=== PATIENT | female | born 1975 | race Caucasian/White ===

== ENCOUNTER 2020-11-13 10:17 | Inpatient (IN) | payer SELFPAY ==
[~2020-11-13] VITALS: Ht 177.8 cm; Wt 99.5 kg
--- NOTE | 2020-11-13 11:51 | RAD ---
Site ID: [id number] EXAMINATION: XR CHEST 1V. HISTORY: 44 years Female shortness of breath. COMPARISON: None. Findings: There are bilateral patchy pulmonary infiltrates mostly in the bases and to lesser extent i n the mid lung perea The heart size is at the upper limits of normal. There is no effusion or pneumo thorax. The mediastinum and radha appear unremarkable. Impression: Patchy bilateral pulmonary infiltrates. Electronically signed by: Colby Dover MD (11/13/2020 11:49 AM) [id number]
--- NOTE | 2020-11-13 12:19 | PHYS DOC ---
General Adult EDM: Chief Complaint: FLU SYMPTOM HPI: HPI: Patient is a 44-year-old female presents emergency department complaining of slow onset of fatigue, increased thirst, nausea, decreased appetite, headaches, muscle cramping, chills, dizziness, coughing up pink frothy sputum for the past 3 days, symptoms started 7 days ago. Denies smoking cigarettes, alcohol consumption, illicit drug use, denies allergies to medicines, takes no prescription medications or vond-rax-bxqtlgn medications at home, states she has no primary care physician, has not received the COVID-19 virus vaccination series. Patient denies other physical complaints or concerns. Review of Systems: Review of Systems: 14 body systems of review of systems have been reviewed. See HPI for pertinent positives and negative responses, otherwise all other systems are negative, nonpertinent or noncontributory. Constitutional: Negative except as outlined in HPI above. Skin: Negative except as outlined in HPI above. Eyes: Negative except as outlined in HPI above. HENT: Negative except as outlined in HPI above. Respiratory: Negative except as outlined in HPI above. Cardiovascular: Negative except as outlined in HPI above. GI: Negative except as outlined in HPI above. : Negative except as outlined in HPI above. Musculoskeletal: Negative except as outlined in HPI above. Integument: Negative except as outlined in HPI above. Neurologic: Negative except as outlined in HPI above. Endocrine: Negative except as outlined in HPI above. Lymphatic: Negative except as outlined in HPI above. Psychiatric: Negative except as outlined in HPI above. Heart Score: C/O Chest Pain: No Risk Factors: Risk Factors: DM, Current or recent (<one month) smoker, HTN, HLP, family history of CAD, obesity. Risk Scores: Score 0 - 3: 2.5% MACE over next 6 weeks - Discharge Home Score 4 - 6: 20.3% MACE over next 6 weeks - Admit for Clinical Observation Score 7 - 10: 72.7% MACE over next 6 weeks - Early Invasive Strategies Physical Exam: PE: Constitutional: Well developed, well nourished, no acute distress, non-toxic appearance. 44-year-old female in no apparent distress. HENT: Normocephalic, atraumatic. Eyes: Conjunctiva normal, no discharge. Neck: Normal range of motion, no stridor. Cardiovascular: No cyanosis appreciated, distal cap refill less than 2 seconds. Regular rate and rhythm. Lungs & Thorax: Patient is in no respiratory distress, no audible adventitious lung sounds appreciated. Lung sounds clear to auscultate all lung perea, normal work of breathing. Abdomen: Nontender, no abnormalities noted. Skin: Warm, dry, no erythema, no rash. Back: No tenderness, no deformities. Extremities: No tenderness, no cyanosis, no clubbing, ROM intact, no edema. Neurologic: Alert and oriented X 3, normal motor function, normal sensory f unction, no focal deficits noted. Psychologic: Affect normal, judgement normal, mood normal. EKG: EKG: EKG performed at 1238 by ED nursing staff shows a sinus tachycardia without other ectopy heart rate 103 bpm, no acute STEMI, no ACS, no acute ischemia appreciated, NC interval 0.188, QTc interval 0.479, EKG interpreted by ED attending physician Dr. Toure. Radiology/Procedures: Radiology/Procedures: PATIENT: LISA PALENCIA ACCOUNT: [id number] : 1975 LOCATION: ER AGE: 44 SEX: F EXAM STATUS: PRE ER ORD. PHYSICIAN: MAEGAN MASON APRN REASON: PUI PROCEDURE: CHEST AP ONLY Site ID: [id number] EXAMINATION: XR CHEST 1V. HISTORY: 44 years Female shortness of breath. COMPARISON: None. Findings: There are bilateral patchy pulmonary infiltrates mostly in the bases and to lesser extent in the mid lung peera The heart size is at the upper limits of normal. There is no effusion or pneumothorax. The mediastinum and radha appear unremarkable. Impression: Patchy bilateral pulmonary infiltrates. Electronically signed by: Colby Dover MD (11/13/2020 11:49 AM) [id number] Course & Med Decision Making: Course & Med Decision Making Pertinent Labs and Imaging studies reviewed. (See chart for details) 44-year-old female, vital signs reviewed, presents emergency department concerning COVID-19 virus type signs and symptoms. Patient's physical examination concerning for hypoxia most likely viral in nature, the patient is not febrile is requiring 4 L nasal cannula to maintain O2 sat above 92% will order cardiorespiratory work-up, COVID-19 testing. Patient's triage O2 sat 83% on room air. Patient was placed on 4 L O2 by nasal cannula by nursing staff. Rapid COVID-19 virus testing positive, chest x-ray consistent with atypical pneumonia, will order CT angio chest to rule out pulmonary emboli CT angio chest nonconcerning for pulmonary embolus, will order Rocephin/azithromycin/Decadron treatment related to atypical versus viral pneumonia most likely Covid pneumonia. Discussed with patient all lab and imag ing findings, recommendation for admission related to hypoxia, patient is amendable to this plan, patient's serum potassium 3.0, will give p.o. potassium supplement in ED today. Discussed patient case and ED work-up with inpatient management physician Dr. Barnes who agrees patient's ED case warrants admission to the hospital for COVID-19 virus positive, hypoxia, hypokalemia, community-acquired pneumonia. Patient awaiting bed assignment by housekeeping room inspector Dr. Barnes will examine patient for ongoing inpatient hospital management, has assumed patient care. Dragon Disclaimer: Dragon Disclaimer: This electronic medical record was generated, in whole or in part, using a voice recognition dictation system. Departure Departure Impression: Primary Impression: Lab test positive for detection of COVID-19 virus Additional Impressions: Community acquired pneumonia Qualified Codes: J18.9 - Pneumonia, unspecified organism Hypoxia Hypokalemia Disposition: ADMITTED INPATIENT Admitting Physician: FLORENTINO (Admit to Dr. Barnes to the CVC unit.) Condition: GUARDED Referrals: NO PCP (PCP) MAEGAN MASON APRN Nov 13, 2020 12:19
[2020-11-13 13:14] LABS: BASO % 0 % (0-3); EOS % 0 % (0-3); HEMATOCRIT 38.9 % (36.0-47.0); HEMOGLOBIN 13.6 g/dL (12.0-15.5); LYMPH % 20 % (24-48); MEAN CORPUSCULAR HEMOGLOBIN 31 pg (25-35); MEAN CORPUSCULAR HGB CONC 35 g/dL (31-37); MEAN CORPUSCULAR VOLUME 90 fL (79-100); MONO # 0.3 x10^3/uL (0.0-1.1); MONO % 7 % (0-9); NEUT # 3.6 x10^3/uL (1.8-7.7); NEUT % 73 % (31-73); PLATELET COUNT 153 x10^3/uL (140-400); RED BLOOD COUNT 4.33 x10^6/uL (3.50-5.40); RED CELL DISTRIBUTION WIDTH 13.8 % (11.5-14.5)
[2020-11-13 13:17] LABS: BILIRUBIN,URINE NEGATIVE (NEG); CLARITY,URINE CLEAR; COLOR,URINE YELLOW; NITRITE,URINE NEGATIVE (NEG); PH,URINE 6.5 (<5.0-8.0); PROTEIN,URINE 30 mg/dL (NEG-TRACE); UROBILINOGEN,URINE 0.2 mg/dL (0.2 mg/dL)
[2020-11-13 13:30] LABS: BACTERIA,URINE FEW /HPF (0-FEW); WBC,URINE OCC /HPF (0-4)
[2020-11-13 13:31] LABS: ALBUMIN 3.2 g/dL (3.4-5.0); ALBUMIN/GLOBULIN RATIO 0.8 (1.0-1.7); CALCIUM 8.9 mg/dL (8.5-10.1); CREATININE 0.9 mg/dL (0.6-1.0); GFR 67.4; TOTAL BILIRUBIN 0.3 mg/dL (0.2-1.0); TOTAL PROTEIN 7.3 g/dL (6.4-8.2)
[2020-11-13] MEDS ORDERED: CONTRAST GIVEN. MC PRN (14:15)
[2020-11-13] MEDS ORDERED: IOHEXOL 350 MG/ML 100 ML VIAL. IV ONE (14:15)
--- NOTE | 2020-11-13 14:24 | RAD ---
CTA CHEST INDICATION: Shortness of breath, hypoxia, PE study Comparison: Chest radiograph 11/13/2020. TECHNIQUE: Following the uneventful administration of intravenous contrast, 100 cc Omnipaque 350, axi al CT sections were obtained through the lungs and upper abdomen. Multiplanar reconstructions and MIP images were obtained. PQRS compliance statement: One or more of the following individualized dose reduction techniques were utilized for this examinat ion: 1. Automated exposure control 2. Adjustment of the mA and/or kV according to patient size 3. Use of iterative reconstruction technique FINDINGS: Pulmonary arteries: No evidence of pulmonary thromboembolic disease Lungs and Airways: Patchy bilateral groundglass opacities and consolidations. No abnormality of the c entral airways. Pleura: The pleural spaces are normal. Heart and Mediastinum: The visualized thyroid is normal in size and attenuation. No axillary or supra clavicular lymphadenopathy. No mediastinal, hilar or retrocrural lymphadenopathy. Calcified mediastin al lymph nodes consistent with remote granulomatous disease. The heart and pericardium are within nor mal limits. The great vessels of the thorax are normal. Abdomen: Hepatic steatosis. Bones and Soft Tissues: The visualized bones and chest wall soft tissues are within normal limits. IMPRESSION: 1. No evidence of pulmonary thromboembolic disease. 2. Patchy bilateral opacities, likely multifocal infection. Electronically signed by: Antonio Robins MD (11/13/2020 2:21 PM) [id number]
[2020-11-13] MEDS ORDERED: cefTRIAXone IV Push 1 GM VIAL. IVP ONE (14:45)
[2020-11-13] MEDS ORDERED: AZITHRMYCN 500MG IVPB FOR OMNI 250 ML IV ONE (14:45)
[2020-11-13] MEDS ORDERED: DEXAMETHASONE SOD PHOS 20 MG/5 ML VIAL. IV ONE (14:45)
[2020-11-13] MEDS ORDERED: POTASSIUM CHLORIDE 20 MEQ TABLET.ER. PO ONE (15:00)
--- NOTE | 2020-11-13 15:57 | PDOC1 ---
History and Physical Date of Service: DOS: DATE: 11/13/20 TIME: 15:53 Chief Complaint: Chief Complain: Flulike symptoms History of Present Illness: HPI: History obtained from discussion with the ED physician and chart review: 44-year-old female with no significant past medical history who presents with a week long symptoms of fatigue, thirst, nausea, muscle aches, headaches, cough that is worse in the last 3 days. Patient reports sick contacts which includes mom and who is also in the ED. Family and also the patient admits that they are scared of the vaccine and also scared of receiving any antiviral medications. Denies smoking, drug use, taking any new medications or vadi-xcy-ahvvwjz medications or seeing a PCP. Patient is not Covid vaccinated. Denies any fevers, chest pain, abdominal pain, diarrhea, pneumaturia, or dysuria. Past Medical/Surgical History: PMH/PSH: No past medical or surgical history Allergies: Allergies: Coded Allergies: No Known Drug Allergies (Unverified , 11/13/20) Family History: Family History: Reviewed with no relevant findings Social History: Social History: Denies any alcohol, drugs or tobacco abuse. Current Medications: Current Medications Current Medications Iohexol (Omnipaque 350 Mg/ml) 100 ml 1X ONCE IV Last administered on 11/13/20at 14:18; Start 11/13/20 at 14:15; Stop 11/13/20 at 14:16; Status DC Info (CONTRAST GIVEN -- Rx MONITORING) 1 each PRN DAILY PRN MC SEE COMMENTS; Start 11/13/20 at 14:15; Stop 11/15/20 at 14:14 Ceftriaxone Sodium (Rocephin) 1 gm 1X ONCE IVP Last administered on 11/13/20at 15:41; Start 11/13/20 at 14:45; Stop 11/13/20 at 14:57; Status DC Azithromycin 250 ml @ 250 mls/hr 1X ONCE IV Last administered on 11/13/20at 15:40; Start 11/13/20 at 14:45; Stop 11/13/20 at 15:44; Status DC Dexamethasone Sodium Phosphate (Decadron) 10 mg 1X ONCE IV Last administered on 11/13/20at 15:39; Start 11/13/20 at 14:45; Stop 11/13/20 at 14:57; Status DC Potassium Chloride (Klor-Con) 40 meq 1X ONCE PO Last administered on 11/13/20at 15:41; Start 11/13/20 at 15:00; Stop 11/13/20 at 15:01; Status DC ROS: Review of Systems Review of System REVIEW OF SYSTEMS: GENERAL: Denies weakness SKIN: No bruising, hair changes or rashes. EYES: No blurred, double or loss of vision. NOSE AND THROAT: No history of nosebleeds, hoarseness or sore throat. HEART: No history of palpitations, chest pain or shortness of breath on exertion. LUNGS: Denies cough, hemoptysis, wheezing or shortness of breath. GASTROINTESTINAL: Denies changes in appetite, nausea, vomiting, diarrhea or constipation. GENITOURINARY: No history of frequency, urgency, hesitancy or nocturia. NEUROLOGIC: Denies history of numbness, tingling, or tremor. PSYCHIATRIC: No history of panic, anxiety or depression. ENDOCRINE: No history of heat or cold intolerance, polyuria or polydipsia. EXTREMITIES: Denies joint pain, pain on walking or stiffness. Physical Exam: Vital Signs: Vital Signs Date Time Temp Pulse Resp B/P (MAP) Pulse Ox O2 Delivery O2 Flow Rate FiO2 11/13/20 13:17 100 19 121/66 (84) 92 Nasal Cannula 5.0 11/13/20 11:26 99.2 99.2 Physcial Exam: General: Well developed, well nourished, mild distress, nasal cannula intact HEENT: Pupils equally round and reactive to light, EOMI, no discharge, normal conjunctiva Neck: Supple, no nuchal rigidity, no JVD, trachea midline, no tenderness Cardiac: RRR, no murmurs, no gallops, no rubs Chest/Lungs: CTAB, no wheeze, no rhonchi, no crackles Abdomen: soft, non-distended, no guarding, no peritoneal signs, non-tender Back: No tenderness Extremities: no edema, pulses intact, non-tender,capillary refill <3 sec bilateral upper and lower extremities, Neuro: Alert and oriented x 4, no focal deficits, normal speech Labs: Labs: Laboratory Tests Test 11/13/20 12:38 11/13/20 12:55 11/13/20 13:02 Urine Collection Type Unknown Urine Color Yellow Urine Clarity Clear Urine pH 6.5 (<5.0-8.0) Urine Specific [place] <=1.005 (1.000-1.030) Urine Protein 30 mg/dL (NEG-TRACE) Urine Glucose (UA) Negative mg/dL (NEG) Urine Ketones (Stick) Negative mg/dL (NEG) Urine Blood Small (NEG) Urine Nitrite Negative (NEG) Urine Bilirubin Negative (NEG) Urine Urobilinogen Dipstick 0.2 mg/dL (0.2 mg/dL) Urine Leukocyte Esterase Negative (NEG) Urine RBC 1-2 /HPF (0-2) Urine WBC Occ /HPF (0-4) Urine Squamous Epithelial Cells Mod /LPF Urine Bacteria Few /HPF (0-FEW) White Blood Count 5.0 x10^3/uL (4.0-11.0) Red Blood Count 4.33 x10^6/uL (3.50-5.40) Hemoglobin 13.6 g/dL (12.0-15.5) Hematocrit 38.9 % (36.0-47.0) Mean Corpuscular Volume 90 fL (79-100) Mean Corpuscular Hemoglobin 31 pg (25-35) Mean Corpuscular Hemoglobin Concent 35 g/dL (31-37) Red Cell Distribution Width 13.8 % (11.5-14.5) Platelet Count 153 x10^3/uL (140-400) Neutrophils (%) (Auto) 73 % (31-73) Lymphocytes (%) (Auto) 20 % (24-48) Monocytes (%) (Auto) 7 % (0-9) Eosinophils (%) (Auto) 0 % (0-3) Basophils (%) (Auto) 0 % (0-3) Neutrophils # (Auto) 3.6 x10^3/uL (1.8-7.7) Lymphocytes # (Auto) 1.0 x10^3/uL (1.0-4.8) Monocytes # (Auto) 0.3 x10^3/uL (0.0-1.1) Eosinophils # (Auto) 0.0 x10^3/uL (0.0-0.7) Basophils # (Auto) 0.0 x10^3/uL (0.0-0.2) Sodium Level 136 mmol/L (136-145) Potassium Level 3.0 mmol/L (3.5-5.1) Chloride Level 98 mmol/L (98-107) Carbon Dioxide Level 33 mmol/L (21-32) Anion Gap 5 (6-14) Blood Urea Nitrogen 5 mg/dL (7-20) Creatinine 0.9 mg/dL (0.6-1.0) Estimated GFR (Cockcroft-Gault) 67.4 BUN/Creatinine Ratio 6 (6-20) Glucose Level 104 mg/dL (70-99) Calcium Level 8.9 mg/dL (8.5-10.1) Total Bilirubin 0.3 mg/dL (0.2-1.0) Aspartate Amino Transf (AST/SGOT) 161 U/L (15-37) Alanine Aminotransferase (ALT/SGPT) 134 U/L (14-59) Alkaline Phosphatase 118 U/L (46-116) Creatine Kinase 1106 U/L (26-192) Creatine Kinase MB (Mass) 2.6 ng/mL (0.0-3.6) Creatine Kinase MB Relative Index 0.2 % (0-4) Troponin I Quantitative < 0.017 ng/mL (0.000-0.055) Total Protein 7.3 g/dL (6.4-8.2) Albumin 3.2 g/dL (3.4-5.0) Albumin/Globulin Ratio 0.8 (1.0-1.7) SARS-CoV-2 Antigen (Rapid) Positive (NEGATIVE) Laboratory Tests Test 11/13/20 12:38 11/13/20 12:55 11/13/20 13:02 Urine Collection Type Unknown Urine Color Yellow Urine Clarity Clear Urine pH 6.5 (<5.0-8.0) Urine Specific [place] <=1.005 (1.000-1.030) Urine Protein 30 mg/dL (NEG-TRACE) Urine Glucose (UA) Negative mg/dL (NEG) Urine Ketones (Stick) Negative mg/dL (NEG) Urine Blood Small (NEG) Urine Nitrite Negative (NEG) Urine Bilirubin Negative (NEG) Urine Urobilinogen Dipstick 0.2 mg/dL (0.2 mg/dL) Urine Leukocyte Esterase Negative (NEG) Urine RBC 1-2 /HPF (0-2) Urine WBC Occ /HPF (0-4) Urine Squamous Epithelial Cells Mod /LPF Urine Bacteria Few /HPF (0-FEW) White Blood Count 5.0 x10^3/uL (4.0-11.0) Red Blood Count 4.33 x10^6/uL (3.50-5.40) Hemoglobin 13.6 g/dL (12.0-15.5) Hematocrit 38.9 % (36.0-47.0) Mean Corpuscular Volume 90 fL (79-100) Mean Corpuscular Hemoglobin 31 pg (25-35) Mean Corpuscular Hemoglobin Concent 35 g/dL (31-37) Red Cell Distribution Width 13.8 % (11.5-14.5) Platelet Count 153 x10^3/uL (140-400) Neutrophils (%) (Auto) 73 % (31-73) Lymphocytes (%) (Auto) 20 % (24-48) Monocytes (%) (Auto) 7 % (0-9) Eosinophils (%) (Auto) 0 % (0-3) Basophils (%) (Auto) 0 % (0-3) Neutrophils # (Auto) 3.6 x10^3/uL (1.8-7.7) Lymphocytes # (Auto) 1.0 x10^3/uL (1.0-4.8) Monocytes # (Auto) 0.3 x10^3/uL (0.0-1.1) Eosinophils # (Auto) 0.0 x10^3/uL (0.0-0.7) Basophils # (Auto) 0.0 x10^3/uL (0.0-0.2) Sodium Level 136 mmol/L (136-145) Potassium Level 3.0 mmol/L (3.5-5.1) Chloride Level 98 mmol/L (98-107) Carbon Dioxide Level 33 mmol/L (21-32) Anion Gap 5 (6-14) Blood Urea Nitrogen 5 mg/dL (7-20) Creatinine 0.9 mg/dL (0.6-1.0) Estimated GFR (Cockcroft-Gault) 67.4 BUN/Creatinine Ratio 6 (6-20) Glucose Level 104 mg/dL (70-99) Calcium Level 8.9 mg/dL (8.5-10.1) Total Bilirubin 0.3 mg/dL (0.2-1.0) Aspartate Amino Transf (AST/SGOT) 161 U/L (15-37) Alanine Aminotransferase (ALT/SGPT) 134 U/L (14-59) Alkaline Phosphatase 118 U/L (46-116) Creatine Kinase 1106 U/L (26-192) Creatine Kinase MB (Mass) 2.6 ng/mL (0.0-3.6) Creatine Kinase MB Relative Index 0.2 % (0-4) Troponin I Quantitative < 0.017 ng/mL (0.000-0.055) Total Protein 7.3 g/dL (6.4-8.2) Albumin 3.2 g/dL (3.4-5.0) Albumin/Globulin Ratio 0.8 (1.0-1.7) SARS-CoV-2 Antigen (Rapid) Positive (NEGATIVE) Images: Images PROCEDURE: CHEST AP ONLY Impression: Patchy bilateral pulmonary infiltrates. PROCEDURE: CT ANGIOGRAPHY CHEST IMPRESSION: 1. No evidence of pulmonary thromboembolic disease. 2. Patchy bilateral opacities, likely multifocal infection. Assessment/Plan Assessment/Plan Acute hypoxic respiratory failure COVID-19 pneumonia Elevated creatinine concerning for rhabdomyolysis versus myopathy Lymphopenia Transaminitis Hypokalemia Moderate protein malnutrition Admit to medicine for further management Repeat CK levels in the morning Pulmonology consult Continue IV thiamine and vitamin C IV Solu-Medrol every 8 hours IV Remdesivir if patient requires O2 supplementation beyond there baseline, however patient is refusing Remdesivir at this time Pending ferritin, LDH, CRP, D-dimer labs Titrate O2 supplementation to maintain O2 saturation greater than 92% Empiric IV antibiotics if patient has clinical presentation for bacterial pneumonia Lovenox for DVT prophylaxis Protonix GI prophylaxis ADA diet Full code Discussed with RN and SW Disposition inpatient management as above Surrogate decision maker is the Mathew rodriguez In addition to my E/M visit, advance care planning done with A total time of 30 minutes was spent from 330 to 430 face to face in discussion with the patient in regards to their goals of care and CODE STATUS. It was explained in depth to the patient that patient does not normally wear oxygen and the fact that she requires O2 means that she is fighting an active infection of Covid. It is also consider the fact that her family is also infected with Covid and they have all have symptoms. Unfortunately, patient is still refusing any IV Remdesivir and has agreed to steroids, O2 supplementation, and some vitamin supplementation. Justifications for Admission Other Justification MARI EARL MD Nov 13, 2020 15:57
[2020-11-13] MEDS ORDERED: DEXTROSE 50% 25 GM / 50ML DISP.SYRIN. IV PRN (16:00)
[2020-11-13] MEDS ORDERED: REMDESIVIR LOAD in IV NORMAL SALINE 250ML TV IV ONE ×2 (18:00→20:00)
[2020-11-13] MEDS: ACETAMINOPHEN 325 MG TABLET. PO PRN (18:04)
[2020-11-13] MEDS: methylPREDNISolone SOD SUCC PF 40 MG/ML VIAL. IV SCH ×2 (19:14→19:16)
[2020-11-13] MEDS: ENOXAPARIN 40 MG/0.4 ML SYRINGE. SQ SCH (19:15)
[2020-11-13] MEDS: BENZONATATE 100 MG CAPSULE. PO PRN (19:15)
[2020-11-13] MEDS: ASCORBIC ACID 1,000 MG TABLET PO SCH (19:15)
[2020-11-13] MEDS: guaiFENesin DM 200MG/20MG 10 ML SYRUP PO PRN (19:15)
[2020-11-13 19:33] VITALS: BP 126/81
[2020-11-13] MEDS ORDERED: REMDESIVIR 100mg in NORMAL SALINE 250ML X 4 DAYS IV SCH (21:00)
[2020-11-13] MEDS ORDERED: BENZONATATE 100 MG CAPSULE. PO SCH (22:00)
[2020-11-13] MEDS ORDERED: methylPREDNISolone SOD SUCC PF 40 MG/ML VIAL. IV SCH (22:00)
[2020-11-13 23:30] VITALS: BP 106/79
[2020-11-14] MEDS: BENZONATATE 100 MG CAPSULE. PO PRN ×2 (03:20→14:43)
[2020-11-14] MEDS: guaiFENesin DM 200MG/20MG 10 ML SYRUP PO PRN ×2 (03:20→14:43)
[2020-11-14 03:30] VITALS: BP 143/88
[2020-11-14] MEDS: methylPREDNISolone SOD SUCC PF 40 MG/ML VIAL. IV SCH ×3 (05:01→20:59)
[2020-11-14 05:44] LABS: BASO % 0 % (0-3); EOS % 0 % (0-3); HEMATOCRIT 39.5 % (36.0-47.0); HEMOGLOBIN 13.6 g/dL (12.0-15.5); LYMPH # 1.1 x10^3/uL (1.0-4.8); LYMPH % 20 % (24-48); MEAN CORPUSCULAR HEMOGLOBIN 31 pg (25-35); MEAN CORPUSCULAR HGB CONC 35 g/dL (31-37); MEAN CORPUSCULAR VOLUME 91 fL (79-100); MONO # 0.5 x10^3/uL (0.0-1.1); MONO % 8 % (0-9); NEUT # 3.9 x10^3/uL (1.8-7.7); NEUT % 72 % (31-73); PLATELET COUNT 165 x10^3/uL (140-400); RED BLOOD COUNT 4.34 x10^6/uL (3.50-5.40); RED CELL DISTRIBUTION WIDTH 13.9 % (11.5-14.5); WHITE BLOOD COUNT 5.5 x10^3/uL (4.0-11.0)
[2020-11-14 05:59] LABS: CALCIUM 8.6 mg/dL (8.5-10.1); CREATININE 0.9 mg/dL (0.6-1.0); GFR 67.4; MAGNESIUM 2.3 mg/dL (1.8-2.4); PHOSPHORUS 3.8 mg/dL (2.6-4.7); POTASSIUM 3.4 mmol/L (3.5-5.1)
[2020-11-14 07:00] VITALS: BP 128/95
[2020-11-14] MEDS: ZINC SULFATE 220 MG CAPSULE. PO SCH (09:07)
[2020-11-14] MEDS: THIAMINE 100 MG TABLET. PO SCH (09:07)
[2020-11-14] MEDS: ASCORBIC ACID 1,000 MG TABLET PO SCH ×3 (09:07→19:42)
[2020-11-14] MEDS: FLUTICASONE 50MCG/NASAL SPRAY 16GM BOTTLE. NS SCH (09:07)
[2020-11-14] MEDS: PANTOPRAZOLE 40 MG TABLET.DR. PO SCH (09:07)
[2020-11-14 10:18] VITALS: BP 129/91
--- NOTE | 2020-11-14 12:59 | NUR ---
SS following for discharge planning. SS reviewed pt chart and discussed with pt RN. Pt is from home with spouse and is currently on three liters venti mask and twelve liters nasal canula. COVID19 positive. Pt on IV Remdesivir and IV Solu-Medrol. Self pay. Med Assist following. SS will continue to follow for discharge planning.
--- NOTE | 2020-11-14 13:02 | PDOC ---
[employer] PROGRESS NOTE Date of Service DOS: DATE: 11/14/20 TIME: 12:59 Chief Complaint Chief Complaint Acute hypoxic respiratory failure COVID-19 pneumonia Elevated creatinine concerning for rhabdomyolysis versus myopathy Lymphopenia Transaminitis Hypokalemia Moderate protein malnutrition History of Present Illness History of Present Illness 11/14/2020: Pt seen and examined. Discussed with RN. Chart reviewed. On 4 L O2 per NC. Vitals/I&O Vitals/I&O: Vital Signs Date Time Temp Pulse Resp B/P (MAP) Pulse Ox O2 Delivery O2 Flow Rate FiO2 11/14/20 10:18 98.6 88 22 129/91 (104) 90 3L VENTIMASK & 12L NASAL CANNULA 98.6 11/14/20 08:00 6.0 I & O 11/13/20 11/13/20 11/14/20 15:00 23:00 07:00 Intake Total 500 ml 220 ml Output Total 300 ml 300 ml Balance 200 ml -80 ml Physical Exam General: Alert Labs Labs: Laboratory Tests Test 11/13/20 13:02 11/13/20 16:56 11/14/20 04:45 SARS-CoV-2 Antigen (Rapid) Positive (NEGATIVE) D-Dimer (Brissa) 1.87 ug/mlFEU (0.00-0.50) White Blood Count 5.5 x10^3/uL (4.0-11.0) Red Blood Count 4.34 x10^6/uL (3.50-5.40) Hemoglobin 13.6 g/dL (12.0-15.5) Hematocrit 39.5 % (36.0-47.0) Mean Corpuscular Volume 91 fL (79-100) Mean Corpuscular Hemoglobin 31 pg (25-35) Mean Corpuscular Hemoglobin Concent 35 g/dL (31-37) Red Cell Distribution Width 13.9 % (11.5-14.5) Platelet Count 165 x10^3/uL (140-400) Neutrophils (%) (Auto) 72 % (31-73) Lymphocytes (%) (Auto) 20 % (24-48) Monocytes (%) (Auto) 8 % (0-9) Eosinophils (%) (Auto) 0 % (0-3) Basophils (%) (Auto) 0 % (0-3) Neutrophils # (Auto) 3.9 x10^3/uL (1.8-7.7) Lymphocytes # (Auto) 1.1 x10^3/uL (1.0-4.8) Monocytes # (Auto) 0.5 x10^3/uL (0.0-1.1) Eosinophils # (Auto) 0.0 x10^3/uL (0.0-0.7) Basophils # (Auto) 0.0 x10^3/uL (0.0-0.2) Sodium Level 140 mmol/L (136-145) Potassium Level 3.4 mmol/L (3.5-5.1) Chloride Level 101 mmol/L (98-107) Carbon Dioxide Level 29 mmol/L (21-32) Anion Gap 10 (6-14) Blood Urea Nitrogen 8 mg/dL (7-20) Creatinine 0.9 mg/dL (0.6-1.0) Estimated GFR (Cockcroft-Gault) 67.4 Glucose Level 149 mg/dL (70-99) Calcium Level 8.6 mg/dL (8.5-10.1) Phosphorus Level 3.8 mg/dL (2.6-4.7) Magnesium Level 2.3 mg/dL (1.8-2.4) Creatine Kinase 959 U/L (26-192) Review of Systems Review of Systems: Pt complains of cough and SOB. Assessment and Plan Assessmemt and Plan Problems Medical Problems: (1) Community acquired pneumonia Status: Acute (2) Hypokalemia Status: Acute (3) Hypoxia Status: Acute (4) Lab test positive for detection of COVID-19 virus Status: Acute Acute hypoxic respiratory failure COVID-19 pneumonia Elevated creatinine concerning for rhabdomyolysis versus myopathy Lymphopenia Transaminitis Hypokalemia Moderate protein malnutrition Plan: Multivitamin with minerals ASA Robitussin with codeine Immodium Continue O2 per MS Trend labs Home meds DVT Prophylaxis Full code Comment Review of Relevant I have reviewed the following items lenny (where applicable) has been applied. Medications: Current Medications Medications (Trade) Dose Ordered Sig/Mona Route PRN Reason Start Time Stop Time Status Last Admin Dose Admin Iohexol (Omnipaque 350 Mg/ml) 100 ml 1X ONCE IV 11/13/20 14:15 11/13/20 14:16 DC 11/13/20 14:18 Ceftriaxone Sodium (Rocephin) 1 gm 1X ONCE IVP 11/13/20 14:45 11/13/20 14:57 DC 11/13/20 15:41 Azithromycin 250 ml @ 250 mls/hr 1X ONCE IV 11/13/20 14:45 11/13/20 15:44 DC 11/13/20 15:40 Dexamethasone Sodium Phosphate (Decadron) 10 mg 1X ONCE IV 11/13/20 14:45 11/13/20 14:57 DC 11/13/20 15:39 Potassium Chloride (Klor-Con) 40 meq 1X ONCE PO 11/13/20 15:00 11/13/20 15:01 DC 11/13/20 15:41 Ascorbic Acid (Vitamin C) 3,000 mg TID PO 11/13/20 21:00 11/14/20 09:07 Thiamine Mononitrate (Vitamin B-1) 300 mg DAILY PO 11/14/20 09:00 11/14/20 09:07 Zinc Sulfate (Orazinc) 220 mg DAILY PO 11/14/20 09:00 11/14/20 09:07 Acetaminophen (Tylenol) 650 mg PRN Q4HRS PRN PO TEMP OVER 100.4F OR MILD PAIN 11/13/20 16:00 11/13/20 18:04 Enoxaparin Sodium (Lovenox 40mg Syringe) 40 mg Q24H SQ 11/13/20 21:00 11/13/20 19:15 Pantoprazole Sodium (Protonix) 40 mg DAILYAC PO 11/14/20 07:30 11/14/20 09:07 Remdesivir 200 mg/ Sodium Chloride 210 ml @ 210 mls/hr 1X ONCE IV 11/13/20 20:00 11/13/20 20:59 DC 11/13/20 19:14 Fluticasone Propionate (Flonase) 2 spray DAILY NS 11/14/20 09:00 11/14/20 09:07 Guaifenesin (Robitussin Dm) 10 ml PRN Q6HRS PRN PO COUGH 11/13/20 18:45 11/14/20 03:20 Benzonatate (Tessalon Perle) 100 mg Q8HRS PRN PO COUGH 11/13/20 19:15 11/14/20 03:20 Methylprednisolone Sodium Succinate (SOLU-Medrol 40MG VIAL) 40 mg Q8HRS IV 11/13/20 19:30 11/14/20 05:01 Justifications for Admission Other Justification COVID-19 positive test (U07.1, COVID-19) with Acute Pneumonia (J12.89, Other viral pneumonia) (If respiratory failure or sepsis present, add as separate assessment) SMITHA CLEVELAND III DO Nov 14, 2020 13:02
--- NOTE | 2020-11-14 14:18 | PDOC ---
PULMONARY PROGRESS NOTES DATE: 11/14/20 TIME: 14:17 Vitals Vital Signs Date Time Temp Pulse Resp B/P (MAP) Pulse Ox O2 Delivery O2 Flow Rate FiO2 11/14/20 10:18 98.6 88 22 129/91 (104) 90 3L V[place] & 12L NASAL CANNULA 98.6 11/14/20 08:00 6.0 Labs Laboratory Tests Test 11/13/20 12:38 11/13/20 12:55 11/13/20 13:02 11/13/20 16:56 Urine Collection Type Unknown Urine Color Yellow Urine Clarity Clear Urine pH 6.5 (<5.0-8.0) Urine Specific [place] <=1.005 (1.000-1.030) Urine Protein 30 mg/dL (NEG-TRACE) Urine Glucose (UA) Negative mg/dL (NEG) Urine Ketones (Stick) Negative mg/dL (NEG) Urine Blood Small (NEG) Urine Nitrite Negative (NEG) Urine Bilirubin Negative (NEG) Urine Urobilinogen Dipstick 0.2 mg/dL (0.2 mg/dL) Urine Leukocyte Esterase Negative (NEG) Urine RBC 1-2 /HPF (0-2) Urine WBC Occ /HPF (0-4) Urine Squamous Epithelial Cells Mod /LPF Urine Bacteria Few /HPF (0-FEW) White Blood Count 5.0 x10^3/uL (4.0-11.0) Red Blood Count 4.33 x10^6/uL (3.50-5.40) Hemoglobin 13.6 g/dL (12.0-15.5) Hematocrit 38.9 % (36.0-47.0) Mean Corpuscular Volume 90 fL (79-100) Mean Corpuscular Hemoglobin 31 pg (25-35) Mean Corpuscular Hemoglobin Concent 35 g/dL (31-37) Red Cell Distribution Width 13.8 % (11.5-14.5) Platelet Count 153 x10^3/uL (140-400) Neutrophils (%) (Auto) 73 % (31-73) Lymphocytes (%) (Auto) 20 % (24-48) Monocytes (%) (Auto) 7 % (0-9) Eosinophils (%) (Auto) 0 % (0-3) Basophils (%) (Auto) 0 % (0-3) Neutrophils # (Auto) 3.6 x10^3/uL (1.8-7.7) Lymphocytes # (Auto) 1.0 x10^3/uL (1.0-4.8) Monocytes # (Auto) 0.3 x10^3/uL (0.0-1.1) Eosinophils # (Auto) 0.0 x10^3/uL (0.0-0.7) Basophils # (Auto) 0.0 x10^3/uL (0.0-0.2) Sodium Level 136 mmol/L (136-145) Potassium Level 3.0 mmol/L (3.5-5.1) Chloride Level 98 mmol/L (98-107) Carbon Dioxide Level 33 mmol/L (21-32) Anion Gap 5 (6-14) Blood Urea Nitrogen 5 mg/dL (7-20) Creatinine 0.9 mg/dL (0.6-1.0) Estimated GFR (Cockcroft-Gault) 67.4 BUN/Creatinine Ratio 6 (6-20) Glucose Level 104 mg/dL (70-99) Calcium Level 8.9 mg/dL (8.5-10.1) Total Bilirubin 0.3 mg/dL (0.2-1.0) Aspartate Amino Transf (AST/SGOT) 161 U/L (15-37) Alanine Aminotransferase (ALT/SGPT) 134 U/L (14-59) Alkaline Phosphatase 118 U/L (46-116) Creatine Kinase 1106 U/L (26-192) Creatine Kinase MB (Mass) 2.6 ng/mL (0.0-3.6) Creatine Kinase MB Relative Index 0.2 % (0-4) Troponin I Quantitative < 0.017 ng/mL (0.000-0.055) Total Protein 7.3 g/dL (6.4-8.2) Albumin 3.2 g/dL (3.4-5.0) Albumin/Globulin Ratio 0.8 (1.0-1.7) Procalcitonin 0.17 ng/mL (0.00-0.10) SARS-CoV-2 Antigen (Rapid) Positive (NEGATIVE) D-Dimer (Brissa) 1.87 ug/mlFEU (0.00-0.50) Test 11/14/20 04:45 White Blood Count 5.5 x10^3/uL (4.0-11.0) Red Blood Count 4.34 x10^6/uL (3.50-5.40) Hemoglobin 13.6 g/dL (12.0-15.5) Hematocrit 39.5 % (36.0-47.0) Mean Corpuscular Volume 91 fL (79-100) Mean Corpuscular Hemoglobin 31 pg (25-35) Mean Corpuscular Hemoglobin Concent 35 g/dL (31-37) Red Cell Distribution Width 13.9 % (11.5-14.5) Platelet Count 165 x10^3/uL (140-400) Neutrophils (%) (Auto) 72 % (31-73) Lymphocytes (%) (Auto) 20 % (24-48) Monocytes (%) (Auto) 8 % (0-9) Eosinophils (%) (Auto) 0 % (0-3) Basophils (%) (Auto) 0 % (0-3) Neutrophils # (Auto) 3.9 x10^3/uL (1.8-7.7) Lymphocytes # (Auto) 1.1 x10^3/uL (1.0-4.8) Monocytes # (Auto) 0.5 x10^3/uL (0.0-1.1) Eosinophils # (Auto) 0.0 x10^3/uL (0.0-0.7) Basophils # (Auto) 0.0 x10^3/uL (0.0-0.2) Sodium Level 140 mmol/L (136-145) Potassium Level 3.4 mmol/L (3.5-5.1) Chloride Level 101 mmol/L (98-107) Carbon Dioxide Level 29 mmol/L (21-32) Anion Gap 10 (6-14) Blood Urea Nitrogen 8 mg/dL (7-20) Creatinine 0.9 mg/dL (0.6-1.0) Estimated GFR (Cockcroft-Gault) 67.4 Glucose Level 149 mg/dL (70-99) Calcium Level 8.6 mg/dL (8.5-10.1) Phosphorus Level 3.8 mg/dL (2.6-4.7) Magnesium Level 2.3 mg/dL (1.8-2.4) Creatine Kinase 959 U/L (26-192) Laboratory Tests Test 11/13/20 16:56 11/14/20 04:45 D-Dimer (Brissa) 1.87 ug/mlFEU (0.00-0.50) White Blood Count 5.5 x10^3/uL (4.0-11.0) Red Blood Count 4.34 x10^6/uL (3.50-5.40) Hemoglobin 13.6 g/dL (12.0-15.5) Hematocrit 39.5 % (36.0-47.0) Mean Corpuscular Volume 91 fL (79-100) Mean Corpuscular Hemoglobin 31 pg (25-35) Mean Corpuscular Hemoglobin Concent 35 g/dL (31-37) Red Cell Distribution Width 13.9 % (11.5-14.5) Platelet Count 165 x10^3/uL (140-400) Neutrophils (%) (Auto) 72 % (31-73) Lymphocytes (%) (Auto) 20 % (24-48) Monocytes (%) (Auto) 8 % (0-9) Eosinophils (%) (Auto) 0 % (0-3) Basophils (%) (Auto) 0 % (0-3) Neutrophils # (Auto) 3.9 x10^3/uL (1.8-7.7) Lymphocytes # (Auto) 1.1 x10^3/uL (1.0-4.8) Monocytes # (Auto) 0.5 x10^3/uL (0.0-1.1) Eosinophils # (Auto) 0.0 x10^3/uL (0.0-0.7) Basophils # (Auto) 0.0 x10^3/uL (0.0-0.2) Sodium Level 140 mmol/L (136-145) Potassium Level 3.4 mmol/L (3.5-5.1) Chloride Level 101 mmol/L (98-107) Carbon Dioxide Level 29 mmol/L (21-32) Anion Gap 10 (6-14) Blood Urea Nitrogen 8 mg/dL (7-20) Creatinine 0.9 mg/dL (0.6-1.0) Estimated GFR (Cockcroft-Gault) 67.4 Glucose Level 149 mg/dL (70-99) Calcium Level 8.6 mg/dL (8.5-10.1) Phosphorus Level 3.8 mg/dL (2.6-4.7) Magnesium Level 2.3 mg/dL (1.8-2.4) Creatine Kinase 959 U/L (26-192) Medications Active Scripts Medications Dose Route/Sig Max Daily Dose Days Date Category No Known Medications Prior To Admisstion (Info) Each 1 Each 1X 11/13/20 Reported Impression . Full note dictated COVID-19 viral pneumonia/sepsis Patient progressing, requiring increasing amount of oxygen We will add tocilizumab JUNAID PISANO MD Nov 14, 2020 14:18
[2020-11-14] MEDS: LOPERAMIDE 2 MG/15 ML ORAL SUSP. PO PRN (14:42)
[2020-11-14] MEDS: ASPIRIN CHEWABLE 81 MG TABLET. PO SCH (14:43)
[2020-11-14] MEDS: MULTIVITAMIN with MINERAL TABLET. PO SCH (14:43)
[2020-11-14] MEDS: ACETAMINOPHEN 325 MG TABLET. PO PRN (14:53)
[2020-11-14 15:00] VITALS: BP 140/79
[2020-11-14] MEDS ORDERED: TOCILIZUMAB 640 MG in IV NORMAL SALINE 100ML 68 ML IV ONE (16:00)
--- NOTE | 2020-11-14 16:29 | CONS ---
DATE OF CONSULTATION: 11/14/2020 ATTENDING PHYSICIAN: Berto Barnes MD REASON FOR CONSULTATION: The patient is seen in pulmonary consultation at the request of Dr. Duggan for acute hypoxemic respiratory failure related to COVID-19. HISTORY OF PRESENT ILLNESS: The patient is a 44-year-old that has been ill for approximately 8 days. She tested positive yesterday, came in with increasing shortness of breath, loss of taste. She was evaluated, she tested positive for COVID-19. The patient also had a chest x-ray, which revealed bilateral pulmonary infiltrates compatible with COVID-19. She had a CT angiogram that revealed no evidence of PE. There was patchy bilateral opacities. The patient denies any prior history of asthma or tobacco use. PAST MEDICAL HISTORY: Unremarkable. ALLERGIES: No known drug allergies. REVIEW OF SYSTEMS: As indicated above, otherwise a 10-point system was reviewed and negative. VACCINATION HISTORY: She is not up-to-date on COVID. CURRENT MEDICATIONS: List was reviewed. PHYSICAL EXAMINATION: GENERAL: She appeared to be of stated age. She is currently on oxygen supplementation nonrebreather and nasal cannula, saturations hovering around 92%. Yesterday, she required 4 liters. HEENT: Eyes, the sclerae were nonicteric. NECK: Jugular venous distention was not elevated. No lymphadenopathy. CHEST: Full expansion. LUNGS: Crackles in the bases. No wheezes. CARDIOVASCULAR: Regular rate and rhythm with S1, S2, no S3. ABDOMEN: Soft. EXTREMITIES: No clubbing, cyanosis or edema. IMPRESSION: 1. Acute hypoxemic respiratory failure. 2. COVID-19 viral pneumonia. 3. Abnormal x-ray. 4. Possible bacterial pneumonia. 5. Lymphopenia. 6. Elevated transaminases. PLAN: 1. We will continue supplementation with oxygen. 2. Continue remdesivir, steroids. 3. Administered tocilizumab. 4. DVT and GI prophylaxis. 5. May need Vapotherm. 6. Hopefully, she does not progress to needing ICU care. [place] DR: Simeon TID: [id number]
[2020-11-14] MEDS: HYDROcodone/APAP 5/325MG 1 TAB TABLET PO PRN (17:29)
[2020-11-14] MEDS ORDERED: REMDESIVIR 100mg in NORMAL SALINE 250ML X 4 DAYS IV SCH (18:00)
[2020-11-14] MEDS: OXYMETAZOLINE 0.05% NASAL SPRAY 30ML BOTTLE. NS PRN (18:56)
[2020-11-14] MEDS: ENOXAPARIN 40 MG/0.4 ML SYRINGE. SQ SCH (19:42)
[2020-11-14] MEDS: REMDESIVIR 100mg in NORMAL SALINE 250ML X 4 DAYS IV SCH (19:42)
[2020-11-14 19:45] VITALS: BP 144/100
[2020-11-14 23:15] VITALS: BP 141/94
[2020-11-15] MEDS: HYDROcodone/APAP 5/325MG 1 TAB TABLET PO PRN (00:39)
[2020-11-15] MEDS: BENZONATATE 100 MG CAPSULE. PO PRN ×2 (00:39→09:48)
[2020-11-15] MEDS: guaiFENesin DM 200MG/20MG 10 ML SYRUP PO PRN ×2 (00:39→12:32)
[2020-11-15 03:15] VITALS: BP 150/93
[2020-11-15 04:32] LABS: BASO % 0 % (0-3); EOS % 0 % (0-3); HEMATOCRIT 38.9 % (36.0-47.0); HEMOGLOBIN 13.5 g/dL (12.0-15.5); LYMPH # 1.8 x10^3/uL (1.0-4.8); LYMPH % 15 % (24-48); MEAN CORPUSCULAR HEMOGLOBIN 31 pg (25-35); MEAN CORPUSCULAR HGB CONC 35 g/dL (31-37); MEAN CORPUSCULAR VOLUME 90 fL (79-100); MONO # 1.3 x10^3/uL (0.0-1.1); MONO % 11 % (0-9); NEUT # 9.2 x10^3/uL (1.8-7.7); NEUT % 74 % (31-73); PLATELET COUNT 230 x10^3/uL (140-400); RED CELL DISTRIBUTION WIDTH 13.9 % (11.5-14.5); WHITE BLOOD COUNT 12.3 x10^3/uL (4.0-11.0)
[2020-11-15 04:45] LABS: CALCIUM 8.8 mg/dL (8.5-10.1); CREATININE 0.9 mg/dL (0.6-1.0); GFR 67.4; MAGNESIUM 2.4 mg/dL (1.8-2.4); POTASSIUM 3.2 mmol/L (3.5-5.1)
[2020-11-15] MEDS: methylPREDNISolone SOD SUCC PF 40 MG/ML VIAL. IV SCH ×3 (05:01→22:05)
[2020-11-15 07:00] VITALS: BP 140/91
--- NOTE | 2020-11-15 08:41 | PDOC ---
[facility] PROGRESS NOTE Date of Service DOS: DATE: 11/15/20 TIME: 08:37 Chief Complaint Chief Complaint Acute hypoxic respiratory failure COVID-19 pneumonia Elevated creatinine concerning for rhabdomyolysis versus myopathy Lymphopenia Transaminitis Hypokalemia Moderate protein malnutrition History of Present Illness History of Present Illness 11/15/2020: Pt seen and examined. Discussed with RN. Chart reviewed. On Vapotherm 40L 100% FiO2. 11/14/2020: Pt seen and examined. Discussed with RN. Chart reviewed. On 4 L O2 per NC. Vitals/I&O Vitals/I&O: Vital Signs Date Time Temp Pulse Resp B/P (MAP) Pulse Ox O2 Delivery O2 Flow Rate FiO2 11/15/20 08:19 92 VAPOTHERM 40.0 11/15/20 07:00 97.8 84 24 140/91 (107) 97.8 I & O 11/14/20 11/14/20 11/15/20 15:00 23:00 07:00 Intake Total 840 ml 720 ml Output Total 500 ml Balance 840 ml 720 ml -500 ml Physical Exam General: Alert Labs Labs: Laboratory Tests Test 11/15/20 03:50 11/15/20 03:55 Sodium Level 139 mmol/L (136-145) Potassium Level 3.2 mmol/L (3.5-5.1) Chloride Level 101 mmol/L (98-107) Carbon Dioxide Level 27 mmol/L (21-32) Anion Gap 11 (6-14) Blood Urea Nitrogen 12 mg/dL (7-20) Creatinine 0.9 mg/dL (0.6-1.0) Estimated GFR (Cockcroft-Gault) 67.4 Glucose Level 145 mg/dL (70-99) Calcium Level 8.8 mg/dL (8.5-10.1) Magnesium Level 2.4 mg/dL (1.8-2.4) White Blood Count 12.3 x10^3/uL (4.0-11.0) Red Blood Count 4.30 x10^6/uL (3.50-5.40) Hemoglobin 13.5 g/dL (12.0-15.5) Hematocrit 38.9 % (36.0-47.0) Mean Corpuscular Volume 90 fL (79-100) Mean Corpuscular Hemoglobin 31 pg (25-35) Mean Corpuscular Hemoglobin Concent 35 g/dL (31-37) Red Cell Distribution Width 13.9 % (11.5-14.5) Platelet Count 230 x10^3/uL (140-400) Neutrophils (%) (Auto) 74 % (31-73) Lymphocytes (%) (Auto) 15 % (24-48) Monocytes (%) (Auto) 11 % (0-9) Eosinophils (%) (Auto) 0 % (0-3) Basophils (%) (Auto) 0 % (0-3) Neutrophils # (Auto) 9.2 x10^3/uL (1.8-7.7) Lymphocytes # (Auto) 1.8 x10^3/uL (1.0-4.8) Monocytes # (Auto) 1.3 x10^3/uL (0.0-1.1) Eosinophils # (Auto) 0.0 x10^3/uL (0.0-0.7) Basophils # (Auto) 0.0 x10^3/uL (0.0-0.2) Review of Systems Review of Systems: Pt complains of cough. Assessment and Plan Assessmemt and Plan Problems Medical Problems: (1) Community acquired pneumonia Status: Acute (2) Hypokalemia Status: Acute (3) Hypoxia Status: Acute (4) Lab test positive for detection of COVID-19 virus Status: Acute Acute hypoxic respiratory failure COVID-19 pneumonia Elevated creatinine concerning for rhabdomyolysis versus myopathy Lymphopenia Transaminitis Hypokalemia Moderate protein malnutrition Plan: Continue Vapotherm 40L 100% FiO2 Cardiac monitoring COVID Protocol Await further pulmonary input DVT Prophylaxis Trend labs Full code Prognosis guarded Comment Review of Relevant I have reviewed the following items lenny (where applicable) has been applied. Medications: Current Medications Medications (Trade) Dose Ordered Sig/Mona Route PRN Reason Start Time Stop Time Status Last Admin Dose Admin Thiamine Mononitrate (Vitamin B-1) 300 mg DAILY PO 11/14/20 09:00 11/14/20 09:07 Zinc Sulfate (Orazinc) 220 mg DAILY PO 11/14/20 09:00 11/14/20 09:07 Remdesivir 100 mg/ Sodium Chloride 230 ml @ 460 mls/hr Q24H IV 11/14/20 21:00 11/17/20 21:29 11/14/20 19:42 Fluticasone Propionate (Flonase) 2 spray DAILY NS 11/14/20 09:00 11/14/20 09:07 Aspirin (Aspirin Chewable) 81 mg DAILYWBKFT PO 11/14/20 14:00 11/14/20 14:43 Loperamide HCl (Immodium Oral Susp) 2 mg PRN Q30MIN PRN PO DIARRHEA 11/14/20 13:15 11/14/20 14:42 Multivitamins (Thera M Plus) 1 tab DAILY PO 11/14/20 14:00 11/14/20 14:43 Tocilizumab 640 mg/Sodium Chloride 100 ml @ 100 mls/hr 1X ONCE IV 11/14/20 16:00 11/14/20 16:59 DC 11/14/20 16:41 Acetaminophen/ Hydrocodone Bitart (Lortab 5/325) 1 tab PRN Q4HRS PRN PO MODERATE-SEVERE PAIN 11/14/20 16:45 11/15/20 00:39 Oxymetazoline HCl (Afrin) 2 spray PRN BID PRN NS CONGESTION 11/14/20 16:45 11/14/20 18:56 Justifications for Admission Other Justification COVID-19 positive test (U07.1, COVID-19) with Acute Pneumonia (J12.89, Other viral pneumonia) (If respiratory failure or sepsis present, add as separate assessment) SMITHA CLEVELAND III DO Nov 15, 2020 08:41
[2020-11-15] MEDS ORDERED: POTASSIUM CHLORIDE 20 MEQ TABLET.ER. PO ONE (09:00)
--- NOTE | 2020-11-15 09:22 | PDOC ---
PULMONARY PROGRESS NOTES DATE: 11/15/20 TIME: 09:22 Subjective Overnight patient required increasing oxygen Currently on 40 L flow 100% FiO2 Vitals Vital Signs Date Time Temp Pulse Resp B/P (MAP) Pulse Ox O2 Delivery O2 Flow Rate FiO2 11/15/20 08:19 92 VAPOTHERM 40.0 11/15/20 07:00 97.8 84 24 140/91 (107) 97.8 Comments On visual inspection, patient appears to be less short of breath than yesterday, Patient seen during the ID- pandemic no significant respiratory distress no paroxysmal breathing pattern no new rash Labs Laboratory Tests Test 11/13/20 12:38 11/13/20 12:55 11/13/20 13:02 11/13/20 16:56 Urine Collection Type Unknown Urine Color Yellow Urine Clarity Clear Urine pH 6.5 (<5.0-8.0) Urine Specific [place] <=1.005 (1.000-1.030) Urine Protein 30 mg/dL (NEG-TRACE) Urine Glucose (UA) Negative mg/dL (NEG) Urine Ketones (Stick) Negative mg/dL (NEG) Urine Blood Small (NEG) Urine Nitrite Negative (NEG) Urine Bilirubin Negative (NEG) Urine Urobilinogen Dipstick 0.2 mg/dL (0.2 mg/dL) Urine Leukocyte Esterase Negative (NEG) Urine RBC 1-2 /HPF (0-2) Urine WBC Occ /HPF (0-4) Urine Squamous Epithelial Cells Mod /LPF Urine Bacteria Few /HPF (0-FEW) White Blood Count 5.0 x10^3/uL (4.0-11.0) Red Blood Count 4.33 x10^6/uL (3.50-5.40) Hemoglobin 13.6 g/dL (12.0-15.5) Hematocrit 38.9 % (36.0-47.0) Mean Corpuscular Volume 90 fL (79-100) Mean Corpuscular Hemoglobin 31 pg (25-35) Mean Corpuscular Hemoglobin Concent 35 g/dL (31-37) Red Cell Distribution Width 13.8 % (11.5-14.5) Platelet Count 153 x10^3/uL (140-400) Neutrophils (%) (Auto) 73 % (31-73) Lymphocytes (%) (Auto) 20 % (24-48) Monocytes (%) (Auto) 7 % (0-9) Eosinophils (%) (Auto) 0 % (0-3) Basophils (%) (Auto) 0 % (0-3) Neutrophils # (Auto) 3.6 x10^3/uL (1.8-7.7) Lymphocytes # (Auto) 1.0 x10^3/uL (1.0-4.8) Monocytes # (Auto) 0.3 x10^3/uL (0.0-1.1) Eosinophils # (Auto) 0.0 x10^3/uL (0.0-0.7) Basophils # (Auto) 0.0 x10^3/uL (0.0-0.2) Sodium Level 136 mmol/L (136-145) Potassium Level 3.0 mmol/L (3.5-5.1) Chloride Level 98 mmol/L (98-107) Carbon Dioxide Level 33 mmol/L (21-32) Anion Gap 5 (6-14) Blood Urea Nitrogen 5 mg/dL (7-20) Creatinine 0.9 mg/dL (0.6-1.0) Estimated GFR (Cockcroft-Gault) 67.4 BUN/Creatinine Ratio 6 (6-20) Glucose Level 104 mg/dL (70-99) Calcium Level 8.9 mg/dL (8.5-10.1) Total Bilirubin 0.3 mg/dL (0.2-1.0) Aspartate Amino Transf (AST/SGOT) 161 U/L (15-37) Alanine Aminotransferase (ALT/SGPT) 134 U/L (14-59) Alkaline Phosphatase 118 U/L (46-116) Creatine Kinase 1106 U/L (26-192) Creatine Kinase MB (Mass) 2.6 ng/mL (0.0-3.6) Creatine Kinase MB Relative Index 0.2 % (0-4) Troponin I Quantitative < 0.017 ng/mL (0.000-0.055) Total Protein 7.3 g/dL (6.4-8.2) Albumin 3.2 g/dL (3.4-5.0) Albumin/Globulin Ratio 0.8 (1.0-1.7) Procalcitonin 0.17 ng/mL (0.00-0.10) SARS-CoV-2 Antigen (Rapid) Positive (NEGATIVE) D-Dimer (Brissa) 1.87 ug/mlFEU (0.00-0.50) Test 11/14/20 04:45 11/15/20 03:50 11/15/20 03:55 White Blood Count 5.5 x10^3/uL (4.0-11.0) 12.3 x10^3/uL (4.0-11.0) Red Blood Count 4.34 x10^6/uL (3.50-5.40) 4.30 x10^6/uL (3.50-5.40) Hemoglobin 13.6 g/dL (12.0-15.5) 13.5 g/dL (12.0-15.5) Hematocrit 39.5 % (36.0-47.0) 38.9 % (36.0-47.0) Mean Corpuscular Volume 91 fL (79-100) 90 fL (79-100) Mean Corpuscular Hemoglobin 31 pg (25-35) 31 pg (25-35) Mean Corpuscular Hemoglobin Concent 35 g/dL (31-37) 35 g/dL (31-37) Red Cell Distribution Width 13.9 % (11.5-14.5) 13.9 % (11.5-14.5) Platelet Count 165 x10^3/uL (140-400) 230 x10^3/uL (140-400) Neutrophils (%) (Auto) 72 % (31-73) 74 % (31-73) Lymphocytes (%) (Auto) 20 % (24-48) 15 % (24-48) Monocytes (%) (Auto) 8 % (0-9) 11 % (0-9) Eosinophils (%) (Auto) 0 % (0-3) 0 % (0-3) Basophils (%) (Auto) 0 % (0-3) 0 % (0-3) Neutrophils # (Auto) 3.9 x10^3/uL (1.8-7.7) 9.2 x10^3/uL (1.8-7.7) Lymphocytes # (Auto) 1.1 x10^3/uL (1.0-4.8) 1.8 x10^3/uL (1.0-4.8) Monocytes # (Auto) 0.5 x10^3/uL (0.0-1.1) 1.3 x10^3/uL (0.0-1.1) Eosinophils # (Auto) 0.0 x10^3/uL (0.0-0.7) 0.0 x10^3/uL (0.0-0.7) Basophils # (Auto) 0.0 x10^3/uL (0.0-0.2) 0.0 x10^3/uL (0.0-0.2) Sodium Level 140 mmol/L (136-145) 139 mmol/L (136-145) Potassium Level 3.4 mmol/L (3.5-5.1) 3.2 mmol/L (3.5-5.1) Chloride Level 101 mmol/L (98-107) 101 mmol/L (98-107) Carbon Dioxide Level 29 mmol/L (21-32) 27 mmol/L (21-32) Anion Gap 10 (6-14) 11 (6-14) Blood Urea Nitrogen 8 mg/dL (7-20) 12 mg/dL (7-20) Creatinine 0.9 mg/dL (0.6-1.0) 0.9 mg/dL (0.6-1.0) Estimated GFR (Cockcroft-Gault) 67.4 67.4 Glucose Level 149 mg/dL (70-99) 145 mg/dL (70-99) Calcium Level 8.6 mg/dL (8.5-10.1) 8.8 mg/dL (8.5-10.1) Phosphorus Level 3.8 mg/dL (2.6-4.7) Magnesium Level 2.3 mg/dL (1.8-2.4) 2.4 mg/dL (1.8-2.4) Creatine Kinase 959 U/L (26-192) C-Reactive Protein, Quantitative 83.5 mg/L (0-3.3) Laboratory Tests Test 11/15/20 03:50 11/15/20 03:55 Sodium Level 139 mmol/L (136-145) Potassium Level 3.2 mmol/L (3.5-5.1) Chloride Level 101 mmol/L (98-107) Carbon Dioxide Level 27 mmol/L (21-32) Anion Gap 11 (6-14) Blood Urea Nitrogen 12 mg/dL (7-20) Creatinine 0.9 mg/dL (0.6-1.0) Estimated GFR (Cockcroft-Gault) 67.4 Glucose Level 145 mg/dL (70-99) Calcium Level 8.8 mg/dL (8.5-10.1) Magnesium Level 2.4 mg/dL (1.8-2.4) White Blood Count 12.3 x10^3/uL (4.0-11.0) Red Blood Count 4.30 x10^6/uL (3.50-5.40) Hemoglobin 13.5 g/dL (12.0-15.5) Hematocrit 38.9 % (36.0-47.0) Mean Corpuscular Volume 90 fL (79-100) Mean Corpuscular Hemoglobin 31 pg (25-35) Mean Corpuscular Hemoglobin Concent 35 g/dL (31-37) Red Cell Distribution Width 13.9 % (11.5-14.5) Platelet Count 230 x10^3/uL (140-400) Neutrophils (%) (Auto) 74 % (31-73) Lymphocytes (%) (Auto) 15 % (24-48) Monocytes (%) (Auto) 11 % (0-9) Eosinophils (%) (Auto) 0 % (0-3) Basophils (%) (Auto) 0 % (0-3) Neutrophils # (Auto) 9.2 x10^3/uL (1.8-7.7) Lymphocytes # (Auto) 1.8 x10^3/uL (1.0-4.8) Monocytes # (Auto) 1.3 x10^3/uL (0.0-1.1) Eosinophils # (Auto) 0.0 x10^3/uL (0.0-0.7) Basophils # (Auto) 0.0 x10^3/uL (0.0-0.2) Medications Active Scripts Medications Dose Route/Sig Max Daily Dose Days Date Category No Known Medications Prior To Admisstion (Info) Each 1 Each 1X 11/13/20 Reported Impression . IMPRESSION: 1. Acute hypoxemic respiratory failure. 2. COVID-19 viral pneumonia. 3. Abnormal x-ray. 4. Possible bacterial pneumonia. 5. Lymphopenia. 6. Elevated transaminases. Plan . Updated 11/15 Continue remdesivir Continue steroids Received tocilizumab DVT GI prophylaxis No need to transfer to the intensive care unit at this time PLAN: 1. We will continue supplementation with oxygen. 2. Continue remdesivir, steroids. 3. Administered tocilizumab. 4. DVT and GI prophylaxis. 5. May need Vapotherm. 6. Hopefully, she does not progress to needing ICU care. JUNAID PISANO MD Nov 15, 2020 09:22
[2020-11-15] MEDS: ASCORBIC ACID 1,000 MG TABLET PO SCH ×3 (09:47→22:06)
[2020-11-15] MEDS: LOPERAMIDE 2 MG/15 ML ORAL SUSP. PO PRN (09:47)
[2020-11-15] MEDS: ASPIRIN CHEWABLE 81 MG TABLET. PO SCH (09:48)
[2020-11-15] MEDS: MULTIVITAMIN with MINERAL TABLET. PO SCH (09:48)
[2020-11-15] MEDS: PANTOPRAZOLE 40 MG TABLET.DR. PO SCH (09:48)
[2020-11-15] MEDS: THIAMINE 100 MG TABLET. PO SCH (09:48)
[2020-11-15] MEDS: FLUTICASONE 50MCG/NASAL SPRAY 16GM BOTTLE. NS SCH (09:49)
[2020-11-15] MEDS: ZINC SULFATE 220 MG CAPSULE. PO SCH (09:49)
[2020-11-15 11:11] VITALS: BP 145/102
[2020-11-15] MEDS: ACETAMINOPHEN 325 MG TABLET. PO PRN ×2 (12:38→17:03)
[2020-11-15] MEDS: OXYMETAZOLINE 0.05% NASAL SPRAY 30ML BOTTLE. NS PRN (13:43)
--- NOTE | 2020-11-15 14:03 | NUR ---
SS following up with discharge planning. SS reviewed pt chart and discussed with pt RN. Pt is currently requiring Non-Rebreather and Vapotherm at 100%. COVID19 positive. Pt on IV Remdesivir and IV Solu-Medrol. Not stable. Self pay. Med Assist following. SS will continue to follow for discharge planning.
[2020-11-15 15:00] VITALS: BP 134/84
[2020-11-15] MEDS: CALCIUM CARBONATE 500 MG TAB.CHEW PO PRN (17:03)
[2020-11-15 19:54] VITALS: BP 136/89
[2020-11-15] MEDS: ENOXAPARIN 40 MG/0.4 ML SYRINGE. SQ SCH (22:07)
[2020-11-15] MEDS: REMDESIVIR 100mg in NORMAL SALINE 250ML X 4 DAYS IV SCH (22:07)
[2020-11-15] MEDS: STERILE WATER for RESP 1,000 ML BAG. INH PRN (22:59)
[2020-11-15 23:06] VITALS: BP 137/88
[2020-11-16] MEDS: ACETAMINOPHEN 325 MG TABLET. PO PRN (00:14)
[2020-11-16 03:31] VITALS: BP 147/96
[2020-11-16 04:23] LABS: BASO % 0 % (0-3); EOS % 0 % (0-3); HEMATOCRIT 38.5 % (36.0-47.0); HEMOGLOBIN 13.4 g/dL (12.0-15.5); LYMPH # 1.8 x10^3/uL (1.0-4.8); LYMPH % 12 % (24-48); MEAN CORPUSCULAR HEMOGLOBIN 32 pg (25-35); MEAN CORPUSCULAR HGB CONC 35 g/dL (31-37); MEAN CORPUSCULAR VOLUME 91 fL (79-100); MONO # 1.6 x10^3/uL (0.0-1.1); MONO % 11 % (0-9); NEUT # 11.2 x10^3/uL (1.8-7.7); NEUT % 77 % (31-73); PLATELET COUNT 263 x10^3/uL (140-400); RED BLOOD COUNT 4.24 x10^6/uL (3.50-5.40); WHITE BLOOD COUNT 14.5 x10^3/uL (4.0-11.0)
[2020-11-16 04:38] LABS: CALCIUM 8.6 mg/dL (8.5-10.1); CREATININE 0.9 mg/dL (0.6-1.0); GFR 67.4; MAGNESIUM 2.5 mg/dL (1.8-2.4); POTASSIUM 3.7 mmol/L (3.5-5.1)
[2020-11-16 07:00] VITALS: BP 116/80
--- NOTE | 2020-11-16 08:28 | PDOC ---
PULMONARY PROGRESS NOTES DATE: 11/16/20 TIME: 08:28 Subjective Patient had a paroxysmal coughing spell this morning, now feels better, currently on 40 L 100% Vitals Vital Signs Date Time Temp Pulse Resp B/P (MAP) Pulse Ox O2 Delivery O2 Flow Rate FiO2 11/16/20 07:16 95 VAPOTHERM 40.0 11/16/20 03:31 97.9 87 22 147/96 (113) 97.9 Comments On visual inspection, patient appears to be less short of breath than yesterday, Patient seen during the pandemic no significant respiratory distress no paroxysmal breathing pattern no new rash Labs Laboratory Tests Test 11/15/20 03:50 11/15/20 03:55 11/16/20 04:00 Sodium Level 139 mmol/L (136-145) 139 mmol/L (136-145) Potassium Level 3.2 mmol/L (3.5-5.1) 3.7 mmol/L (3.5-5.1) Chloride Level 101 mmol/L (98-107) 103 mmol/L (98-107) Carbon Dioxide Level 27 mmol/L (21-32) 28 mmol/L (21-32) Anion Gap 11 (6-14) 8 (6-14) Blood Urea Nitrogen 12 mg/dL (7-20) 13 mg/dL (7-20) Creatinine 0.9 mg/dL (0.6-1.0) 0.9 mg/dL (0.6-1.0) Estimated GFR (Cockcroft-Gault) 67.4 67.4 Glucose Level 145 mg/dL (70-99) 144 mg/dL (70-99) Calcium Level 8.8 mg/dL (8.5-10.1) 8.6 mg/dL (8.5-10.1) Magnesium Level 2.4 mg/dL (1.8-2.4) 2.5 mg/dL (1.8-2.4) White Blood Count 12.3 x10^3/uL (4.0-11.0) 14.5 x10^3/uL (4.0-11.0) Red Blood Count 4.30 x10^6/uL (3.50-5.40) 4.24 x10^6/uL (3.50-5.40) Hemoglobin 13.5 g/dL (12.0-15.5) 13.4 g/dL (12.0-15.5) Hematocrit 38.9 % (36.0-47.0) 38.5 % (36.0-47.0) Mean Corpuscular Volume 90 fL (79-100) 91 fL (79-100) Mean Corpuscular Hemoglobin 31 pg (25-35) 32 pg (25-35) Mean Corpuscular Hemoglobin Concent 35 g/dL (31-37) 35 g/dL (31-37) Red Cell Distribution Width 13.9 % (11.5-14.5) 14.0 % (11.5-14.5) Platelet Count 230 x10^3/uL (140-400) 263 x10^3/uL (140-400) Neutrophils (%) (Auto) 74 % (31-73) 77 % (31-73) Lymphocytes (%) (Auto) 15 % (24-48) 12 % (24-48) Monocytes (%) (Auto) 11 % (0-9) 11 % (0-9) Eosinophils (%) (Auto) 0 % (0-3) 0 % (0-3) Basophils (%) (Auto) 0 % (0-3) 0 % (0-3) Neutrophils # (Auto) 9.2 x10^3/uL (1.8-7.7) 11.2 x10^3/uL (1.8-7.7) Lymphocytes # (Auto) 1.8 x10^3/uL (1.0-4.8) 1.8 x10^3/uL (1.0-4.8) Monocytes # (Auto) 1.3 x10^3/uL (0.0-1.1) 1.6 x10^3/uL (0.0-1.1) Eosinophils # (Auto) 0.0 x10^3/uL (0.0-0.7) 0.0 x10^3/uL (0.0-0.7) Basophils # (Auto) 0.0 x10^3/uL (0.0-0.2) 0.0 x10^3/uL (0.0-0.2) Laboratory Tests Test 9/23/21 04:00 White Blood Count 14.5 x10^3/uL (4.0-11.0) Red Blood Count 4.24 x10^6/uL (3.50-5.40) Hemoglobin 13.4 g/dL (12.0-15.5) Hematocrit 38.5 % (36.0-47.0) Mean Corpuscular Volume 91 fL (79-100) Mean Corpuscular Hemoglobin 32 pg (25-35) Mean Corpuscular Hemoglobin Concent 35 g/dL (31-37) Red Cell Distribution Width 14.0 % (11.5-14.5) Platelet Count 263 x10^3/uL (140-400) Neutrophils (%) (Auto) 77 % (31-73) Lymphocytes (%) (Auto) 12 % (24-48) Monocytes (%) (Auto) 11 % (0-9) Eosinophils (%) (Auto) 0 % (0-3) Basophils (%) (Auto) 0 % (0-3) Neutrophils # (Auto) 11.2 x10^3/uL (1.8-7.7) Lymphocytes # (Auto) 1.8 x10^3/uL (1.0-4.8) Monocytes # (Auto) 1.6 x10^3/uL (0.0-1.1) Eosinophils # (Auto) 0.0 x10^3/uL (0.0-0.7) Basophils # (Auto) 0.0 x10^3/uL (0.0-0.2) Sodium Level 139 mmol/L (136-145) Potassium Level 3.7 mmol/L (3.5-5.1) Chloride Level 103 mmol/L (98-107) Carbon Dioxide Level 28 mmol/L (21-32) Anion Gap 8 (6-14) Blood Urea Nitrogen 13 mg/dL (7-20) Creatinine 0.9 mg/dL (0.6-1.0) Estimated GFR (Cockcroft-Gault) 67.4 Glucose Level 144 mg/dL (70-99) Calcium Level 8.6 mg/dL (8.5-10.1) Magnesium Level 2.5 mg/dL (1.8-2.4) Medications Active Scripts Medications Dose Route/Sig Max Daily Dose Days Date Category No Known Medications Prior To Admisstion (Info) Each 1 Each 1X 11/13/20 Reported Impression . IMPRESSION: 1. Acute hypoxemic respiratory failure. 2. COVID-19 viral pneumonia. 3. Abnormal x-ray. 4. Possible bacterial pneumonia. 5. Lymphopenia. 6. Elevated transaminases. Plan . Updated 11/16 Continue current oxygen supplementation Remdesivir Steroids Status tocilizumab DVT GI prophylaxis Discussed with RN and RT Updated 11/15 Continue remdesivir Continue steroids Received tocilizumab DVT GI prophylaxis No need to transfer to the intensive care unit at this time PLAN: 1. We will continue supplementation with oxygen. 2. Continue remdesivir, steroids. 3. Administered tocilizumab. 4. DVT and GI prophylaxis. 5. May need Vapotherm. 6. Hopefully, she does not progress to needing ICU care. JUNAID PISANO MD Nov 16, 2020 08:28
[2020-11-16] MEDS: ZINC SULFATE 220 MG CAPSULE. PO SCH (10:06)
[2020-11-16] MEDS: methylPREDNISolone SOD SUCC PF 40 MG/ML VIAL. IV SCH ×3 (10:06→22:00)
[2020-11-16] MEDS: ASCORBIC ACID 1,000 MG TABLET PO SCH ×3 (10:07→22:59)
[2020-11-16] MEDS: THIAMINE 100 MG TABLET. PO SCH (10:07)
[2020-11-16] MEDS: BENZONATATE 100 MG CAPSULE. PO PRN (10:07)
[2020-11-16] MEDS: ASPIRIN CHEWABLE 81 MG TABLET. PO SCH (10:07)
[2020-11-16] MEDS: MULTIVITAMIN with MINERAL TABLET. PO SCH (10:07)
[2020-11-16] MEDS: PANTOPRAZOLE 40 MG TABLET.DR. PO SCH (10:07)
[2020-11-16] MEDS: LOPERAMIDE 2 MG/15 ML ORAL SUSP. PO PRN (10:07)
[2020-11-16] MEDS: FLUTICASONE 50MCG/NASAL SPRAY 16GM BOTTLE. NS SCH (10:08)
[2020-11-16 11:00] VITALS: BP 140/97
--- NOTE | 2020-11-16 12:07 | PDOC ---
[facility] PROGRESS NOTE Date of Service DOS: DATE: 11/16/20 TIME: 12:02 Chief Complaint Chief Complaint Acute hypoxic respiratory failure COVID-19 pneumonia Elevated creatinine concerning for rhabdomyolysis versus myopathy Lymphopenia Transaminitis Hypokalemia Moderate protein malnutrition History of Present Illness History of Present Illness 11/16/2020: Pt seen and examined. Discussed with RN. Chart reviewed. On vapotherm 40L 100% FiO2. 11/15/2020: Pt seen and examined. Discussed with RN. Chart reviewed. On Vapotherm 40L 100% FiO2. 11/14/2020: Pt seen and examined. Discussed with RN. Chart reviewed. On 4 L O2 per NC. Vitals/I&O Vitals/I&O: Vital Signs Date Time Temp Pulse Resp B/P (MAP) Pulse Ox O2 Delivery O2 Flow Rate FiO2 11/16/20 11:21 94 VAPOTHERM 40.0 11/16/20 11:00 98.0 94 22 140/97 (111) 98.0 I & O 11/15/20 11/15/20 11/16/20 15:00 23:00 07:00 Intake Total 580 ml 810 ml 1100 ml Output Total 1700 ml 750 ml 1525 ml Balance -1120 ml 60 ml -425 ml Physical Exam General: Alert Labs Labs: Laboratory Tests Test 11/16/20 04:00 White Blood Count 14.5 x10^3/uL (4.0-11.0) Red Blood Count 4.24 x10^6/uL (3.50-5.40) Hemoglobin 13.4 g/dL (12.0-15.5) Hematocrit 38.5 % (36.0-47.0) Mean Corpuscular Volume 91 fL (79-100) Mean Corpuscular Hemoglobin 32 pg (25-35) Mean Corpuscular Hemoglobin Concent 35 g/dL (31-37) Red Cell Distribution Width 14.0 % (11.5-14.5) Platelet Count 263 x10^3/uL (140-400) Neutrophils (%) (Auto) 77 % (31-73) Lymphocytes (%) (Auto) 12 % (24-48) Monocytes (%) (Auto) 11 % (0-9) Eosinophils (%) (Auto) 0 % (0-3) Basophils (%) (Auto) 0 % (0-3) Neutrophils # (Auto) 11.2 x10^3/uL (1.8-7.7) Lymphocytes # (Auto) 1.8 x10^3/uL (1.0-4.8) Monocytes # (Auto) 1.6 x10^3/uL (0.0-1.1) Eosinophils # (Auto) 0.0 x10^3/uL (0.0-0.7) Basophils # (Auto) 0.0 x10^3/uL (0.0-0.2) Sodium Level 139 mmol/L (136-145) Potassium Level 3.7 mmol/L (3.5-5.1) Chloride Level 103 mmol/L (98-107) Carbon Dioxide Level 28 mmol/L (21-32) Anion Gap 8 (6-14) Blood Urea Nitrogen 13 mg/dL (7-20) Creatinine 0.9 mg/dL (0.6-1.0) Estimated GFR (Cockcroft-Gault) 67.4 Glucose Level 144 mg/dL (70-99) Calcium Level 8.6 mg/dL (8.5-10.1) Magnesium Level 2.5 mg/dL (1.8-2.4) Assessment and Plan Assessmemt and Plan Problems Medical Problems: (1) Community acquired pneumonia Status: Acute (2) Hypokalemia Status: Acute (3) Hypoxia Status: Acute (4) Lab test positive for detection of COVID-19 virus Status: Acute Acute hypoxic respiratory failure COVID-19 pneumonia Elevated creatinine concerning for rhabdomyolysis versus myopathy Lymphopenia Transaminitis Hypokalemia Moderate protein malnutrition Plan: Order Ativan 1mg q6h Give zosyn Give doxycycline COVID protocol (Remdesivir, Multivitamin with minerals, ASA, Solu-medrol, Robitussin with codeine, zosyn, doxycycline) DVT prophylaxis Trend labs Full code Comment Review of Relevant I have reviewed the following items lenny (where applicable) has been applied. Medications: Current Medications Medications (Trade) Dose Ordered Sig/Mona Route PRN Reason Start Time Stop Time Status Last Admin Dose Admin Calcium Carbonate/ Glycine (Tums) 500 mg PRN Q4HRS PRN PO INDIGESTION 11/15/20 17:00 11/15/20 17:03 Justifications for Admission Other Justification COVID-19 positive test (U07.1, COVID-19) with Acute Pneumonia (J12.89, Other viral pneumonia) (If respiratory failure or sepsis present, add as separate assessment) SMITHA CLEVELAND III DO Nov 16, 2020 12:07
[2020-11-16] MEDS: PIPERACILLIN/TAZOBACTAM 3.375 GM in IV NORMAL SALINE 50ML 50 ML IV SCH ×2 (13:04→17:28)
--- NOTE | 2020-11-16 13:22 | NUR ---
SS following up with discharge planning. SS reviewed pt chart and discussed with pt RN. Pt is currently requiring Non-Rebreather and Vapotherm at 100%. COVID19 positive. Pt on IV Remdesivir, IV Zosyn, IV Doxycycline, and IV Solu-Medrol. Not stable. Self pay. Med Assist following. SS will continue to follow for discharge planning.
[2020-11-16] MEDS: DOXYCYCLINE HYCLATE 100 MG in IV DEXTROSE 5% 100ML 100 ML IV SCH ×2 (14:40→21:00)
[2020-11-16 15:00] VITALS: BP 134/89
[2020-11-16 19:57] VITALS: BP 144/101
[2020-11-16] MEDS: REMDESIVIR 100mg in NORMAL SALINE 250ML X 4 DAYS IV SCH (21:00)
[2020-11-16 22:46] VITALS: BP 121/88
[2020-11-16] MEDS: ENOXAPARIN 40 MG/0.4 ML SYRINGE. SQ SCH (22:59)
[2020-11-17 03:57] VITALS: BP 135/88
[2020-11-17] MEDS: methylPREDNISolone SOD SUCC PF 40 MG/ML VIAL. IV SCH ×3 (06:00→21:59)
[2020-11-17] MEDS: PIPERACILLIN/TAZOBACTAM 3.375 GM in IV NORMAL SALINE 50ML 50 ML IV SCH ×4 (06:00→17:26)
[2020-11-17 07:00] VITALS: BP 142/87
--- NOTE | 2020-11-17 08:51 | PDOC ---
PULMONARY PROGRESS NOTES DATE: 11/17/20 TIME: 08:51 Subjective No new symptoms requiring 100% sent FiO2 and 40 L flow Vitals Vital Signs Date Time Temp Pulse Resp B/P (MAP) Pulse Ox O2 Delivery O2 Flow Rate FiO2 11/17/20 08:07 97 VAPOTHERM 40.0 11/17/20 07:00 98.0 75 20 142/87 (105) 98.0 Comments On visual inspection, patient appears to be less short of breath than yesterday, Patient seen during the COVID- pandemic no significant respiratory distress no paroxysmal breathing pattern no new rash Labs Laboratory Tests Test 11/16/20 04:00 White Blood Count 14.5 x10^3/uL (4.0-11.0) Red Blood Count 4.24 x10^6/uL (3.50-5.40) Hemoglobin 13.4 g/dL (12.0-15.5) Hematocrit 38.5 % (36.0-47.0) Mean Corpuscular Volume 91 fL (79-100) Mean Corpuscular Hemoglobin 32 pg (25-35) Mean Corpuscular Hemoglobin Concent 35 g/dL (31-37) Red Cell Distribution Width 14.0 % (11.5-14.5) Platelet Count 263 x10^3/uL (140-400) Neutrophils (%) (Auto) 77 % (31-73) Lymphocytes (%) (Auto) 12 % (24-48) Monocytes (%) (Auto) 11 % (0-9) Eosinophils (%) (Auto) 0 % (0-3) Basophils (%) (Auto) 0 % (0-3) Neutrophils # (Auto) 11.2 x10^3/uL (1.8-7.7) Lymphocytes # (Auto) 1.8 x10^3/uL (1.0-4.8) Monocytes # (Auto) 1.6 x10^3/uL (0.0-1.1) Eosinophils # (Auto) 0.0 x10^3/uL (0.0-0.7) Basophils # (Auto) 0.0 x10^3/uL (0.0-0.2) Sodium Level 139 mmol/L (136-145) Potassium Level 3.7 mmol/L (3.5-5.1) Chloride Level 103 mmol/L (98-107) Carbon Dioxide Level 28 mmol/L (21-32) Anion Gap 8 (6-14) Blood Urea Nitrogen 13 mg/dL (7-20) Creatinine 0.9 mg/dL (0.6-1.0) Estimated GFR (Cockcroft-Gault) 67.4 Glucose Level 144 mg/dL (70-99) Calcium Level 8.6 mg/dL (8.5-10.1) Magnesium Level 2.5 mg/dL (1.8-2.4) Medications Active Scripts Medications Dose Route/Sig Max Daily Dose Days Date Category No Known Medications Prior To Admisstion (Info) Each 1 Each 1X 11/13/20 Reported Impression . IMPRESSION: 1. Acute hypoxemic respiratory failure. 2. COVID-19 viral pneumonia. 3. Abnormal x-ray. 4. Possible bacterial pneumonia. 5. Lymphopenia. 6. Elevated transaminases. Plan . Updated 11/17 About the same as yesterday we will continue current oxygen supplementation continue steroids updated 11/16 Continue current oxygen supplementation Remdesivir Steroids Status tocilizumab DVT GI prophylaxis Discussed with RN and RT Updated 11/15 Continue remdesivir Continue steroids Received tocilizumab DVT GI prophylaxis No need to transfer to the intensive care unit at this time JUNAID PISANO MD Nov 17, 2020 08:51
[2020-11-17] MEDS: MULTIVITAMIN with MINERAL TABLET. PO SCH (09:11)
[2020-11-17] MEDS: PANTOPRAZOLE 40 MG TABLET.DR. PO SCH (09:11)
[2020-11-17] MEDS: THIAMINE 100 MG TABLET. PO SCH (09:11)
[2020-11-17] MEDS: ZINC SULFATE 220 MG CAPSULE. PO SCH (09:11)
[2020-11-17] MEDS: ASCORBIC ACID 1,000 MG TABLET PO SCH ×3 (09:11→21:57)
[2020-11-17] MEDS: ASPIRIN CHEWABLE 81 MG TABLET. PO SCH (09:11)
[2020-11-17] MEDS: DOXYCYCLINE HYCLATE 100 MG in IV DEXTROSE 5% 100ML 100 ML IV SCH ×2 (09:12→21:57)
[2020-11-17] MEDS: guaiFENesin DM 200MG/20MG 10 ML SYRUP PO PRN (09:29)
[2020-11-17] MEDS: FLUTICASONE 50MCG/NASAL SPRAY 16GM BOTTLE. NS SCH (09:30)
[2020-11-17] MEDS: STERILE WATER for RESP 1,000 ML BAG. INH PRN (09:31)
[2020-11-17 11:00] VITALS: BP 133/95
[2020-11-17] MEDS: DOCUSATE SODIUM 100 MG CAPSULE. PO PRN (11:04)
--- NOTE | 2020-11-17 12:58 | PDOC ---
[facility] PROGRESS NOTE Date of Service DOS: DATE: 11/17/20 TIME: 12:47 Chief Complaint Chief Complaint Acute hypoxic respiratory failure COVID-19 pneumonia Elevated creatinine concerning for rhabdomyolysis versus myopathy Lymphopenia Transaminitis Hypokalemia Moderate protein malnutrition History of Present Illness History of Present Illness 11/17/2020: Pt seen and examined. Chart reviewed. Discussed with RN. On Vapotherm 40L 100% FiO2. On 15L O2 per non-rebreather. Pt reports increased appetite, feeling better. 11/16/2020: Pt seen and examined. Discussed with RN. Chart reviewed. On Vapotherm 40L 100% FiO2. 11/15/2020: Pt seen and examined. Discussed with RN. Chart reviewed. On Vapotherm 40L 100% FiO2. 11/14/2020: Pt seen and examined. Discussed with RN. Chart reviewed. On 4 L O2 per NC. Vitals/I&O Vitals/I&O: Vital Signs Date Time Temp Pulse Resp B/P (MAP) Pulse Ox O2 Delivery O2 Flow Rate FiO2 11/17/20 12:26 96 VAPOTHERM 40.0 11/17/20 11:00 97.8 68 26 133/95 (108) 97.8 I & O 11/16/20 11/16/20 11/17/20 15:00 23:00 07:00 Intake Total 100 ml 240 ml Output Total 2050 ml 725 ml Balance -1950 ml -485 ml Physical Exam General: Alert Assessment and Plan Assessmemt and Plan Problems Medical Problems: (1) Community acquired pneumonia Status: Acute (2) Hypokalemia Status: Acute (3) Hypoxia Status: Acute (4) Lab test positive for detection of COVID-19 virus Status: Acute Acute hypoxic respiratory failure COVID-19 pneumonia Elevated creatinine concerning for rhabdomyolysis versus myopathy Lymphopenia Transaminitis Hypokalemia Moderate protein malnutrition Plan: COVID protocol (Redesivir, Multivitamin, ASA, Solu-medrol, Robitussin w/codeine, Zosyn, Doxycycline) Appreciate subspecialty input (Pulmonology) Encourage po intake Trend labs DVT prophylaxis Full code Comment Review of Relevant I have reviewed the following items lenny (where applicable) has been applied. Justifications for Admission Other Justification COVID-19 positive test (U07.1, COVID-19) with Acute Pneumonia (J12.89, Other viral pneumonia) (If respiratory failure or sepsis present, add as separate assessment) SMITHA CLEVELAND III DO Nov 17, 2020 12:58
[2020-11-17] MEDS: REMDESIVIR 100mg in NORMAL SALINE 250ML X 4 DAYS IV SCH (14:09)
[2020-11-17 15:00] VITALS: BP 134/88
[2020-11-17] MEDS: PROCHLORPERAZINE 10 MG/2 ML VIAL. IV PRN ×2 (15:28→21:59)
--- NOTE | 2020-11-17 16:18 | NUR ---
Allergies and reactions nkda INR none BUN 13 Cr 0.9 Platelets 263 Blood culture done 11-13-20 blood culture results no growth Order Verified yes Consent signed yes Previous PICC placement no Past Medical/Surgical history and current diagnosis reviewed yes Patient Medical /Surgical History Related to PICC line placement Infectious Disease consult Special considerations for PICC line placement Infections PICC placement indication Caustic medication class drug usage, termination clerk antibiotic usage Patricia Dee RN PICC Nurse Addendum: 11/17/20 at 1623 by PATRICIA DEE RN Amended: Links added.
--- NOTE | 2020-11-17 16:21 | NUR ---
Procedure: Following complete explanation of the PICC procedure including the indications, risks, and potential complications, informed consent was obtained. The possibility for infection was discussed along with signs, symptoms, and prevention. All the questions were answered.yes Written and verbal patient education was provided. yes Hand hygiene performed. yes Standardized central line checklist was utilized. yes The patient was placed in the supine position, the arm was prepped with chlorhexidine and patient draped with maximum sterile barrier. 2 mL 1% lidocaine was infiltrated into the skin to provide local anesthesia. A thorough assessment of right upper extremity completed. Using real-time ultrasound guidance and standardized micro puncture set, the Cephalic vein was punctured and a peel away sheath was placed using the modified Seldinger technique. A tip location device was used to ensure adequate catheter placement. The catheter was secured using a securement device and an antimicrobial patch was applied directly on the insertion site followed by a transparent dressing. All ports withdraw blood and flush without resistance. Patient tolerated the procedure without apparent complication(s). double Lumen Power PICC placement successful and uncomplicated. Placement verified by EKG tip confirmation system and/or chest x-ray. Tip located in the CAJ Complications:none Addendum: 11/17/20 at 1623 by JAVIER HAND RN Amended: Links added.
[2020-11-17 19:05] VITALS: BP 140/85
[2020-11-17] MEDS: SENNOSIDES 8.6 MG TABLET PO PRN (21:56)
[2020-11-17] MEDS: LACTOBACILLUS RHAMNOSUS GG 1 CAPSULE. PO SCH (21:56)
[2020-11-17] MEDS: ENOXAPARIN 40 MG/0.4 ML SYRINGE. SQ SCH (21:58)
[2020-11-17 22:55] VITALS: BP 124/80
[2020-11-18] MEDS: PIPERACILLIN/TAZOBACTAM 3.375 GM in IV NORMAL SALINE 50ML 50 ML IV SCH ×5 (00:41→23:23)
[2020-11-18 03:15] VITALS: BP 114/80
[2020-11-18] MEDS: methylPREDNISolone SOD SUCC PF 40 MG/ML VIAL. IV SCH ×3 (06:17→21:01)
[2020-11-18 06:58] VITALS: BP 124/77
[2020-11-18] MEDS: SODIUM CHLORIDE 0.65% NASAL SPRAY 45ML BOTTLE. NS PRN (08:22)
[2020-11-18] MEDS: OXYMETAZOLINE 0.05% NASAL SPRAY 30ML BOTTLE. NS PRN (08:22)
[2020-11-18] MEDS: FLUTICASONE 50MCG/NASAL SPRAY 16GM BOTTLE. NS SCH (08:23)
[2020-11-18] MEDS: ZINC SULFATE 220 MG CAPSULE. PO SCH (08:24)
[2020-11-18] MEDS: DOXYCYCLINE HYCLATE 100 MG in IV DEXTROSE 5% 100ML 100 ML IV SCH ×2 (08:24→20:24)
[2020-11-18] MEDS: ASPIRIN CHEWABLE 81 MG TABLET. PO SCH (08:24)
[2020-11-18] MEDS: LACTOBACILLUS RHAMNOSUS GG 1 CAPSULE. PO SCH ×2 (08:25→20:21)
[2020-11-18] MEDS: THIAMINE 100 MG TABLET. PO SCH (08:25)
[2020-11-18] MEDS: PANTOPRAZOLE 40 MG TABLET.DR. PO SCH (08:25)
[2020-11-18] MEDS: MULTIVITAMIN with MINERAL TABLET. PO SCH (08:25)
[2020-11-18] MEDS: ASCORBIC ACID 1,000 MG TABLET PO SCH ×3 (08:25→20:22)
--- NOTE | 2020-11-18 09:20 | PDOC ---
PULMONARY PROGRESS NOTES DATE: 11/18/20 TIME: 09:18 Subjective feels better on100% sent FiO2 and 40 L flow Vitals Vital Signs Date Time Temp Pulse Resp B/P (MAP) Pulse Ox O2 Delivery O2 Flow Rate FiO2 11/18/20 06:58 97.3 80 28 124/77 (93) 94 vapotherm and nrb 40.0 97.3 Comments On visual inspection, no distress nc at rrr no accessory muscle use no rash Medications Active Scripts Medications Dose Route/Sig Max Daily Dose Days Date Category No Known Medications Prior To Admisstion (Info) Each 1 Each 1X 11/13/20 Reported Impression . IMPRESSION: 1. Acute hypoxemic respiratory failure. 2. COVID-19 viral pneumonia. 3. Abnormal x-ray. 4. Possible bacterial pneumonia. 5. Lymphopenia. 6. Elevated transaminases. Plan . 11/18 02 titration to keep sat 90% Remdesivir Steroids tocilizumab DVT GI prophylaxis Updated 11/17 About the same as yesterday we will continue current oxygen supplementation continue steroids updated 11/16 Continue current oxygen supplementation Remdesivir Steroids Status tocilizumab DVT GI prophylaxis Discussed with RN and RT Updated 11/15 Continue remdesivir Continue steroids Received tocilizumab DVT GI prophylaxis No need to transfer to the intensive care unit at this time DEANNA SALAMANCA MD Nov 18, 2020 09:20
[2020-11-18 11:00] VITALS: BP 123/89
--- NOTE | 2020-11-18 11:27 | PDOC ---
[facility] [facility] PROGRESS NOTE Date of Service DOS: DATE: 11/18/20 TIME: 11:22 Chief Complaint Chief Complaint Acute hypoxic respiratory failure COVID-19 pneumonia Elevated creatinine concerning for rhabdomyolysis versus myopathy Lymphopenia Transaminitis Hypokalemia Moderate protein malnutrition History of Present Illness History of Present Illness 11/18/2020: Pt seen and examined. Discussed with RN. Chart reviewed. On Vapotherm 40L 100% FiO2. On 15L O2 per non-rebreather. Pt resting, NAD. Nurse reports pt was able to sit on edge of bed and eat breakfast without desaturation of O2. 11/17/2020: Pt seen and examined. Chart reviewed. Discussed with RN. On Vapotherm 40L 100% FiO2. On 15L O2 per non-rebreather. Pt reports increased appetite, feeling better. 11/16/2020: Pt seen and examined. Discussed with RN. Chart reviewed. On Vapotherm 40L 100% FiO2. 11/15/2020: Pt seen and examined. Discussed with RN. Chart reviewed. On Vapotherm 40L 100% FiO2. 11/14/2020: Pt seen and examined. Discussed with RN. Chart reviewed. On 4 L O2 per NC. Vitals/I&O Vitals/I&O: Vital Signs Date Time Temp Pulse Resp B/P (MAP) Pulse Ox O2 Delivery O2 Flow Rate FiO2 11/18/20 11:19 97 VAPOTHERM 40.0 11/18/20 06:58 97.3 80 28 124/77 (93) 97.3 I & O 11/17/20 11/17/20 11/18/20 15:00 23:00 07:00 Intake Total 490 ml 600 ml 60 ml Output Total 900 ml 1450 ml Balance 490 ml -300 ml -1390 ml Physical Exam General: Alert, No acute distress Assessment and Plan Assessmemt and Plan Problems Medical Problems: (1) Community acquired pneumonia Status: Acute (2) Hypokalemia Status: Acute (3) Hypoxia Status: Acute (4) Lab test positive for detection of COVID-19 virus Status: Acute Acute hypoxic respiratory failure COVID-19 pneumonia Elevated creatinine concerning for rhabdomyolysis versus myopathy Lymphopenia Transaminitis Hypokalemia Moderate protein malnutrition Plan: COVID protocol (Remdesivir, Solu-medrol, Robitussin with codeine, Zosyn, Doxycycline, Multivitamin with minerals, ASA) Order CBC Order BMP Encourage po intake Appreciate subspecialist input (Pulm) DVT prophylaxis Trend labs Full code Comment Review of Relevant I have reviewed the following items lenny (where applicable) has been applied. Medications: Current Medications Medications (Trade) Dose Ordered Sig/Mona Route PRN Reason Start Time Stop Time Status Last Admin Dose Admin Lactobacillus Rhamnosus (Culturelle) 1 cap BID PO 11/17/20 21:00 11/18/20 08:25 Justifications for Admission Other Justification COVID-19 positive test (U07.1, COVID-19) with Acute Pneumonia (J12.89, Other viral pneumonia) (If respiratory failure or sepsis present, add as separate assessment) SMITHA CLEVELAND III DO Nov 18, 2020 11:27
[2020-11-18] MEDS: REMDESIVIR 100mg in NORMAL SALINE 250ML X 4 DAYS IV SCH (13:48)
[2020-11-18 14:41] VITALS: BP 120/73
[2020-11-18 19:00] VITALS: BP 158/100
[2020-11-18] MEDS: ENOXAPARIN 40 MG/0.4 ML SYRINGE. SQ SCH (20:23)
[2020-11-18] MEDS: STERILE WATER for RESP 1,000 ML BAG. INH PRN (20:54)
[2020-11-18 23:02] VITALS: BP 148/87
[2020-11-19] MEDS: PROCHLORPERAZINE 10 MG/2 ML VIAL. IV PRN ×2 (00:14→21:42)
[2020-11-19 02:44] VITALS: BP 130/75
[2020-11-19] MEDS: methylPREDNISolone SOD SUCC PF 40 MG/ML VIAL. IV SCH ×3 (06:33→20:25)
[2020-11-19] MEDS: PIPERACILLIN/TAZOBACTAM 3.375 GM in IV NORMAL SALINE 50ML 50 ML IV SCH ×4 (06:33→23:55)
[2020-11-19 07:00] VITALS: BP 115/77
[2020-11-19 07:05] LABS: BASO % 0 % (0-3); EOS # 0.1 x10^3/uL (0.0-0.7); EOS % 1 % (0-3); HEMATOCRIT 41.5 % (36.0-47.0); LYMPH # 1.9 x10^3/uL (1.0-4.8); LYMPH % 10 % (24-48); MEAN CORPUSCULAR HEMOGLOBIN 31 pg (25-35); MEAN CORPUSCULAR HGB CONC 34 g/dL (31-37); MEAN CORPUSCULAR VOLUME 91 fL (79-100); MONO % 5 % (0-9); NEUT # 15.5 x10^3/uL (1.8-7.7); NEUT % 83 % (31-73); PLATELET COUNT 292 x10^3/uL (140-400); RED BLOOD COUNT 4.56 x10^6/uL (3.50-5.40); RED CELL DISTRIBUTION WIDTH 13.6 % (11.5-14.5); WHITE BLOOD COUNT 18.6 x10^3/uL (4.0-11.0)
[2020-11-19 07:11] LABS: CALCIUM 8.5 mg/dL (8.5-10.1); CREATININE 0.9 mg/dL (0.6-1.0); GFR 67.4; POTASSIUM 3.9 mmol/L (3.5-5.1)
[2020-11-19 07:49] LABS: % BANDS 2 % (0-9); % LYMPHS 8 % (24-48); % MONOS 2 % (0-10); % SEGS 88 % (35-66); PLT ESTIMATE ADEQUATE (ADEQUATE)
[2020-11-19] MEDS: THIAMINE 100 MG TABLET. PO SCH (08:44)
[2020-11-19] MEDS: MULTIVITAMIN with MINERAL TABLET. PO SCH (08:44)
[2020-11-19] MEDS: LACTOBACILLUS RHAMNOSUS GG 1 CAPSULE. PO SCH ×2 (08:44→20:25)
[2020-11-19] MEDS: ZINC SULFATE 220 MG CAPSULE. PO SCH (08:44)
[2020-11-19] MEDS: PANTOPRAZOLE 40 MG TABLET.DR. PO SCH (08:44)
[2020-11-19] MEDS: DOXYCYCLINE HYCLATE 100 MG in IV DEXTROSE 5% 100ML 100 ML IV SCH ×2 (08:44→20:24)
[2020-11-19] MEDS: ASPIRIN CHEWABLE 81 MG TABLET. PO SCH (08:44)
[2020-11-19] MEDS: FLUTICASONE 50MCG/NASAL SPRAY 16GM BOTTLE. NS SCH (08:45)
[2020-11-19] MEDS: ASCORBIC ACID 1,000 MG TABLET PO SCH ×3 (08:45→20:25)
--- NOTE | 2020-11-19 09:30 | PDOC ---
PULMONARY PROGRESS NOTES DATE: 11/19/20 TIME: 09:29 Subjective feels better sob better on100% sent FiO2 and 40 L flow Vitals Vital Signs Date Time Temp Pulse Resp B/P (MAP) Pulse Ox O2 Delivery O2 Flow Rate FiO2 11/19/20 07:00 98.4 93 24 115/77 (90) 97 Vapotherm 40.0 98.4 Comments On visual inspection, no distress nc at rrr no accessory muscle use no rash Labs Laboratory Tests Test 11/19/20 06:30 White Blood Count 18.6 x10^3/uL (4.0-11.0) Red Blood Count 4.56 x10^6/uL (3.50-5.40) Hemoglobin 14.0 g/dL (12.0-15.5) Hematocrit 41.5 % (36.0-47.0) Mean Corpuscular Volume 91 fL (79-100) Mean Corpuscular Hemoglobin 31 pg (25-35) Mean Corpuscular Hemoglobin Concent 34 g/dL (31-37) Red Cell Distribution Width 13.6 % (11.5-14.5) Platelet Count 292 x10^3/uL (140-400) Neutrophils (%) (Auto) 83 % (31-73) Lymphocytes (%) (Auto) 10 % (24-48) Monocytes (%) (Auto) 5 % (0-9) Eosinophils (%) (Auto) 1 % (0-3) Basophils (%) (Auto) 0 % (0-3) Neutrophils # (Auto) 15.5 x10^3/uL (1.8-7.7) Lymphocytes # (Auto) 1.9 x10^3/uL (1.0-4.8) Monocytes # (Auto) 1.0 x10^3/uL (0.0-1.1) Eosinophils # (Auto) 0.1 x10^3/uL (0.0-0.7) Basophils # (Auto) 0.0 x10^3/uL (0.0-0.2) Segmented Neutrophils % 88 % (35-66) Band Neutrophils % 2 % (0-9) Lymphocytes % 8 % (24-48) Monocytes % 2 % (0-10) Platelet Estimate Adequate (ADEQUATE) Sodium Level 138 mmol/L (136-145) Potassium Level 3.9 mmol/L (3.5-5.1) Chloride Level 102 mmol/L (98-107) Carbon Dioxide Level 27 mmol/L (21-32) Anion Gap 9 (6-14) Blood Urea Nitrogen 19 mg/dL (7-20) Creatinine 0.9 mg/dL (0.6-1.0) Estimated GFR (Cockcroft-Gault) 67.4 Glucose Level 108 mg/dL (70-99) Calcium Level 8.5 mg/dL (8.5-10.1) Laboratory Tests Test 11/19/20 06:30 White Blood Count 18.6 x10^3/uL (4.0-11.0) Red Blood Count 4.56 x10^6/uL (3.50-5.40) Hemoglobin 14.0 g/dL (12.0-15.5) Hematocrit 41.5 % (36.0-47.0) Mean Corpuscular Volume 91 fL (79-100) Mean Corpuscular Hemoglobin 31 pg (25-35) Mean Corpuscular Hemoglobin Concent 34 g/dL (31-37) Red Cell Distribution Width 13.6 % (11.5-14.5) Platelet Count 292 x10^3/uL (140-400) Neutrophils (%) (Auto) 83 % (31-73) Lymphocytes (%) (Auto) 10 % (24-48) Monocytes (%) (Auto) 5 % (0-9) Eosinophils (%) (Auto) 1 % (0-3) Basophils (%) (Auto) 0 % (0-3) Neutrophils # (Auto) 15.5 x10^3/uL (1.8-7.7) Lymphocytes # (Auto) 1.9 x10^3/uL (1.0-4.8) Monocytes # (Auto) 1.0 x10^3/uL (0.0-1.1) Eosinophils # (Auto) 0.1 x10^3/uL (0.0-0.7) Basophils # (Auto) 0.0 x10^3/uL (0.0-0.2) Segmented Neutrophils % 88 % (35-66) Band Neutrophils % 2 % (0-9) Lymphocytes % 8 % (24-48) Monocytes % 2 % (0-10) Platelet Estimate Adequate (ADEQUATE) Sodium Level 138 mmol/L (136-145) Potassium Level 3.9 mmol/L (3.5-5.1) Chloride Level 102 mmol/L (98-107) Carbon Dioxide Level 27 mmol/L (21-32) Anion Gap 9 (6-14) Blood Urea Nitrogen 19 mg/dL (7-20) Creatinine 0.9 mg/dL (0.6-1.0) Estimated GFR (Cockcroft-Gault) 67.4 Glucose Level 108 mg/dL (70-99) Calcium Level 8.5 mg/dL (8.5-10.1) Medications Active Scripts Medications Dose Route/Sig Max Daily Dose Days Date Category No Known Medications Prior To Admisstion (Info) Each 1 Each 1X 11/13/20 Reported Impression . IMPRESSION: 1. Acute hypoxemic respiratory failure. 2. COVID-19 viral pneumonia. 3. Abnormal x-ray. 4. Possible bacterial pneumonia. 5. Lymphopenia. 6. Elevated transaminases. Plan . 11/19 start IS proning as tolerated 02 titration to keep sat 90% Remdesivir Steroids tocilizumab DVT GI prophylaxis discussed w rt 11/18 02 titration to keep sat 90% Remdesivir Steroids tocilizumab DVT GI prophylaxis Updated 11/17 About the same as yesterday we will continue current oxygen supplementation continue steroids updated 11/16 Continue current oxygen supplementation Remdesivir Steroids Status tocilizumab DVT GI prophylaxis Discussed with RN and RT Updated 11/15 Continue remdesivir Continue steroids Received tocilizumab DVT GI prophylaxis No need to transfer to the intensive care unit at this time DEANNA SALAMANCA MD Nov 19, 2020 09:30
[2020-11-19 10:40] VITALS: BP 123/78
--- NOTE | 2020-11-19 11:57 | PDOC ---
[facility] [facility] PROGRESS NOTE Date of Service DOS: DATE: 11/19/20 TIME: 11:50 Chief Complaint Chief Complaint Acute hypoxic respiratory failure COVID-19 pneumonia Elevated creatinine concerning for rhabdomyolysis versus myopathy Lymphopenia Transaminitis Hypokalemia Moderate protein malnutrition History of Present Illness History of Present Illness 11/19/2020: Pt seen and examined. Discussed with RN. Chart reviewed. On Vapotherm 40L 100% FiO2. On 15L O2 per non-rebreather. O2 saturation at 98%. Pt up in chair and reports feeling better today. 11/18/2020: Pt seen and examined. Discussed with RN. Chart reviewed. On Vapotherm 40L 100% FiO2. On 15L O2 per non-rebreather. Pt resting, NAD. Nurse reports pt was able to sit on edge of bed and eat breakfast without desaturation of O2. 11/17/2020: Pt seen and examined. Chart reviewed. Discussed with RN. On Vapotherm 40L 100% FiO2. On 15L O2 per non-rebreather. Pt reports increased appetite, feeling better. 11/16/2020: Pt seen and examined. Discussed with RN. Chart reviewed. On Vapotherm 40L 100% FiO2. 11/15/2020: Pt seen and examined. Discussed with RN. Chart reviewed. On Vapotherm 40L 100% FiO2. 11/14/2020: Pt seen and examined. Discussed with RN. Chart reviewed. On 4 L O2 per NC. Vitals/I&O Vitals/I&O: Vital Signs Date Time Temp Pulse Resp B/P (MAP) Pulse Ox O2 Delivery O2 Flow Rate FiO2 11/19/20 10:40 98.8 91 24 123/78 (93) 96 Vapotherm 40.0 98.8 I & O 11/18/20 11/18/20 11/19/20 15:00 23:00 07:00 Intake Total 300 ml 390 ml 150 ml Output Total 500 ml 900 ml Balance -200 ml 390 ml -750 ml Physical Exam General: Alert, Cooperative, No acute distress Labs Labs: Laboratory Tests Test 11/19/20 06:30 White Blood Count 18.6 x10^3/uL (4.0-11.0) Red Blood Count 4.56 x10^6/uL (3.50-5.40) Hemoglobin 14.0 g/dL (12.0-15.5) Hematocrit 41.5 % (36.0-47.0) Mean Corpuscular Volume 91 fL (79-100) Mean Corpuscular Hemoglobin 31 pg (25-35) Mean Corpuscular Hemoglobin Concent 34 g/dL (31-37) Red Cell Distribution Width 13.6 % (11.5-14.5) Platelet Count 292 x10^3/uL (140-400) Neutrophils (%) (Auto) 83 % (31-73) Lymphocytes (%) (Auto) 10 % (24-48) Monocytes (%) (Auto) 5 % (0-9) Eosinophils (%) (Auto) 1 % (0-3) Basophils (%) (Auto) 0 % (0-3) Neutrophils # (Auto) 15.5 x10^3/uL (1.8-7.7) Lymphocytes # (Auto) 1.9 x10^3/uL (1.0-4.8) Monocytes # (Auto) 1.0 x10^3/uL (0.0-1.1) Eosinophils # (Auto) 0.1 x10^3/uL (0.0-0.7) Basophils # (Auto) 0.0 x10^3/uL (0.0-0.2) Segmented Neutrophils % 88 % (35-66) Band Neutrophils % 2 % (0-9) Lymphocytes % 8 % (24-48) Monocytes % 2 % (0-10) Platelet Estimate Adequate (ADEQUATE) Sodium Level 138 mmol/L (136-145) Potassium Level 3.9 mmol/L (3.5-5.1) Chloride Level 102 mmol/L (98-107) Carbon Dioxide Level 27 mmol/L (21-32) Anion Gap 9 (6-14) Blood Urea Nitrogen 19 mg/dL (7-20) Creatinine 0.9 mg/dL (0.6-1.0) Estimated GFR (Cockcroft-Gault) 67.4 Glucose Level 108 mg/dL (70-99) Calcium Level 8.5 mg/dL (8.5-10.1) Assessment and Plan Assessmemt and Plan Problems Medical Problems: (1) Community acquired pneumonia Status: Acute (2) Hypokalemia Status: Acute (3) Hypoxia Status: Acute (4) Lab test positive for detection of COVID-19 virus Status: Acute Acute hypoxic respiratory failure COVID-19 pneumonia Elevated creatinine concerning for rhabdomyolysis versus myopathy Lymphopenia Transaminitis Hypokalemia Moderate protein malnutrition Plan: COVID protocol (Zosyn, Doxycycline, Multivitamin w/minerals, ASA, Solu-medrol, Robitussin w/codeine) Trying to wean down her O2 requirements Encourage po intake Appreciate subspecialty input (Pulm) Cardiac monitoring DVT prophylaxis Trend labs Full code Prognosis guarded Comment Review of Relevant I have reviewed the following items lenny (where applicable) has been applied. Justifications for Admission Other Justification COVID-19 positive test (U07.1, COVID-19) with Acute Pneumonia (J12.89, Other viral pneumonia) (If respiratory failure or sepsis present, add as separate assessment) SMITHA CLEVELAND III DO Nov 19, 2020 11:57
[2020-11-19] MEDS: ACETAMINOPHEN 325 MG TABLET. PO PRN (14:42)
[2020-11-19 15:00] VITALS: BP 129/74
[2020-11-19 19:45] VITALS: BP 133/83
[2020-11-19] MEDS: ENOXAPARIN 40 MG/0.4 ML SYRINGE. SQ SCH (20:25)
[2020-11-19 23:00] VITALS: BP 135/90
[2020-11-20 03:50] VITALS: BP 118/83
[2020-11-20] MEDS: PANTOPRAZOLE 40 MG TABLET.DR. PO SCH (05:15)
[2020-11-20] MEDS: methylPREDNISolone SOD SUCC PF 40 MG/ML VIAL. IV SCH ×3 (05:15→21:03)
[2020-11-20] MEDS: PIPERACILLIN/TAZOBACTAM 3.375 GM in IV NORMAL SALINE 50ML 50 ML IV SCH ×3 (05:16→18:39)
[2020-11-20 05:46] LABS: BASO # 0.1 x10^3/uL (0.0-0.2); BASO % 0 % (0-3); EOS # 0.3 x10^3/uL (0.0-0.7); EOS % 1 % (0-3); HEMATOCRIT 44.8 % (36.0-47.0); HEMOGLOBIN 15.1 g/dL (12.0-15.5); LYMPH # 1.9 x10^3/uL (1.0-4.8); LYMPH % 8 % (24-48); MEAN CORPUSCULAR HEMOGLOBIN 31 pg (25-35); MEAN CORPUSCULAR HGB CONC 34 g/dL (31-37); MEAN CORPUSCULAR VOLUME 91 fL (79-100); MONO # 1.5 x10^3/uL (0.0-1.1); MONO % 7 % (0-9); NEUT # 19.7 x10^3/uL (1.8-7.7); NEUT % 84 % (31-73); PLATELET COUNT 323 x10^3/uL (140-400); RED BLOOD COUNT 4.93 x10^6/uL (3.50-5.40); RED CELL DISTRIBUTION WIDTH 13.8 % (11.5-14.5); WHITE BLOOD COUNT 23.4 x10^3/uL (4.0-11.0)
[2020-11-20 06:03] LABS: CALCIUM 8.8 mg/dL (8.5-10.1); CREATININE 0.9 mg/dL (0.6-1.0); GFR 67.4; POTASSIUM 4.1 mmol/L (3.5-5.1)
[2020-11-20 06:28] LABS: BASE EXCESS ABG -1 mmol/L (-3-3); HCO3 ABG 22 mmol/L (21-28); PCO2 ABG 32 mmHg (35-46); PO2 ABG 67 mmHg (75-108); SAT O2 ABG 94 % (92-99)
[2020-11-20 06:30] LABS: FIO2 ABG 100
[2020-11-20 07:00] VITALS: BP 119/71
--- NOTE | 2020-11-20 08:38 | PDOC ---
PULMONARY PROGRESS NOTES DATE: 11/20/20 TIME: 08:36 Subjective Same 100% FiO2 40 L feels about the same Vitals Vital Signs Date Time Temp Pulse Resp B/P (MAP) Pulse Ox O2 Delivery O2 Flow Rate FiO2 11/20/20 07:51 94 VAPOTHERM 40.0 11/20/20 03:50 98.5 98 28 118/83 (95) 98.5 Comments On visual inspection, no distress nc at rrr no accessory muscle use no rash Labs Laboratory Tests Test 11/19/20 06:30 11/20/20 05:20 11/20/20 06:07 White Blood Count 18.6 x10^3/uL (4.0-11.0) 23.4 x10^3/uL (4.0-11.0) Red Blood Count 4.56 x10^6/uL (3.50-5.40) 4.93 x10^6/uL (3.50-5.40) Hemoglobin 14.0 g/dL (12.0-15.5) 15.1 g/dL (12.0-15.5) Hematocrit 41.5 % (36.0-47.0) 44.8 % (36.0-47.0) Mean Corpuscular Volume 91 fL (79-100) 91 fL (79-100) Mean Corpuscular Hemoglobin 31 pg (25-35) 31 pg (25-35) Mean Corpuscular Hemoglobin Concent 34 g/dL (31-37) 34 g/dL (31-37) Red Cell Distribution Width 13.6 % (11.5-14.5) 13.8 % (11.5-14.5) Platelet Count 292 x10^3/uL (140-400) 323 x10^3/uL (140-400) Neutrophils (%) (Auto) 83 % (31-73) 84 % (31-73) Lymphocytes (%) (Auto) 10 % (24-48) 8 % (24-48) Monocytes (%) (Auto) 5 % (0-9) 7 % (0-9) Eosinophils (%) (Auto) 1 % (0-3) 1 % (0-3) Basophils (%) (Auto) 0 % (0-3) 0 % (0-3) Neutrophils # (Auto) 15.5 x10^3/uL (1.8-7.7) 19.7 x10^3/uL (1.8-7.7) Lymphocytes # (Auto) 1.9 x10^3/uL (1.0-4.8) 1.9 x10^3/uL (1.0-4.8) Monocytes # (Auto) 1.0 x10^3/uL (0.0-1.1) 1.5 x10^3/uL (0.0-1.1) Eosinophils # (Auto) 0.1 x10^3/uL (0.0-0.7) 0.3 x10^3/uL (0.0-0.7) Basophils # (Auto) 0.0 x10^3/uL (0.0-0.2) 0.1 x10^3/uL (0.0-0.2) Segmented Neutrophils % 88 % (35-66) Band Neutrophils % 2 % (0-9) Lymphocytes % 8 % (24-48) Monocytes % 2 % (0-10) Platelet Estimate Adequate (ADEQUATE) Sodium Level 138 mmol/L (136-145) 138 mmol/L (136-145) Potassium Level 3.9 mmol/L (3.5-5.1) 4.1 mmol/L (3.5-5.1) Chloride Level 102 mmol/L (98-107) 101 mmol/L (98-107) Carbon Dioxide Level 27 mmol/L (21-32) 29 mmol/L (21-32) Anion Gap 9 (6-14) 8 (6-14) Blood Urea Nitrogen 19 mg/dL (7-20) 19 mg/dL (7-20) Creatinine 0.9 mg/dL (0.6-1.0) 0.9 mg/dL (0.6-1.0) Estimated GFR (Cockcroft-Gault) 67.4 67.4 Glucose Level 108 mg/dL (70-99) 125 mg/dL (70-99) Calcium Level 8.5 mg/dL (8.5-10.1) 8.8 mg/dL (8.5-10.1) O2 Saturation 94 % (92-99) Arterial Blood pH 7.45 (7.35-7.45) Arterial Blood pCO2 at Patient Temp 32 mmHg (35-46) Arterial Blood pO2 at Patient Temp 67 mmHg (75-108) Arterial Blood HCO3 22 mmol/L (21-28) Arterial Blood Base Excess -1 mmol/L (-3-3) FiO2 100 Laboratory Tests Test 11/20/20 05:20 11/20/20 06:07 White Blood Count 23.4 x10^3/uL (4.0-11.0) Red Blood Count 4.93 x10^6/uL (3.50-5.40) Hemoglobin 15.1 g/dL (12.0-15.5) Hematocrit 44.8 % (36.0-47.0) Mean Corpuscular Volume 91 fL (79-100) Mean Corpuscular Hemoglobin 31 pg (25-35) Mean Corpuscular Hemoglobin Concent 34 g/dL (31-37) Red Cell Distribution Width 13.8 % (11.5-14.5) Platelet Count 323 x10^3/uL (140-400) Neutrophils (%) (Auto) 84 % (31-73) Lymphocytes (%) (Auto) 8 % (24-48) Monocytes (%) (Auto) 7 % (0-9) Eosinophils (%) (Auto) 1 % (0-3) Basophils (%) (Auto) 0 % (0-3) Neutrophils # (Auto) 19.7 x10^3/uL (1.8-7.7) Lymphocytes # (Auto) 1.9 x10^3/uL (1.0-4.8) Monocytes # (Auto) 1.5 x10^3/uL (0.0-1.1) Eosinophils # (Auto) 0.3 x10^3/uL (0.0-0.7) Basophils # (Auto) 0.1 x10^3/uL (0.0-0.2) Sodium Level 138 mmol/L (136-145) Potassium Level 4.1 mmol/L (3.5-5.1) Chloride Level 101 mmol/L (98-107) Carbon Dioxide Level 29 mmol/L (21-32) Anion Gap 8 (6-14) Blood Urea Nitrogen 19 mg/dL (7-20) Creatinine 0.9 mg/dL (0.6-1.0) Estimated GFR (Cockcroft-Gault) 67.4 Glucose Level 125 mg/dL (70-99) Calcium Level 8.8 mg/dL (8.5-10.1) O2 Saturation 94 % (92-99) Arterial Blood pH 7.45 (7.35-7.45) Arterial Blood pCO2 at Patient Temp 32 mmHg (35-46) Arterial Blood pO2 at Patient Temp 67 mmHg (75-108) Arterial Blood HCO3 22 mmol/L (21-28) Arterial Blood Base Excess -1 mmol/L (-3-3) FiO2 100 Medications Active Scripts Medications Dose Route/Sig Max Daily Dose Days Date Category No Known Medications Prior To Admisstion (Info) Each 1 Each 1X 11/13/20 Reported Impression . IMPRESSION: 1. Acute hypoxemic respiratory failure. 2. COVID-19 viral pneumonia. 3. Abnormal x-ray. 4. Possible bacterial pneumonia. 5. Lymphopenia. 6. Elevated transaminases. Plan . 11/20 Continue the same, remdesivir, steroids, Received tocilizumab Proning 11/19 start IS proning as tolerated 02 titration to keep sat 90% Remdesivir Steroids tocilizumab DVT GI prophylaxis discussed w rt 11/18 02 titration to keep sat 90% Remdesivir Steroids tocilizumab DVT GI prophylaxis JUNAID PISANO MD Nov 20, 2020 08:38
[2020-11-20] MEDS: ZINC SULFATE 220 MG CAPSULE. PO SCH (09:57)
[2020-11-20] MEDS: ASPIRIN CHEWABLE 81 MG TABLET. PO SCH (09:57)
[2020-11-20] MEDS: THIAMINE 100 MG TABLET. PO SCH (09:58)
[2020-11-20] MEDS: ASCORBIC ACID 1,000 MG TABLET PO SCH ×3 (09:58→21:03)
[2020-11-20] MEDS: MULTIVITAMIN with MINERAL TABLET. PO SCH (09:58)
[2020-11-20] MEDS: FLUTICASONE 50MCG/NASAL SPRAY 16GM BOTTLE. NS SCH (09:59)
[2020-11-20] MEDS: DOXYCYCLINE HYCLATE 100 MG in IV DEXTROSE 5% 100ML 100 ML IV SCH ×2 (10:02→21:04)
[2020-11-20] MEDS: LACTOBACILLUS RHAMNOSUS GG 1 CAPSULE. PO SCH ×2 (10:03→21:03)
[2020-11-20 11:00] VITALS: BP 138/91
--- NOTE | 2020-11-20 11:49 | NUR ---
SS following up with discharge planning. SS reviewed pt chart and discussed with pt RN. Pt is currently on Vapotherm and Non-Rebreather at 100%. COVID19 positive. Pt on IV Zosyn, IV Deoxycycline, and IV Solu-Medrol. Self pay. Med Assist following. SS will continue to follow for discharge planning.
[2020-11-20 15:00] VITALS: BP 128/85
--- NOTE | 2020-11-20 15:05 | PDOC ---
[facility] PROGRESS NOTE Date of Service DOS: DATE: 11/20/20 TIME: 15:04 Chief Complaint Chief Complaint Acute hypoxic respiratory failure COVID-19 pneumonia Elevated creatinine concerning for rhabdomyolysis versus myopathy Lymphopenia Transaminitis Hypokalemia Moderate protein malnutrition 37 MIN PT exam, chart review, > 50% of time spent with exam, chart review, pt care coordination. History of Present Illness History of Present Illness Overnight was chewing on her oxygen to try to increase the levels. She is seen with O2 saturations 92% on 40 L/min 100% FiO2 Vapotherm. She is able to transition to chair but has significant O2 desaturations. Is eating but not 1% of her meals. No diarrhea at this time. 11/19/2020: Pt seen and examined. Discussed with RN. Chart reviewed. On Vapotherm 40L 100% FiO2. On 15L O2 per non-rebreather. O2 saturation at 98%. Pt up in chair and reports feeling better today. 11/18/2020: Pt seen and examined. Discussed with RN. Chart reviewed. On Vapotherm 40L 100% FiO2. On 15L O2 per non-rebreather. Pt resting, NAD. Nurse reports pt was able to sit on edge of bed and eat breakfast without desaturation of O2. 11/17/2020: Pt seen and examined. Chart reviewed. Discussed with RN. On Vapotherm 40L 100% FiO2. On 15L O2 per non-rebreather. Pt reports increased appetite, feeling better. 11/16/2020: Pt seen and examined. Discussed with RN. Chart reviewed. On Vapotherm 40L 100% FiO2. 11/15/2020: Pt seen and examined. Discussed with RN. Chart reviewed. On Vapotherm 40L 100% FiO2. 11/14/2020: Pt seen and examined. Discussed with RN. Chart reviewed. On 4 L O2 per NC. Vitals/I&O Vitals/I&O: Vital Signs Date Time Temp Pulse Resp B/P (MAP) Pulse Ox O2 Delivery O2 Flow Rate FiO2 11/20/20 13:28 94 VAPOTHERM 40.0 11/20/20 11:00 98.0 113 26 138/91 (107) 98.0 I & O 11/19/20 11/19/20 11/20/20 14:59 22:59 06:59 Intake Total 820 ml 450 ml 120 ml Output Total 850 ml 1100 ml Balance 820 ml -400 ml -980 ml Physical Exam General: Alert, Cooperative, No acute distress Labs Labs: Laboratory Tests Test 11/20/20 05:20 11/20/20 06:07 White Blood Count 23.4 x10^3/uL (4.0-11.0) Red Blood Count 4.93 x10^6/uL (3.50-5.40) Hemoglobin 15.1 g/dL (12.0-15.5) Hematocrit 44.8 % (36.0-47.0) Mean Corpuscular Volume 91 fL (79-100) Mean Corpuscular Hemoglobin 31 pg (25-35) Mean Corpuscular Hemoglobin Concent 34 g/dL (31-37) Red Cell Distribution Width 13.8 % (11.5-14.5) Platelet Count 323 x10^3/uL (140-400) Neutrophils (%) (Auto) 84 % (31-73) Lymphocytes (%) (Auto) 8 % (24-48) Monocytes (%) (Auto) 7 % (0-9) Eosinophils (%) (Auto) 1 % (0-3) Basophils (%) (Auto) 0 % (0-3) Neutrophils # (Auto) 19.7 x10^3/uL (1.8-7.7) Lymphocytes # (Auto) 1.9 x10^3/uL (1.0-4.8) Monocytes # (Auto) 1.5 x10^3/uL (0.0-1.1) Eosinophils # (Auto) 0.3 x10^3/uL (0.0-0.7) Basophils # (Auto) 0.1 x10^3/uL (0.0-0.2) Sodium Level 138 mmol/L (136-145) Potassium Level 4.1 mmol/L (3.5-5.1) Chloride Level 101 mmol/L (98-107) Carbon Dioxide Level 29 mmol/L (21-32) Anion Gap 8 (6-14) Blood Urea Nitrogen 19 mg/dL (7-20) Creatinine 0.9 mg/dL (0.6-1.0) Estimated GFR (Cockcroft-Gault) 67.4 Glucose Level 125 mg/dL (70-99) Calcium Level 8.8 mg/dL (8.5-10.1) O2 Saturation 94 % (92-99) Arterial Blood pH 7.45 (7.35-7.45) Arterial Blood pCO2 at Patient Temp 32 mmHg (35-46) Arterial Blood pO2 at Patient Temp 67 mmHg (75-108) Arterial Blood HCO3 22 mmol/L (21-28) Arterial Blood Base Excess -1 mmol/L (-3-3) FiO2 100 Assessment and Plan Assessmemt and Plan Problems Medical Problems: (1) Community acquired pneumonia Status: Acute (2) Hypokalemia Status: Acute (3) Hypoxia Status: Acute (4) Lab test positive for detection of COVID-19 virus Status: Acute Comment Review of Relevant I have reviewed the following items lenny (where applicable) has been applied. Justifications for Admission Other Justification COVID-19 positive test (U07.1, COVID-19) with Acute Pneumonia (J12.89, Other viral pneumonia) (If respiratory failure or sepsis present, add as separate assessment) ANGIE SOLORZANO MD Nov 20, 2020 15:05
[2020-11-20 19:00] VITALS: BP 114/72
[2020-11-20] MEDS: ENOXAPARIN 40 MG/0.4 ML SYRINGE. SQ SCH (21:04)
[2020-11-20 22:50] VITALS: BP 125/61
[2020-11-20] MEDS: STERILE WATER for RESP 1,000 ML BAG. INH PRN (23:20)
[2020-11-21] MEDS: PIPERACILLIN/TAZOBACTAM 3.375 GM in IV NORMAL SALINE 50ML 50 ML IV SCH ×4 (00:08→18:05)
[2020-11-21 02:40] VITALS: BP 122/82
[2020-11-21] MEDS: methylPREDNISolone SOD SUCC PF 40 MG/ML VIAL. IV SCH (06:05)
[2020-11-21] MEDS: PANTOPRAZOLE 40 MG TABLET.DR. PO SCH (06:06)
[2020-11-21 06:40] LABS: BASO # 0.1 x10^3/uL (0.0-0.2); BASO % 0 % (0-3); EOS # 0.4 x10^3/uL (0.0-0.7); EOS % 2 % (0-3); HEMATOCRIT 44.2 % (36.0-47.0); HEMOGLOBIN 15.5 g/dL (12.0-15.5); LYMPH # 1.6 x10^3/uL (1.0-4.8); LYMPH % 8 % (24-48); MEAN CORPUSCULAR HEMOGLOBIN 32 pg (25-35); MEAN CORPUSCULAR HGB CONC 35 g/dL (31-37); MEAN CORPUSCULAR VOLUME 90 fL (79-100); MONO # 1.2 x10^3/uL (0.0-1.1); MONO % 6 % (0-9); NEUT # 17.9 x10^3/uL (1.8-7.7); NEUT % 84 % (31-73); PLATELET COUNT 306 x10^3/uL (140-400); RED BLOOD COUNT 4.89 x10^6/uL (3.50-5.40); RED CELL DISTRIBUTION WIDTH 13.7 % (11.5-14.5); WHITE BLOOD COUNT 21.2 x10^3/uL (4.0-11.0)
[2020-11-21 06:46] LABS: CALCIUM 8.7 mg/dL (8.5-10.1); CREATININE 0.9 mg/dL (0.6-1.0); GFR 67.4; POTASSIUM 4.1 mmol/L (3.5-5.1)
[2020-11-21 07:00] VITALS: BP 116/68
--- NOTE | 2020-11-21 07:44 | PDOC ---
[facility] [facility] PROGRESS NOTE Date of Service DOS: DATE: 11/21/20 TIME: 07:42 Chief Complaint Chief Complaint Acute hypoxic respiratory failure COVID-19 pneumonia - s/p remdesivir, tocilizumab. Continuing on steroids Elevated creatinine concerning for rhabdomyolysis versus myopathy Lymphopenia Transaminitis Hypokalemia Moderate protein malnutrition 37 MIN PT exam, chart review, > 50% of time spent with exam, chart review, pt care coordination. History of Present Illness History of Present Illness Overnight with desaturations still requiring 40 L/min 100% FiO2 Vapotherm with supplemental facemask O2 15 L. Significant desaturations with movement. Not eating much at all. Intermittently confused when she takes off her O2 11/20: Overnight was chewing on her oxygen to try to increase the levels. She is seen with O2 saturations 92% on 40 L/min 100% FiO2 Vapotherm. She is able to transition to chair but has significant O2 desaturations. Is eating but not 1% of her meals. No diarrhea at this time. 11/19/2020: Pt seen and examined. Discussed with RN. Chart reviewed. On Vapotherm 40L 100% FiO2. On 15L O2 per non-rebreather. O2 saturation at 98%. Pt up in chair and reports feeling better today. 11/18/2020: Pt seen and examined. Discussed with RN. Chart reviewed. On Vapotherm 40L 100% FiO2. On 15L O2 per non-rebreather. Pt resting, NAD. Nurse reports pt was able to sit on edge of bed and eat breakfast without desaturation of O2. 11/17/2020: Pt seen and examined. Chart reviewed. Discussed with RN. On Vapotherm 40L 100% FiO2. On 15L O2 per non-rebreather. Pt reports increased appetite, feeling better. 11/16/2020: Pt seen and examined. Discussed with RN. Chart reviewed. On Vapotherm 40L 100% FiO2. 11/15/2020: Pt seen and examined. Discussed with RN. Chart reviewed. On Vapotherm 40L 100% FiO2. 11/14/2020: Pt seen and examined. Discussed with RN. Chart reviewed. On 4 L O2 per NC. Vitals/I&O Vitals/I&O: Vital Signs Date Time Temp Pulse Resp B/P (MAP) Pulse Ox O2 Delivery O2 Flow Rate FiO2 11/21/20 04:38 95 VAPOTHERM 40.0 11/21/20 02:40 97.5 112 18 122/82 (95) 97.5 I & O 11/20/20 11/20/20 11/21/20 14:59 22:59 06:59 Intake Total 180 ml 500 ml 0 ml Output Total 1300 ml 700 ml Balance 180 ml -800 ml -700 ml Physical Exam General: Alert, Cooperative, No acute distress Labs Labs: Laboratory Tests Test 11/21/20 06:20 White Blood Count 21.2 x10^3/uL (4.0-11.0) Red Blood Count 4.89 x10^6/uL (3.50-5.40) Hemoglobin 15.5 g/dL (12.0-15.5) Hematocrit 44.2 % (36.0-47.0) Mean Corpuscular Volume 90 fL (79-100) Mean Corpuscular Hemoglobin 32 pg (25-35) Mean Corpuscular Hemoglobin Concent 35 g/dL (31-37) Red Cell Distribution Width 13.7 % (11.5-14.5) Platelet Count 306 x10^3/uL (140-400) Neutrophils (%) (Auto) 84 % (31-73) Lymphocytes (%) (Auto) 8 % (24-48) Monocytes (%) (Auto) 6 % (0-9) Eosinophils (%) (Auto) 2 % (0-3) Basophils (%) (Auto) 0 % (0-3) Neutrophils # (Auto) 17.9 x10^3/uL (1.8-7.7) Lymphocytes # (Auto) 1.6 x10^3/uL (1.0-4.8) Monocytes # (Auto) 1.2 x10^3/uL (0.0-1.1) Eosinophils # (Auto) 0.4 x10^3/uL (0.0-0.7) Basophils # (Auto) 0.1 x10^3/uL (0.0-0.2) Sodium Level 138 mmol/L (136-145) Potassium Level 4.1 mmol/L (3.5-5.1) Chloride Level 102 mmol/L (98-107) Carbon Dioxide Level 29 mmol/L (21-32) Anion Gap 7 (6-14) Blood Urea Nitrogen 22 mg/dL (7-20) Creatinine 0.9 mg/dL (0.6-1.0) Estimated GFR (Cockcroft-Gault) 67.4 Glucose Level 130 mg/dL (70-99) Calcium Level 8.7 mg/dL (8.5-10.1) Assessment and Plan Assessmemt and Plan Problems Medical Problems: (1) Community acquired pneumonia Status: Acute (2) Hypokalemia Status: Acute (3) Hypoxia Status: Acute (4) Lab test positive for detection of COVID-19 virus Status: Acute Comment Review of Relevant I have reviewed the following items lenny (where applicable) has been applied. Justifications for Admission Other Justification COVID-19 positive test (U07.1, COVID-19) with Acute Pneumonia (J12.89, Other viral pneumonia) (If respiratory failure or sepsis present, add as separate assessment) ANGIE SOLORZANO MD Nov 21, 2020 07:44
[2020-11-21] MEDS: ASPIRIN CHEWABLE 81 MG TABLET. PO SCH (09:02)
[2020-11-21] MEDS: ASCORBIC ACID 1,000 MG TABLET PO SCH ×4 (09:02→21:29)
[2020-11-21] MEDS: LACTOBACILLUS RHAMNOSUS GG 1 CAPSULE. PO SCH ×2 (09:02→21:29)
[2020-11-21] MEDS: THIAMINE 100 MG TABLET. PO SCH (09:03)
[2020-11-21] MEDS: FLUTICASONE 50MCG/NASAL SPRAY 16GM BOTTLE. NS SCH (09:03)
[2020-11-21] MEDS: ZINC SULFATE 220 MG CAPSULE. PO SCH (09:03)
[2020-11-21] MEDS: MULTIVITAMIN with MINERAL TABLET. PO SCH (09:03)
[2020-11-21] MEDS: DEXAMETHASONE SOD PHOS 4 MG/ML VIAL IVP SCH (09:04)
[2020-11-21] MEDS: DOXYCYCLINE HYCLATE 100 MG in IV DEXTROSE 5% 100ML 100 ML IV SCH ×2 (09:05→21:29)
[2020-11-21 11:00] VITALS: BP 115/77
--- NOTE | 2020-11-21 11:08 | NUR ---
SS following up with discharge planning. SS reviewed pt chart and discussed with pt RN. Pt is currently on Vapotherm and Non-Rebreather at 100%. COVID19 positive. Pt on IV Zosyn, IV Doxycycline, and IV Decadron. Self pay. Med Assist following. SS will continue to follow for discharge planning.
--- NOTE | 2020-11-21 11:20 | PDOC ---
PULMONARY PROGRESS NOTES DATE: 11/21/20 TIME: 11:19 Subjective Same 100% FiO2 40 L feels about the same Vitals Vital Signs Date Time Temp Pulse Resp B/P (MAP) Pulse Ox O2 Delivery O2 Flow Rate FiO2 11/21/20 09:14 93 VAPOTHERM 40.0 11/21/20 07:00 98.1 101 24 116/68 (84) 98.1 Comments On visual inspection, no distress nc at rrr no accessory muscle use no rash Labs Laboratory Tests Test 11/20/20 05:20 11/20/20 06:07 11/21/20 06:20 White Blood Count 23.4 x10^3/uL (4.0-11.0) 21.2 x10^3/uL (4.0-11.0) Red Blood Count 4.93 x10^6/uL (3.50-5.40) 4.89 x10^6/uL (3.50-5.40) Hemoglobin 15.1 g/dL (12.0-15.5) 15.5 g/dL (12.0-15.5) Hematocrit 44.8 % (36.0-47.0) 44.2 % (36.0-47.0) Mean Corpuscular Volume 91 fL (79-100) 90 fL (79-100) Mean Corpuscular Hemoglobin 31 pg (25-35) 32 pg (25-35) Mean Corpuscular Hemoglobin Concent 34 g/dL (31-37) 35 g/dL (31-37) Red Cell Distribution Width 13.8 % (11.5-14.5) 13.7 % (11.5-14.5) Platelet Count 323 x10^3/uL (140-400) 306 x10^3/uL (140-400) Neutrophils (%) (Auto) 84 % (31-73) 84 % (31-73) Lymphocytes (%) (Auto) 8 % (24-48) 8 % (24-48) Monocytes (%) (Auto) 7 % (0-9) 6 % (0-9) Eosinophils (%) (Auto) 1 % (0-3) 2 % (0-3) Basophils (%) (Auto) 0 % (0-3) 0 % (0-3) Neutrophils # (Auto) 19.7 x10^3/uL (1.8-7.7) 17.9 x10^3/uL (1.8-7.7) Lymphocytes # (Auto) 1.9 x10^3/uL (1.0-4.8) 1.6 x10^3/uL (1.0-4.8) Monocytes # (Auto) 1.5 x10^3/uL (0.0-1.1) 1.2 x10^3/uL (0.0-1.1) Eosinophils # (Auto) 0.3 x10^3/uL (0.0-0.7) 0.4 x10^3/uL (0.0-0.7) Basophils # (Auto) 0.1 x10^3/uL (0.0-0.2) 0.1 x10^3/uL (0.0-0.2) Sodium Level 138 mmol/L (136-145) 138 mmol/L (136-145) Potassium Level 4.1 mmol/L (3.5-5.1) 4.1 mmol/L (3.5-5.1) Chloride Level 101 mmol/L (98-107) 102 mmol/L (98-107) Carbon Dioxide Level 29 mmol/L (21-32) 29 mmol/L (21-32) Anion Gap 8 (6-14) 7 (6-14) Blood Urea Nitrogen 19 mg/dL (7-20) 22 mg/dL (7-20) Creatinine 0.9 mg/dL (0.6-1.0) 0.9 mg/dL (0.6-1.0) Estimated GFR (Cockcroft-Gault) 67.4 67.4 Glucose Level 125 mg/dL (70-99) 130 mg/dL (70-99) Calcium Level 8.8 mg/dL (8.5-10.1) 8.7 mg/dL (8.5-10.1) O2 Saturation 94 % (92-99) Arterial Blood pH 7.45 (7.35-7.45) Arterial Blood pCO2 at Patient Temp 32 mmHg (35-46) Arterial Blood pO2 at Patient Temp 67 mmHg (75-108) Arterial Blood HCO3 22 mmol/L (21-28) Arterial Blood Base Excess -1 mmol/L (-3-3) FiO2 100 Laboratory Tests Test 11/21/20 06:20 White Blood Count 21.2 x10^3/uL (4.0-11.0) Red Blood Count 4.89 x10^6/uL (3.50-5.40) Hemoglobin 15.5 g/dL (12.0-15.5) Hematocrit 44.2 % (36.0-47.0) Mean Corpuscular Volume 90 fL (79-100) Mean Corpuscular Hemoglobin 32 pg (25-35) Mean Corpuscular Hemoglobin Concent 35 g/dL (31-37) Red Cell Distribution Width 13.7 % (11.5-14.5) Platelet Count 306 x10^3/uL (140-400) Neutrophils (%) (Auto) 84 % (31-73) Lymphocytes (%) (Auto) 8 % (24-48) Monocytes (%) (Auto) 6 % (0-9) Eosinophils (%) (Auto) 2 % (0-3) Basophils (%) (Auto) 0 % (0-3) Neutrophils # (Auto) 17.9 x10^3/uL (1.8-7.7) Lymphocytes # (Auto) 1.6 x10^3/uL (1.0-4.8) Monocytes # (Auto) 1.2 x10^3/uL (0.0-1.1) Eosinophils # (Auto) 0.4 x10^3/uL (0.0-0.7) Basophils # (Auto) 0.1 x10^3/uL (0.0-0.2) Sodium Level 138 mmol/L (136-145) Potassium Level 4.1 mmol/L (3.5-5.1) Chloride Level 102 mmol/L (98-107) Carbon Dioxide Level 29 mmol/L (21-32) Anion Gap 7 (6-14) Blood Urea Nitrogen 22 mg/dL (7-20) Creatinine 0.9 mg/dL (0.6-1.0) Estimated GFR (Cockcroft-Gault) 67.4 Glucose Level 130 mg/dL (70-99) Calcium Level 8.7 mg/dL (8.5-10.1) Medications Active Scripts Medications Dose Route/Sig Max Daily Dose Days Date Category No Known Medications Prior To Admisstion (Info) Each 1 Each 1X 11/13/20 Reported Impression . IMPRESSION: 1. Acute hypoxemic respiratory failure. 2. COVID-19 viral pneumonia. 3. Abnormal x-ray. 4. Possible bacterial pneumonia. 5. Lymphopenia. 6. Elevated transaminases. Plan . 11/21 Continue present Vapotherm, 100% FiO2 and 40 L flow. Continue the same, remdesivir, steroids, Received tocilizumab Proning Discussed with RN. We will closely watch her respiratory status. 11/20 Continue the same, remdesivir, steroids, Received tocilizumab Proning 11/19 start IS proning as tolerated 02 titration to keep sat 90% Remdesivir Steroids tocilizumab DVT GI prophylaxis discussed w rt 11/18 02 titration to keep sat 90% Remdesivir Steroids tocilizumab DVT GI prophylaxis AALIYAH STARR MD Nov 21, 2020 11:20
[2020-11-21 15:01] VITALS: BP 121/84
[2020-11-21] MEDS: AA 4.25 %/CALCIUM/LYTES/D5W 1,000 ML IV SCH (18:04)
[2020-11-21 19:00] VITALS: BP 114/76
--- NOTE | 2020-11-21 19:30 | NUR ---
Pt sitting up in chair assessment completed vs poc explained pt denied pain at this time, pt assisted back to bed call light placed in reach will resume care and continue to monitor pt.
[2020-11-21] MEDS: ENOXAPARIN 40 MG/0.4 ML SYRINGE. SQ SCH (21:29)
[2020-11-21] MEDS: STERILE WATER for RESP 1,000 ML BAG. INH PRN (21:31)
[2020-11-21] MEDS: guaiFENesin DM 200MG/20MG 10 ML SYRUP PO PRN (22:26)
[2020-11-21 22:40] VITALS: BP 129/81
[2020-11-22] MEDS: PIPERACILLIN/TAZOBACTAM 3.375 GM in IV NORMAL SALINE 50ML 50 ML IV SCH ×5 (00:09→23:23)
[2020-11-22] MEDS: PANTOPRAZOLE 40 MG TABLET.DR. PO SCH (05:43)
[2020-11-22] MEDS: AA 4.25 %/CALCIUM/LYTES/D5W 1,000 ML IV SCH ×2 (05:43→18:16)
[2020-11-22 06:13] LABS: BASO # 0.1 x10^3/uL (0.0-0.2); BASO % 0 % (0-3); EOS # 0.9 x10^3/uL (0.0-0.7); EOS % 5 % (0-3); HEMATOCRIT 40.9 % (36.0-47.0); HEMOGLOBIN 13.9 g/dL (12.0-15.5); LYMPH # 1.8 x10^3/uL (1.0-4.8); LYMPH % 10 % (24-48); MEAN CORPUSCULAR HEMOGLOBIN 31 pg (25-35); MEAN CORPUSCULAR HGB CONC 34 g/dL (31-37); MEAN CORPUSCULAR VOLUME 92 fL (79-100); MONO % 5 % (0-9); NEUT # 15.5 x10^3/uL (1.8-7.7); NEUT % 80 % (31-73); PLATELET COUNT 229 x10^3/uL (140-400); RED BLOOD COUNT 4.47 x10^6/uL (3.50-5.40); RED CELL DISTRIBUTION WIDTH 13.9 % (11.5-14.5); WHITE BLOOD COUNT 19.3 x10^3/uL (4.0-11.0)
[2020-11-22 06:15] LABS: CALCIUM 8.4 mg/dL (8.5-10.1); CREATININE 0.9 mg/dL (0.6-1.0); GFR 67.4; POTASSIUM 3.7 mmol/L (3.5-5.1)
[2020-11-22 07:00] VITALS: BP 108/71
[2020-11-22] MEDS: ASCORBIC ACID 1,000 MG TABLET PO SCH ×3 (09:00→21:00)
[2020-11-22] MEDS: DOXYCYCLINE HYCLATE 100 MG in IV DEXTROSE 5% 100ML 100 ML IV SCH ×2 (09:31→20:59)
[2020-11-22] MEDS: THIAMINE 100 MG TABLET. PO SCH (09:33)
[2020-11-22] MEDS: ASPIRIN CHEWABLE 81 MG TABLET. PO SCH (09:33)
[2020-11-22] MEDS: ZINC SULFATE 220 MG CAPSULE. PO SCH (09:34)
[2020-11-22] MEDS: DEXAMETHASONE SOD PHOS 4 MG/ML VIAL IVP SCH (09:34)
[2020-11-22] MEDS: MULTIVITAMIN with MINERAL TABLET. PO SCH (09:34)
[2020-11-22] MEDS: LACTOBACILLUS RHAMNOSUS GG 1 CAPSULE. PO SCH ×2 (09:34→20:59)
[2020-11-22] MEDS: FLUTICASONE 50MCG/NASAL SPRAY 16GM BOTTLE. NS SCH (09:35)
--- NOTE | 2020-11-22 10:26 | PDOC ---
PULMONARY PROGRESS NOTES DATE: 11/22/20 TIME: 10:24 Subjective Same 100% FiO2 40 L feels about the same Vitals Vital Signs Date Time Temp Pulse Resp B/P (MAP) Pulse Ox O2 Delivery O2 Flow Rate FiO2 11/22/20 09:57 92 VAPOTHERM 30.0 11/22/20 07:00 98.1 112 22 108/71 (83) 98.1 Comments On visual inspection, no distress nc at rrr no accessory muscle use no rash Labs Laboratory Tests Test 11/21/20 06:20 11/22/20 04:55 White Blood Count 21.2 x10^3/uL (4.0-11.0) 19.3 x10^3/uL (4.0-11.0) Red Blood Count 4.89 x10^6/uL (3.50-5.40) 4.47 x10^6/uL (3.50-5.40) Hemoglobin 15.5 g/dL (12.0-15.5) 13.9 g/dL (12.0-15.5) Hematocrit 44.2 % (36.0-47.0) 40.9 % (36.0-47.0) Mean Corpuscular Volume 90 fL (79-100) 92 fL (79-100) Mean Corpuscular Hemoglobin 32 pg (25-35) 31 pg (25-35) Mean Corpuscular Hemoglobin Concent 35 g/dL (31-37) 34 g/dL (31-37) Red Cell Distribution Width 13.7 % (11.5-14.5) 13.9 % (11.5-14.5) Platelet Count 306 x10^3/uL (140-400) 229 x10^3/uL (140-400) Neutrophils (%) (Auto) 84 % (31-73) 80 % (31-73) Lymphocytes (%) (Auto) 8 % (24-48) 10 % (24-48) Monocytes (%) (Auto) 6 % (0-9) 5 % (0-9) Eosinophils (%) (Auto) 2 % (0-3) 5 % (0-3) Basophils (%) (Auto) 0 % (0-3) 0 % (0-3) Neutrophils # (Auto) 17.9 x10^3/uL (1.8-7.7) 15.5 x10^3/uL (1.8-7.7) Lymphocytes # (Auto) 1.6 x10^3/uL (1.0-4.8) 1.8 x10^3/uL (1.0-4.8) Monocytes # (Auto) 1.2 x10^3/uL (0.0-1.1) 1.0 x10^3/uL (0.0-1.1) Eosinophils # (Auto) 0.4 x10^3/uL (0.0-0.7) 0.9 x10^3/uL (0.0-0.7) Basophils # (Auto) 0.1 x10^3/uL (0.0-0.2) 0.1 x10^3/uL (0.0-0.2) Sodium Level 138 mmol/L (136-145) 135 mmol/L (136-145) Potassium Level 4.1 mmol/L (3.5-5.1) 3.7 mmol/L (3.5-5.1) Chloride Level 102 mmol/L (98-107) 100 mmol/L (98-107) Carbon Dioxide Level 29 mmol/L (21-32) 29 mmol/L (21-32) Anion Gap 7 (6-14) 6 (6-14) Blood Urea Nitrogen 22 mg/dL (7-20) 26 mg/dL (7-20) Creatinine 0.9 mg/dL (0.6-1.0) 0.9 mg/dL (0.6-1.0) Estimated GFR (Cockcroft-Gault) 67.4 67.4 Glucose Level 130 mg/dL (70-99) 106 mg/dL (70-99) Calcium Level 8.7 mg/dL (8.5-10.1) 8.4 mg/dL (8.5-10.1) Laboratory Tests Test 11/22/20 04:55 White Blood Count 19.3 x10^3/uL (4.0-11.0) Red Blood Count 4.47 x10^6/uL (3.50-5.40) Hemoglobin 13.9 g/dL (12.0-15.5) Hematocrit 40.9 % (36.0-47.0) Mean Corpuscular Volume 92 fL (79-100) Mean Corpuscular Hemoglobin 31 pg (25-35) Mean Corpuscular Hemoglobin Concent 34 g/dL (31-37) Red Cell Distribution Width 13.9 % (11.5-14.5) Platelet Count 229 x10^3/uL (140-400) Neutrophils (%) (Auto) 80 % (31-73) Lymphocytes (%) (Auto) 10 % (24-48) Monocytes (%) (Auto) 5 % (0-9) Eosinophils (%) (Auto) 5 % (0-3) Basophils (%) (Auto) 0 % (0-3) Neutrophils # (Auto) 15.5 x10^3/uL (1.8-7.7) Lymphocytes # (Auto) 1.8 x10^3/uL (1.0-4.8) Monocytes # (Auto) 1.0 x10^3/uL (0.0-1.1) Eosinophils # (Auto) 0.9 x10^3/uL (0.0-0.7) Basophils # (Auto) 0.1 x10^3/uL (0.0-0.2) Sodium Level 135 mmol/L (136-145) Potassium Level 3.7 mmol/L (3.5-5.1) Chloride Level 100 mmol/L (98-107) Carbon Dioxide Level 29 mmol/L (21-32) Anion Gap 6 (6-14) Blood Urea Nitrogen 26 mg/dL (7-20) Creatinine 0.9 mg/dL (0.6-1.0) Estimated GFR (Cockcroft-Gault) 67.4 Glucose Level 106 mg/dL (70-99) Calcium Level 8.4 mg/dL (8.5-10.1) Medications Active Scripts Medications Dose Route/Sig Max Daily Dose Days Date Category No Known Medications Prior To Admisstion (Info) Each 1 Each 1X 11/13/20 Reported Impression . IMPRESSION: 1. Acute hypoxemic respiratory failure. 2. COVID-19 viral pneumonia. 3. Abnormal x-ray. 4. Possible bacterial pneumonia. 5. Lymphopenia. 6. Elevated transaminases. Plan . 11/22 Continue present Vapotherm, 100% FiO2 and 40 L flow. Continue the same, remdesivir, steroids, tocilizumab Proning Discussed with RN. We will closely watch her respiratory status. 11/21 Continue present Vapotherm, 100% FiO2 and 40 L flow. Continue the same, remdesivir, steroids, Received tocilizumab Proning Discussed with RN. We will closely watch her respiratory status. 11/20 Continue the same, remdesivir, steroids, Received tocilizumab Proning 11/19 start IS proning as tolerated 02 titration to keep sat 90% Remdesivir Steroids tocilizumab DVT GI prophylaxis discussed w rt 11/18 02 titration to keep sat 90% Remdesivir Steroids tocilizumab DVT GI prophylaxis AALIYAH STARR MD Nov 22, 2020 10:26
[2020-11-22 11:00] VITALS: BP 125/83
[2020-11-22] MEDS: STERILE WATER for RESP 1,000 ML BAG. INH PRN (11:36)
--- NOTE | 2020-11-22 12:01 | PDOC ---
[facility] PROGRESS NOTE Date of Service DOS: DATE: 11/22/20 TIME: 12:00 Chief Complaint Chief Complaint Acute hypoxic respiratory failure COVID-19 pneumonia - s/p remdesivir, tocilizumab. Continuing on steroids Elevated creatinine concerning for rhabdomyolysis versus myopathy Lymphopenia Transaminitis Hypokalemia Moderate protein malnutrition 35 MIN PT exam, chart review, > 50% of time spent with exam, chart review, pt care coordination. History of Present Illness History of Present Illness 11/22: Afebrile. Slept overnight. O2 saturations minimally improved now on 30 L/min 100% FiO2 Vapotherm with saturations 91 to 93%. She is a little less a nxious. Still eating very little. Very weak. 11/21: Overnight with desaturations still requiring 40 L/min 100% FiO2 Vapotherm with supplemental facemask O2 15 L. Significant desaturations with movement. Not eating much at all. Intermittently confused when she takes off her O2 11/20: Overnight was chewing on her oxygen to try to increase the levels. She is seen with O2 saturations 92% on 40 L/min 100% FiO2 Vapotherm. She is able to transition to chair but has significant O2 desaturations. Is eating but not 1% of her meals. No diarrhea at this time. 11/19/2020: Pt seen and examined. Discussed with RN. Chart reviewed. On Vapotherm 40L 100% FiO2. On 15L O2 per non-rebreather. O2 saturation at 98%. Pt up in chair and reports feeling better today. 11/18/2020: Pt seen and examined. Discussed with RN. Chart reviewed. On Vapotherm 40L 100% FiO2. On 15L O2 per non-rebreather. Pt resting, NAD. Nurse reports pt was able to sit on edge of bed and eat breakfast without desaturation of O2. 11/17/2020: Pt seen and examined. Chart reviewed. Discussed with RN. On Vapotherm 40L 100% FiO2. On 15L O2 per non-rebreather. Pt reports increased appetite, feeling better. 11/16/2020: Pt seen and examined. Discussed with RN. Chart reviewed. On Vapotherm 40L 100% FiO2. 11/15/2020: Pt seen and examined. Discussed with RN. Chart reviewed. On Vapotherm 40L 100% FiO2. 11/14/2020: Pt seen and examined. Discussed with RN. Chart reviewed. On 4 L O2 per NC. Vitals/I&O Vitals/I&O: Vital Signs Date Time Temp Pulse Resp B/P (MAP) Pulse Ox O2 Delivery O2 Flow Rate FiO2 11/22/20 11:37 92 VAPOTHERM 30.0 11/22/20 11:00 98.9 104 24 125/83 (97) 98.9 I & O 11/21/20 11/21/20 11/22/20 15:00 23:00 07:00 Intake Total 360 ml 220 ml 200 ml Output Total 750 ml 750 ml Balance 360 ml -530 ml -550 ml Physical Exam General: Alert, Cooperative, No acute distress Labs Labs: Laboratory Tests Test 11/22/20 04:55 White Blood Count 19.3 x10^3/uL (4.0-11.0) Red Blood Count 4.47 x10^6/uL (3.50-5.40) Hemoglobin 13.9 g/dL (12.0-15.5) Hematocrit 40.9 % (36.0-47.0) Mean Corpuscular Volume 92 fL (79-100) Mean Corpuscular Hemoglobin 31 pg (25-35) Mean Corpuscular Hemoglobin Concent 34 g/dL (31-37) Red Cell Distribution Width 13.9 % (11.5-14.5) Platelet Count 229 x10^3/uL (140-400) Neutrophils (%) (Auto) 80 % (31-73) Lymphocytes (%) (Auto) 10 % (24-48) Monocytes (%) (Auto) 5 % (0-9) Eosinophils (%) (Auto) 5 % (0-3) Basophils (%) (Auto) 0 % (0-3) Neutrophils # (Auto) 15.5 x10^3/uL (1.8-7.7) Lymphocytes # (Auto) 1.8 x10^3/uL (1.0-4.8) Monocytes # (Auto) 1.0 x10^3/uL (0.0-1.1) Eosinophils # (Auto) 0.9 x10^3/uL (0.0-0.7) Basophils # (Auto) 0.1 x10^3/uL (0.0-0.2) Sodium Level 135 mmol/L (136-145) Potassium Level 3.7 mmol/L (3.5-5.1) Chloride Level 100 mmol/L (98-107) Carbon Dioxide Level 29 mmol/L (21-32) Anion Gap 6 (6-14) Blood Urea Nitrogen 26 mg/dL (7-20) Creatinine 0.9 mg/dL (0.6-1.0) Estimated GFR (Cockcroft-Gault) 67.4 Glucose Level 106 mg/dL (70-99) Calcium Level 8.4 mg/dL (8.5-10.1) Assessment and Plan Assessmemt and Plan Problems Medical Problems: (1) Community acquired pneumonia Status: Acute (2) Hypokalemia Status: Acute (3) Hypoxia Status: Acute (4) Lab test positive for detection of COVID-19 virus Status: Acute Comment Review of Relevant I have reviewed the following items lenny (where applicable) has been applied. Medications: Current Medications Medications (Trade) Dose Ordered Sig/Mona Route PRN Reason Start Time Stop Time Status Last Admin Dose Admin Amino Acids/ Electrolytes/ Dextrose 1,000 ml @ 80 mls/hr [id number] IV 11/21/20 16:45 11/22/20 05:43 Justifications for Admission Other Justification COVID-19 positive test (U07.1, COVID-19) with Acute Pneumonia (J12.89, Other viral pneumonia) (If respiratory failure or sepsis present, add as separate assessment) ANGIE SOLORZANO MD Nov 22, 2020 12:01
--- NOTE | 2020-11-22 15:19 | NUR ---
SS following up with discharge planning. SS reviewed pt chart and discussed with pt RN. Pt is currently on Vapotherm at 30 liters and 100%. COVID19 positive. Pt on Clinimix, IV Decadron, IV Zosyn, and IV Doxycycline. Self pay. Med Assist following. SS will continue to follow for discharge planning.
[2020-11-22 15:25] VITALS: BP 115/72
[2020-11-22 19:00] VITALS: BP 129/83
--- NOTE | 2020-11-22 19:40 | NUR ---
Pt in bed assessment completed pt denied pain at this time plan of care explained call light in reach will resume care and continue to monitor pt.
[2020-11-22] MEDS: ENOXAPARIN 40 MG/0.4 ML SYRINGE. SQ SCH (21:00)
[2020-11-22] MEDS: ALBUTEROL SULFATE 8GM INHALER. INH PRN (21:23)
[2020-11-22] MEDS: ONDANSETRON PF 4 MG/2 ML VIAL. IVP PRN (21:24)
[2020-11-22] MEDS ORDERED: ALBUTEROL SULFATE 2.5 MG/3 ML NEBU. NEB PRN (21:30)
[2020-11-22 23:00] VITALS: BP 139/81
[2020-11-23] MEDS: STERILE WATER for RESP 1,000 ML BAG. INH PRN (00:05)
[2020-11-23 02:49] VITALS: BP 133/84
[2020-11-23] MEDS: DOCUSATE SODIUM 100 MG CAPSULE. PO PRN (03:16)
[2020-11-23] MEDS: PANTOPRAZOLE 40 MG TABLET.DR. PO SCH (06:19)
[2020-11-23] MEDS: PIPERACILLIN/TAZOBACTAM 3.375 GM in IV NORMAL SALINE 50ML 50 ML IV SCH ×3 (06:19→19:07)
[2020-11-23] MEDS: AA 4.25 %/CALCIUM/LYTES/D5W 1,000 ML IV SCH ×2 (06:21→19:18)
[2020-11-23 06:45] LABS: BASO # 0.1 x10^3/uL (0.0-0.2); BASO % 0 % (0-3); EOS # 0.5 x10^3/uL (0.0-0.7); EOS % 3 % (0-3); HEMATOCRIT 40.2 % (36.0-47.0); HEMOGLOBIN 13.6 g/dL (12.0-15.5); LYMPH # 1.5 x10^3/uL (1.0-4.8); LYMPH % 7 % (24-48); MEAN CORPUSCULAR HEMOGLOBIN 31 pg (25-35); MEAN CORPUSCULAR HGB CONC 34 g/dL (31-37); MEAN CORPUSCULAR VOLUME 92 fL (79-100); MONO # 0.8 x10^3/uL (0.0-1.1); MONO % 4 % (0-9); NEUT # 17.9 x10^3/uL (1.8-7.7); NEUT % 86 % (31-73); PLATELET COUNT 183 x10^3/uL (140-400); RED BLOOD COUNT 4.37 x10^6/uL (3.50-5.40); RED CELL DISTRIBUTION WIDTH 13.5 % (11.5-14.5); WHITE BLOOD COUNT 20.8 x10^3/uL (4.0-11.0)
[2020-11-23 06:57] LABS: CALCIUM 8.6 mg/dL (8.5-10.1); CREATININE 0.7 mg/dL (0.6-1.0); GFR 90.1; POTASSIUM 3.7 mmol/L (3.5-5.1)
[2020-11-23 07:00] VITALS: BP 117/82
[2020-11-23] MEDS: THIAMINE 100 MG TABLET. PO SCH (09:12)
[2020-11-23] MEDS: LACTOBACILLUS RHAMNOSUS GG 1 CAPSULE. PO SCH ×2 (09:12→21:32)
[2020-11-23] MEDS: MULTIVITAMIN with MINERAL TABLET. PO SCH (09:12)
[2020-11-23] MEDS: ASPIRIN CHEWABLE 81 MG TABLET. PO SCH (09:12)
[2020-11-23] MEDS: ZINC SULFATE 220 MG CAPSULE. PO SCH (09:12)
[2020-11-23] MEDS: ASCORBIC ACID 1,000 MG TABLET PO SCH ×3 (09:12→21:00)
[2020-11-23] MEDS: FLUTICASONE 50MCG/NASAL SPRAY 16GM BOTTLE. NS SCH (09:13)
[2020-11-23] MEDS: DEXAMETHASONE SOD PHOS 4 MG/ML VIAL IVP SCH (09:13)
[2020-11-23] MEDS: DOXYCYCLINE HYCLATE 100 MG in IV DEXTROSE 5% 100ML 100 ML IV SCH ×2 (09:13→21:33)
[2020-11-23] MEDS: HYDROcodone/APAP 5/325MG 1 TAB TABLET PO PRN ×2 (10:11→19:14)
[2020-11-23 11:14] VITALS: BP 112/75
--- NOTE | 2020-11-23 13:52 | PDOC ---
[facility] PROGRESS NOTE Date of Service DOS: DATE: 11/23/20 TIME: 13:47 Chief Complaint Chief Complaint Acute hypoxic respiratory failure COVID-19 pneumonia - s/p remdesivir, tocilizumab. Continuing on steroids Elevated creatinine concerning for rhabdomyolysis versus myopathy Lymphopenia Transaminitis Hypokalemia Moderate protein malnutrition 37 MIN PT exam, chart review, > 50% of time spent with exam, chart review, pt care coordination. History of Present Illness History of Present Illness Afebrile. Slept again overnight. O2 saturations 91% on 3 L/min 100% FiO2. She is much more alert today less anxious. Eating a little more. Wants to get up to chair and have Berumen catheter removed today and start with therapy. 11/22: Afebrile. Slept overnight. O2 saturations minimally improved now on 30 L/min 100% FiO2 Vapotherm with saturations 91 to 93%. She is a little less anxious. Still eating very little. Very weak. 11/21: Overnight with desaturations still requiring 40 L/min 100% FiO2 Vapotherm with supplemental facemask O2 15 L. Significant desaturations with movement. Not eating much at all. Intermittently confused when she takes off her O2 11/20: Overnight was chewing on her oxygen to try to increase the levels. She is seen with O2 saturations 92% on 40 L/min 100% FiO2 Vapotherm. She is able to transition to chair but has significant O2 desaturations. Is eating but not 1% of her meals. No diarrhea at this time. 11/19/2020: Pt seen and examined. Discussed with RN. Chart reviewed. On Vapotherm 40L 100% FiO2. On 15L O2 per non-rebreather. O2 saturation at 98%. Pt up in chair and reports feeling better today. 11/18/2020: Pt seen and examined. Discussed with RN. Chart reviewed. On Vapotherm 40L 100% FiO2. On 15L O2 per non-rebreather. Pt resting, NAD. Nurse reports pt was able to sit on edge of bed and eat breakfast without desaturation of O2. 11/17/2020: Pt seen and examined. Chart reviewed. Discussed with RN. On Vapotherm 40L 100% FiO2. On 15L O2 per non-rebreather. Pt reports increased appetite, feeling better. 11/16/2020: Pt seen and examined. Discussed with RN. Chart reviewed. On Vapotherm 40L 100% FiO2. 11/15/2020: Pt seen and examined. Discussed with RN. Chart reviewed. On Vapotherm 40L 100% FiO2. 11/14/2020: Pt seen and examined. Discussed with RN. Chart reviewed. On 4 L O2 per NC. Vitals/I&O Vitals/I&O: Vital Signs Date Time Temp Pulse Resp B/P (MAP) Pulse Ox O2 Delivery O2 Flow Rate FiO2 11/23/20 11:14 97.9 111 26 112/75 (87) 96 Vapotherm 30.0 97.9 I & O 11/22/20 11/22/20 11/23/20 15:00 23:00 07:00 Intake Total 460 ml 510 ml 240 ml Output Total 750 ml 1200 ml 1600 ml Balance -290 ml -690 ml -1360 ml Physical Exam General: Alert, Cooperative, No acute distress Labs Labs: Laboratory Tests Test 11/23/20 06:00 White Blood Count 20.8 x10^3/uL (4.0-11.0) Red Blood Count 4.37 x10^6/uL (3.50-5.40) Hemoglobin 13.6 g/dL (12.0-15.5) Hematocrit 40.2 % (36.0-47.0) Mean Corpuscular Volume 92 fL (79-100) Mean Corpuscular Hemoglobin 31 pg (25-35) Mean Corpuscular Hemoglobin Concent 34 g/dL (31-37) Red Cell Distribution Width 13.5 % (11.5-14.5) Platelet Count 183 x10^3/uL (140-400) Neutrophils (%) (Auto) 86 % (31-73) Lymphocytes (%) (Auto) 7 % (24-48) Monocytes (%) (Auto) 4 % (0-9) Eosinophils (%) (Auto) 3 % (0-3) Basophils (%) (Auto) 0 % (0-3) Neutrophils # (Auto) 17.9 x10^3/uL (1.8-7.7) Lymphocytes # (Auto) 1.5 x10^3/uL (1.0-4.8) Monocytes # (Auto) 0.8 x10^3/uL (0.0-1.1) Eosinophils # (Auto) 0.5 x10^3/uL (0.0-0.7) Basophils # (Auto) 0.1 x10^3/uL (0.0-0.2) Sodium Level 136 mmol/L (136-145) Potassium Level 3.7 mmol/L (3.5-5.1) Chloride Level 102 mmol/L (98-107) Carbon Dioxide Level 28 mmol/L (21-32) Anion Gap 6 (6-14) Blood Urea Nitrogen 17 mg/dL (7-20) Creatinine 0.7 mg/dL (0.6-1.0) Estimated GFR (Cockcroft-Gault) 90.1 Glucose Level 123 mg/dL (70-99) Calcium Level 8.6 mg/dL (8.5-10.1) Assessment and Plan Assessmemt and Plan Problems Medical Problems: (1) Community acquired pneumonia Status: Acute (2) Hypokalemia Status: Acute (3) Hypoxia Status: Acute (4) Lab test positive for detection of COVID-19 virus Status: Acute Comment Review of Relevant I have reviewed the following items lenny (where applicable) has been applied. Medications: Current Medications Medications (Trade) Dose Ordered Sig/Mona Route PRN Reason Start Time Stop Time Status Last Admin Dose Admin Albuterol Sulfate (Ventolin Hfa) 2 puff PRN Q4HRS PRN INH SOA 11/22/20 21:30 11/22/20 21:23 Justifications for Admission Other Justification COVID-19 positive test (U07.1, COVID-19) with Acute Pneumonia (J12.89, Other viral pneumonia) (If respiratory failure or sepsis present, add as separate assessment) ANGIE SOLORZANO MD Nov 23, 2020 13:52
--- NOTE | 2020-11-23 14:00 | PDOC ---
PULMONARY PROGRESS NOTES DATE: 11/23/20 TIME: 13:58 Subjective Same 100% FiO2 40 L feels better Vitals Vital Signs Date Time Temp Pulse Resp B/P (MAP) Pulse Ox O2 Delivery O2 Flow Rate FiO2 11/23/20 11:14 97.9 111 26 112/75 (87) 96 Vapotherm 30.0 97.9 Comments On visual inspection, no distress nc at rrr no accessory muscle use no rash Labs Laboratory Tests Test 11/22/20 04:55 11/23/20 06:00 White Blood Count 19.3 x10^3/uL (4.0-11.0) 20.8 x10^3/uL (4.0-11.0) Red Blood Count 4.47 x10^6/uL (3.50-5.40) 4.37 x10^6/uL (3.50-5.40) Hemoglobin 13.9 g/dL (12.0-15.5) 13.6 g/dL (12.0-15.5) Hematocrit 40.9 % (36.0-47.0) 40.2 % (36.0-47.0) Mean Corpuscular Volume 92 fL (79-100) 92 fL (79-100) Mean Corpuscular Hemoglobin 31 pg (25-35) 31 pg (25-35) Mean Corpuscular Hemoglobin Concent 34 g/dL (31-37) 34 g/dL (31-37) Red Cell Distribution Width 13.9 % (11.5-14.5) 13.5 % (11.5-14.5) Platelet Count 229 x10^3/uL (140-400) 183 x10^3/uL (140-400) Neutrophils (%) (Auto) 80 % (31-73) 86 % (31-73) Lymphocytes (%) (Auto) 10 % (24-48) 7 % (24-48) Monocytes (%) (Auto) 5 % (0-9) 4 % (0-9) Eosinophils (%) (Auto) 5 % (0-3) 3 % (0-3) Basophils (%) (Auto) 0 % (0-3) 0 % (0-3) Neutrophils # (Auto) 15.5 x10^3/uL (1.8-7.7) 17.9 x10^3/uL (1.8-7.7) Lymphocytes # (Auto) 1.8 x10^3/uL (1.0-4.8) 1.5 x10^3/uL (1.0-4.8) Monocytes # (Auto) 1.0 x10^3/uL (0.0-1.1) 0.8 x10^3/uL (0.0-1.1) Eosinophils # (Auto) 0.9 x10^3/uL (0.0-0.7) 0.5 x10^3/uL (0.0-0.7) Basophils # (Auto) 0.1 x10^3/uL (0.0-0.2) 0.1 x10^3/uL (0.0-0.2) Sodium Level 135 mmol/L (136-145) 136 mmol/L (136-145) Potassium Level 3.7 mmol/L (3.5-5.1) 3.7 mmol/L (3.5-5.1) Chloride Level 100 mmol/L (98-107) 102 mmol/L (98-107) Carbon Dioxide Level 29 mmol/L (21-32) 28 mmol/L (21-32) Anion Gap 6 (6-14) 6 (6-14) Blood Urea Nitrogen 26 mg/dL (7-20) 17 mg/dL (7-20) Creatinine 0.9 mg/dL (0.6-1.0) 0.7 mg/dL (0.6-1.0) Estimated GFR (Cockcroft-Gault) 67.4 90.1 Glucose Level 106 mg/dL (70-99) 123 mg/dL (70-99) Calcium Level 8.4 mg/dL (8.5-10.1) 8.6 mg/dL (8.5-10.1) Laboratory Tests Test 11/23/20 06:00 White Blood Count 20.8 x10^3/uL (4.0-11.0) Red Blood Count 4.37 x10^6/uL (3.50-5.40) Hemoglobin 13.6 g/dL (12.0-15.5) Hematocrit 40.2 % (36.0-47.0) Mean Corpuscular Volume 92 fL (79-100) Mean Corpuscular Hemoglobin 31 pg (25-35) Mean Corpuscular Hemoglobin Concent 34 g/dL (31-37) Red Cell Distribution Width 13.5 % (11.5-14.5) Platelet Count 183 x10^3/uL (140-400) Neutrophils (%) (Auto) 86 % (31-73) Lymphocytes (%) (Auto) 7 % (24-48) Monocytes (%) (Auto) 4 % (0-9) Eosinophils (%) (Auto) 3 % (0-3) Basophils (%) (Auto) 0 % (0-3) Neutrophils # (Auto) 17.9 x10^3/uL (1.8-7.7) Lymphocytes # (Auto) 1.5 x10^3/uL (1.0-4.8) Monocytes # (Auto) 0.8 x10^3/uL (0.0-1.1) Eosinophils # (Auto) 0.5 x10^3/uL (0.0-0.7) Basophils # (Auto) 0.1 x10^3/uL (0.0-0.2) Sodium Level 136 mmol/L (136-145) Potassium Level 3.7 mmol/L (3.5-5.1) Chloride Level 102 mmol/L (98-107) Carbon Dioxide Level 28 mmol/L (21-32) Anion Gap 6 (6-14) Blood Urea Nitrogen 17 mg/dL (7-20) Creatinine 0.7 mg/dL (0.6-1.0) Estimated GFR (Cockcroft-Gault) 90.1 Glucose Level 123 mg/dL (70-99) Calcium Level 8.6 mg/dL (8.5-10.1) Medications Active Scripts Medications Dose Route/Sig Max Daily Dose Days Date Category No Known Medications Prior To Admisstion (Info) Each 1 Each 1X 11/13/20 Reported Impression . IMPRESSION: 1. Acute hypoxemic respiratory failure. 2. COVID-19 viral pneumonia. 3. Abnormal x-ray. 4. Possible bacterial pneumonia. 5. Lymphopenia. 6. Elevated transaminases. Plan . 11/23 Continue present Vapotherm, 100% FiO2 and 40 L flow./ NRM Continue the same, remdesivir, steroids, tocilizumab Proning Discussed with RN. We will closely watch her respiratory status. feels better AALIYAH SATRR MD Nov 23, 2020 14:00
[2020-11-23 15:00] VITALS: BP 116/73
[2020-11-23 19:00] VITALS: BP 137/83
[2020-11-23] MEDS: ENOXAPARIN 40 MG/0.4 ML SYRINGE. SQ SCH (21:33)
[2020-11-23 23:00] VITALS: BP 98/69
[2020-11-24 02:27] VITALS: BP 119/79
[2020-11-24] MEDS: STERILE WATER for RESP 1,000 ML BAG. INH PRN (04:14)
[2020-11-24] MEDS: HYDROcodone/APAP 5/325MG 1 TAB TABLET PO PRN ×3 (04:14→21:13)
[2020-11-24 04:45] LABS: CALCIUM 8.3 mg/dL (8.5-10.1); CREATININE 0.7 mg/dL (0.6-1.0); GFR 90.1; POTASSIUM 3.9 mmol/L (3.5-5.1)
[2020-11-24] MEDS: PANTOPRAZOLE 40 MG TABLET.DR. PO SCH (05:01)
[2020-11-24] MEDS: PIPERACILLIN/TAZOBACTAM 3.375 GM in IV NORMAL SALINE 50ML 50 ML IV SCH ×5 (05:02→23:10)
[2020-11-24 05:35] LABS: BASO # 0.1 x10^3/uL (0.0-0.2); BASO % 1 % (0-3); EOS # 0.4 x10^3/uL (0.0-0.7); EOS % 2 % (0-3); HEMATOCRIT 36.3 % (36.0-47.0); HEMOGLOBIN 12.6 g/dL (12.0-15.5); LYMPH % 9 % (24-48); MEAN CORPUSCULAR HEMOGLOBIN 31 pg (25-35); MEAN CORPUSCULAR HGB CONC 35 g/dL (31-37); MEAN CORPUSCULAR VOLUME 91 fL (79-100); MONO # 0.9 x10^3/uL (0.0-1.1); MONO % 4 % (0-9); NEUT # 18.3 x10^3/uL (1.8-7.7); NEUT % 85 % (31-73); PLATELET COUNT 154 x10^3/uL (140-400); RED BLOOD COUNT 4.01 x10^6/uL (3.50-5.40); RED CELL DISTRIBUTION WIDTH 13.7 % (11.5-14.5); WHITE BLOOD COUNT 21.6 x10^3/uL (4.0-11.0)
[2020-11-24 07:00] VITALS: BP 114/77
[2020-11-24] MEDS: LACTOBACILLUS RHAMNOSUS GG 1 CAPSULE. PO SCH ×2 (09:01→21:13)
[2020-11-24] MEDS: MULTIVITAMIN with MINERAL TABLET. PO SCH (09:01)
[2020-11-24] MEDS: DOXYCYCLINE HYCLATE 100 MG in IV DEXTROSE 5% 100ML 100 ML IV SCH ×2 (09:01→21:12)
[2020-11-24] MEDS: THIAMINE 100 MG TABLET. PO SCH (09:02)
[2020-11-24] MEDS: ASPIRIN CHEWABLE 81 MG TABLET. PO SCH (09:02)
[2020-11-24] MEDS: DEXAMETHASONE SOD PHOS 4 MG/ML VIAL IVP SCH (09:02)
[2020-11-24] MEDS: ASCORBIC ACID 1,000 MG TABLET PO SCH ×3 (09:02→21:00)
[2020-11-24] MEDS: ZINC SULFATE 220 MG CAPSULE. PO SCH (09:03)
[2020-11-24] MEDS: FLUTICASONE 50MCG/NASAL SPRAY 16GM BOTTLE. NS SCH (09:03)
[2020-11-24] MEDS: AA 4.25 %/CALCIUM/LYTES/D5W 1,000 ML IV SCH ×2 (09:12→21:13)
[2020-11-24] MEDS ORDERED: BENZOCAINE ONE 20% MUCOSAL SPRAY. MM (09:30)
--- NOTE | 2020-11-24 10:29 | PDOC ---
[facility] PROGRESS NOTE Date of Service DOS: DATE: 11/24/20 TIME: 10:23 Chief Complaint Chief Complaint Acute hypoxic respiratory failure COVID-19 pneumonia - s/p remdesivir, tocilizumab. Continuing on steroids Elevated creatinine concerning for rhabdomyolysis versus myopathy Lymphopenia Transaminitis Hypokalemia Moderate protein malnutrition Thrush - likely due to steroids, antibiotics, diflucan x1, throat spray 37 MIN PT exam, chart review, > 50% of time spent with exam, chart review, pt care coordination. History of Present Illness History of Present Illness Afebrile. Sore throat today, appears to be thrush. O2 saturations 91% on 30 l/min 100 FiO2 vapotherm. Berumen out. 11/23: Afebrile. Slept again overnight. O2 saturations 91% on 30 L/min 100% FiO2. She is much more alert today less anxious. Eating a little more. Wants to get up to chair and have Berumen catheter removed today and start with therapy. 11/22: Afebrile. Slept overnight. O2 saturations minimally improved now on 30 L/min 100% FiO2 Vapotherm with saturations 91 to 93%. She is a little less anxious. Still eating very little. Very weak. 11/21: Overnight with desaturations still requiring 40 L/min 100% FiO2 Vapotherm with supplemental facemask O2 15 L. Significant desaturations with movement. Not eating much at all. Intermittently confused when she takes off her O2 11/20: Overnight was chewing on her oxygen to try to increase the levels. She is seen with O2 saturations 92% on 40 L/min 100% FiO2 Vapotherm. She is able to transition to chair but has significant O2 desaturations. Is eating but not 1% of her meals. No diarrhea at this time. 11/19/2020: Pt seen and examined. Discussed with RN. Chart reviewed. On Vapotherm 40L 100% FiO2. On 15L O2 per non-rebreather. O2 saturation at 98%. Pt up in chair and reports feeling better today. 11/18/2020: Pt seen and examined. Discussed with RN. Chart reviewed. On Vapotherm 40L 100% FiO2. On 15L O2 per non-rebreather. Pt resting, NAD. Nurse reports pt was able to sit on edge of bed and eat breakfast without desaturation of O2. 11/17/2020: Pt seen and examined. Chart reviewed. Discussed with RN. On Vapotherm 40L 100% FiO2. On 15L O2 per non-rebreather. Pt reports increased appetite, feeling better. 11/16/2020: Pt seen and examined. Discussed with RN. Chart reviewed. On Vapotherm 40L 100% FiO2. 11/15/2020: Pt seen and examined. Discussed with RN. Chart reviewed. On Vapotherm 40L 100% FiO2. 11/14/2020: Pt seen and examined. Discussed with RN. Chart reviewed. On 4 L O2 per NC. Vitals/I&O Vitals/I&O: Vital Signs Date Time Temp Pulse Resp B/P (MAP) Pulse Ox O2 Delivery O2 Flow Rate FiO2 11/24/20 07:59 86 VAPOTHERM 30.0 11/24/20 07:00 97.7 107 22 114/77 (89) 97.7 I & O 11/23/20 11/23/20 11/24/20 15:00 23:00 07:00 Intake Total 860 ml 820 ml 300 ml Output Total 1950 ml 200 ml 500 ml Balance -1090 ml 620 ml -200 ml Physical Exam General: Alert, Cooperative, No acute distress Labs Labs: Laboratory Tests Test 11/24/20 04:20 11/24/20 05:15 Sodium Level 137 mmol/L (136-145) Potassium Level 3.9 mmol/L (3.5-5.1) Chloride Level 105 mmol/L (98-107) Carbon Dioxide Level 28 mmol/L (21-32) Anion Gap 4 (6-14) Blood Urea Nitrogen 17 mg/dL (7-20) Creatinine 0.7 mg/dL (0.6-1.0) Estimated GFR (Cockcroft-Gault) 90.1 Glucose Level 116 mg/dL (70-99) Calcium Level 8.3 mg/dL (8.5-10.1) White Blood Count 21.6 x10^3/uL (4.0-11.0) Red Blood Count 4.01 x10^6/uL (3.50-5.40) Hemoglobin 12.6 g/dL (12.0-15.5) Hematocrit 36.3 % (36.0-47.0) Mean Corpuscular Volume 91 fL (79-100) Mean Corpuscular Hemoglobin 31 pg (25-35) Mean Corpuscular Hemoglobin Concent 35 g/dL (31-37) Red Cell Distribution Width 13.7 % (11.5-14.5) Platelet Count 154 x10^3/uL (140-400) Neutrophils (%) (Auto) 85 % (31-73) Lymphocytes (%) (Auto) 9 % (24-48) Monocytes (%) (Auto) 4 % (0-9) Eosinophils (%) (Auto) 2 % (0-3) Basophils (%) (Auto) 1 % (0-3) Neutrophils # (Auto) 18.3 x10^3/uL (1.8-7.7) Lymphocytes # (Auto) 2.0 x10^3/uL (1.0-4.8) Monocytes # (Auto) 0.9 x10^3/uL (0.0-1.1) Eosinophils # (Auto) 0.4 x10^3/uL (0.0-0.7) Basophils # (Auto) 0.1 x10^3/uL (0.0-0.2) Assessment and Plan Assessmemt and Plan Problems Medical Problems: (1) Community acquired pneumonia Status: Acute (2) Hypokalemia Status: Acute (3) Hypoxia Status: Acute (4) Lab test positive for detection of COVID-19 virus Status: Acute Comment Review of Relevant I have reviewed the following items lenny (where applicable) has been applied. Justifications for Admission Other Justification COVID-19 positive test (U07.1, COVID-19) with Acute Pneumonia (J12.89, Other viral pneumonia) (If respiratory failure or sepsis present, add as separate assessment) ANGIE SOLORZANO MD Nov 24, 2020 10:29
[2020-11-24] MEDS: DOCUSATE SODIUM 100 MG CAPSULE. PO PRN (10:54)
[2020-11-24] MEDS: MAGNESIUM OXIDE 400 MG TABLET PO SCH (10:54)
[2020-11-24] MEDS: ONDANSETRON PF 4 MG/2 ML VIAL. IVP PRN (10:55)
[2020-11-24 11:00] VITALS: BP 118/89
[2020-11-24] MEDS: NYSTATIN 100,000 UNITS/ML 5 ML ORAL.SUSP. SWSW SCH ×3 (11:10→21:13)
[2020-11-24] MEDS ORDERED: FLUCONAZOLE 100 MG TABLET. PO ONE (11:30)
--- NOTE | 2020-11-24 12:29 | PDOC ---
PULMONARY PROGRESS NOTES DATE: 11/24/20 TIME: 12:24 Subjective feels better remains on high flow vapotherm/ NRM Vitals Vital Signs Date Time Temp Pulse Resp B/P (MAP) Pulse Ox O2 Delivery O2 Flow Rate FiO2 11/24/20 12:10 80 VAPOTHERM 30.0 11/24/20 11:00 97.3 105 24 118/89 (99) 97.3 Comments On visual inspection, no distress nc at rrr no accessory muscle use no rash Labs Laboratory Tests Test 11/23/20 06:00 11/24/20 04:20 11/24/20 05:15 White Blood Count 20.8 x10^3/uL (4.0-11.0) 21.6 x10^3/uL (4.0-11.0) Red Blood Count 4.37 x10^6/uL (3.50-5.40) 4.01 x10^6/uL (3.50-5.40) Hemoglobin 13.6 g/dL (12.0-15.5) 12.6 g/dL (12.0-15.5) Hematocrit 40.2 % (36.0-47.0) 36.3 % (36.0-47.0) Mean Corpuscular Volume 92 fL (79-100) 91 fL (79-100) Mean Corpuscular Hemoglobin 31 pg (25-35) 31 pg (25-35) Mean Corpuscular Hemoglobin Concent 34 g/dL (31-37) 35 g/dL (31-37) Red Cell Distribution Width 13.5 % (11.5-14.5) 13.7 % (11.5-14.5) Platelet Count 183 x10^3/uL (140-400) 154 x10^3/uL (140-400) Neutrophils (%) (Auto) 86 % (31-73) 85 % (31-73) Lymphocytes (%) (Auto) 7 % (24-48) 9 % (24-48) Monocytes (%) (Auto) 4 % (0-9) 4 % (0-9) Eosinophils (%) (Auto) 3 % (0-3) 2 % (0-3) Basophils (%) (Auto) 0 % (0-3) 1 % (0-3) Neutrophils # (Auto) 17.9 x10^3/uL (1.8-7.7) 18.3 x10^3/uL (1.8-7.7) Lymphocytes # (Auto) 1.5 x10^3/uL (1.0-4.8) 2.0 x10^3/uL (1.0-4.8) Monocytes # (Auto) 0.8 x10^3/uL (0.0-1.1) 0.9 x10^3/uL (0.0-1.1) Eosinophils # (Auto) 0.5 x10^3/uL (0.0-0.7) 0.4 x10^3/uL (0.0-0.7) Basophils # (Auto) 0.1 x10^3/uL (0.0-0.2) 0.1 x10^3/uL (0.0-0.2) Sodium Level 136 mmol/L (136-145) 137 mmol/L (136-145) Potassium Level 3.7 mmol/L (3.5-5.1) 3.9 mmol/L (3.5-5.1) Chloride Level 102 mmol/L (98-107) 105 mmol/L (98-107) Carbon Dioxide Level 28 mmol/L (21-32) 28 mmol/L (21-32) Anion Gap 6 (6-14) 4 (6-14) Blood Urea Nitrogen 17 mg/dL (7-20) 17 mg/dL (7-20) Creatinine 0.7 mg/dL (0.6-1.0) 0.7 mg/dL (0.6-1.0) Estimated GFR (Cockcroft-Gault) 90.1 90.1 Glucose Level 123 mg/dL (70-99) 116 mg/dL (70-99) Calcium Level 8.6 mg/dL (8.5-10.1) 8.3 mg/dL (8.5-10.1) Magnesium Level 2.4 mg/dL (1.8-2.4) Laboratory Tests Test 11/24/20 04:20 11/24/20 05:15 Sodium Level 137 mmol/L (136-145) Potassium Level 3.9 mmol/L (3.5-5.1) Chloride Level 105 mmol/L (98-107) Carbon Dioxide Level 28 mmol/L (21-32) Anion Gap 4 (6-14) Blood Urea Nitrogen 17 mg/dL (7-20) Creatinine 0.7 mg/dL (0.6-1.0) Estimated GFR (Cockcroft-Gault) 90.1 Glucose Level 116 mg/dL (70-99) Calcium Level 8.3 mg/dL (8.5-10.1) Magnesium Level 2.4 mg/dL (1.8-2.4) White Blood Count 21.6 x10^3/uL (4.0-11.0) Red Blood Count 4.01 x10^6/uL (3.50-5.40) Hemoglobin 12.6 g/dL (12.0-15.5) Hematocrit 36.3 % (36.0-47.0) Mean Corpuscular Volume 91 fL (79-100) Mean Corpuscular Hemoglobin 31 pg (25-35) Mean Corpuscular Hemoglobin Concent 35 g/dL (31-37) Red Cell Distribution Width 13.7 % (11.5-14.5) Platelet Count 154 x10^3/uL (140-400) Neutrophils (%) (Auto) 85 % (31-73) Lymphocytes (%) (Auto) 9 % (24-48) Monocytes (%) (Auto) 4 % (0-9) Eosinophils (%) (Auto) 2 % (0-3) Basophils (%) (Auto) 1 % (0-3) Neutrophils # (Auto) 18.3 x10^3/uL (1.8-7.7) Lymphocytes # (Auto) 2.0 x10^3/uL (1.0-4.8) Monocytes # (Auto) 0.9 x10^3/uL (0.0-1.1) Eosinophils # (Auto) 0.4 x10^3/uL (0.0-0.7) Basophils # (Auto) 0.1 x10^3/uL (0.0-0.2) Medications Active Scripts Medications Dose Route/Sig Max Daily Dose Days Date Category No Known Medications Prior To Admisstion (Info) Each 1 Each 1X 11/13/20 Reported Impression . IMPRESSION: 1. Acute hypoxemic respiratory failure./ ALI/ Early ARDS 2. COVID-19 viral pneumonia. 3. Abnormal x-ray. 4. Possible bacterial pneumonia. 5. Leukocytosis, no fever, likely due to steroids. will taper dose 6. Elevated transaminases. Plan . Continue present Vapotherm, 100% FiO2 and 40 L flow./ NRM Continue the same, S/P remdesivir, steroids,taper monitor wbc S/P tocilizumaub Discussed with RN. We will closely watch her respiratory status. feels better AALIYAH STARR MD Nov 24, 2020 12:29
[2020-11-24] MEDS ORDERED: NYSTATIN 100,000 UNITS/ML 5 ML ORAL.SUSP. SWSW SCH (13:00)
[2020-11-24 15:00] VITALS: BP 146/86
[2020-11-24 19:00] VITALS: BP 126/85
[2020-11-24] MEDS: ENOXAPARIN 40 MG/0.4 ML SYRINGE. SQ SCH (21:14)
[2020-11-24 23:00] VITALS: BP 127/81
[2020-11-25] MEDS: HYDROcodone/APAP 5/325MG 1 TAB TABLET PO PRN ×4 (02:07→21:40)
[2020-11-25 03:00] VITALS: BP 119/82
[2020-11-25 04:47] LABS: BASO # 0.1 x10^3/uL (0.0-0.2); BASO % 0 % (0-3); EOS # 0.3 x10^3/uL (0.0-0.7); EOS % 1 % (0-3); HEMOGLOBIN 13.4 g/dL (12.0-15.5); LYMPH # 2.7 x10^3/uL (1.0-4.8); LYMPH % 11 % (24-48); MEAN CORPUSCULAR HEMOGLOBIN 31 pg (25-35); MEAN CORPUSCULAR HGB CONC 34 g/dL (31-37); MEAN CORPUSCULAR VOLUME 91 fL (79-100); MONO # 1.2 x10^3/uL (0.0-1.1); MONO % 5 % (0-9); NEUT # 19.7 x10^3/uL (1.8-7.7); NEUT % 83 % (31-73); PLATELET COUNT 151 x10^3/uL (140-400); RED BLOOD COUNT 4.29 x10^6/uL (3.50-5.40); RED CELL DISTRIBUTION WIDTH 13.9 % (11.5-14.5); WHITE BLOOD COUNT 23.8 x10^3/uL (4.0-11.0)
[2020-11-25 05:12] LABS: CALCIUM 8.9 mg/dL (8.5-10.1); CREATININE 0.6 mg/dL (0.6-1.0); GFR 107.6
[2020-11-25] MEDS: PIPERACILLIN/TAZOBACTAM 3.375 GM in IV NORMAL SALINE 50ML 50 ML IV SCH ×3 (06:30→18:33)
[2020-11-25 07:00] VITALS: BP 121/81
[2020-11-25] MEDS: ZINC SULFATE 220 MG CAPSULE. PO SCH (08:16)
[2020-11-25] MEDS: DEXAMETHASONE SOD PHOS 4 MG/ML VIAL IVP SCH (08:16)
[2020-11-25] MEDS: THIAMINE 100 MG TABLET. PO SCH (08:16)
[2020-11-25] MEDS: MULTIVITAMIN with MINERAL TABLET. PO SCH (08:17)
[2020-11-25] MEDS: LACTOBACILLUS RHAMNOSUS GG 1 CAPSULE. PO SCH ×2 (08:17→21:39)
[2020-11-25] MEDS: ASPIRIN CHEWABLE 81 MG TABLET. PO SCH (08:17)
[2020-11-25] MEDS: MAGNESIUM OXIDE 400 MG TABLET PO SCH (08:17)
[2020-11-25] MEDS: PANTOPRAZOLE 40 MG TABLET.DR. PO SCH (08:18)
[2020-11-25] MEDS: NYSTATIN 100,000 UNITS/ML 5 ML ORAL.SUSP. SWSW SCH ×5 (08:19→21:38)
[2020-11-25] MEDS: FLUTICASONE 50MCG/NASAL SPRAY 16GM BOTTLE. NS SCH (08:19)
--- NOTE | 2020-11-25 08:19 | PDOC ---
[facility] PROGRESS NOTE Date of Service DOS: DATE: 11/25/20 TIME: 08:18 Chief Complaint Chief Complaint A/P: Acute hypoxic respiratory failure COVID-19 pneumonia - s/p remdesivir, tocilizumab. Continuing on steroids Elevated creatinine concerning for rhabdomyolysis versus myopathy Lymphopenia Transaminitis Hypokalemia Moderate protein malnutrition Thrush - noted 11/24. likely due to steroids, antibiotics, diflucan x1, throat spray 37 MIN PT exam, chart review, > 50% of time spent with exam, chart review, pt care coordination. History of Present Illness History of Present Illness WBC 23.8 metabolic panel within normal limits. Afebrile. Now requiring 40 L/min Vapotherm, had a bad night, overheated, anxious. Will get repeat CXR, check BNP. PT/OT. 11/24: Afebrile. Sore throat today, appears to be thrush. O2 saturations 91% on 30 l/min 100 FiO2 vapotherm. Berumen out. 11/23: Afebrile. Slept again overnight. O2 saturations 91% on 30 L/min 100% FiO2. She is much more alert today less anxious. Eating a little more. Wants to get up to chair and have Berumen catheter removed today and start with therapy. 11/22: Afebrile. Slept overnight. O2 saturations minimally improved now on 30 L/min 100% FiO2 Vapotherm with saturations 91 to 93%. She is a little less anxious. Still eating very little. Very weak. 11/21: Overnight with desaturations still requiring 40 L/min 100% FiO2 Vapotherm with supplemental facemask O2 15 L. Significant desaturations with movement. Not eating much at all. Intermittently confused when she takes off her O2 11/20: Overnight was chewing on her oxygen to try to increase the levels. She is seen with O2 saturations 92% on 40 L/min 100% FiO2 Vapotherm. She is able to transition to chair but has significant O2 desaturations. Is eating but not 1% of her meals. No diarrhea at this time. 11/19/2020: Pt seen and examined. Discussed with RN. Chart reviewed. On Vapotherm 40L 100% FiO2. On 15L O2 per non-rebreather. O2 saturation at 98%. Pt up in chair and reports feeling better today. 11/18/2020: Pt seen and examined. Discussed with RN. Chart reviewed. On Vapotherm 40L 100% FiO2. On 15L O2 per non-rebreather. Pt resting, NAD. Nurse reports pt was able to sit on edge of bed and eat breakfast without desaturation of O2. 11/17/2020: Pt seen and examined. Chart reviewed. Discussed with RN. On Vapotherm 40L 100% FiO2. On 15L O2 per non-rebreather. Pt reports increased appetite, feeling better. 11/16/2020: Pt seen and examined. Discussed with RN. Chart reviewed. On Vapotherm 40L 100% FiO2. 11/15/2020: Pt seen and examined. Discussed with RN. Chart reviewed. On Vapotherm 40L 100% FiO2. 11/14/2020: Pt seen and examined. Discussed with RN. Chart reviewed. On 4 L O2 per NC. Vitals/I&O Vitals/I&O: Vital Signs Date Time Temp Pulse Resp B/P (MAP) Pulse Ox O2 Delivery O2 Flow Rate FiO2 11/25/20 06:05 93 VAPOTHERM 40.0 11/25/20 04:32 105 44 11/25/20 03:00 97.7 119/82 (94) 97.7 I & O 11/24/20 11/24/20 11/25/20 15:00 23:00 07:00 Intake Total 560 ml 260 ml 200 ml Output Total 325 ml 825 ml Balance 560 ml -65 ml -625 ml Physical Exam General: Alert, Cooperative, No acute distress Labs Labs: Laboratory Tests Test 11/25/20 04:30 White Blood Count 23.8 x10^3/uL (4.0-11.0) Red Blood Count 4.29 x10^6/uL (3.50-5.40) Hemoglobin 13.4 g/dL (12.0-15.5) Hematocrit 39.0 % (36.0-47.0) Mean Corpuscular Volume 91 fL (79-100) Mean Corpuscular Hemoglobin 31 pg (25-35) Mean Corpuscular Hemoglobin Concent 34 g/dL (31-37) Red Cell Distribution Width 13.9 % (11.5-14.5) Platelet Count 151 x10^3/uL (140-400) Neutrophils (%) (Auto) 83 % (31-73) Lymphocytes (%) (Auto) 11 % (24-48) Monocytes (%) (Auto) 5 % (0-9) Eosinophils (%) (Auto) 1 % (0-3) Basophils (%) (Auto) 0 % (0-3) Neutrophils # (Auto) 19.7 x10^3/uL (1.8-7.7) Lymphocytes # (Auto) 2.7 x10^3/uL (1.0-4.8) Monocytes # (Auto) 1.2 x10^3/uL (0.0-1.1) Eosinophils # (Auto) 0.3 x10^3/uL (0.0-0.7) Basophils # (Auto) 0.1 x10^3/uL (0.0-0.2) Sodium Level 138 mmol/L (136-145) Potassium Level 4.0 mmol/L (3.5-5.1) Chloride Level 102 mmol/L (98-107) Carbon Dioxide Level 28 mmol/L (21-32) Anion Gap 8 (6-14) Blood Urea Nitrogen 17 mg/dL (7-20) Creatinine 0.6 mg/dL (0.6-1.0) Estimated GFR (Cockcroft-Gault) 107.6 Glucose Level 96 mg/dL (70-99) Calcium Level 8.9 mg/dL (8.5-10.1) Assessment and Plan Assessmemt and Plan Problems Medical Problems: (1) Community acquired pneumonia Status: Acute (2) Hypokalemia Status: Acute (3) Hypoxia Status: Acute (4) Lab test positive for detection of COVID-19 virus Status: Acute Comment Review of Relevant I have reviewed the following items lenny (where applicable) has been applied. Medications: Current Medications Medications (Trade) Dose Ordered Sig/Mona Route PRN Reason Start Time Stop Time Status Last Admin Dose Admin Fluconazole (Diflucan) 150 mg 1X ONCE PO 11/24/20 11:30 11/24/20 11:31 DC 11/24/20 10:55 Magnesium Oxide (Magnesium Oxide) 400 mg DAILY PO 11/24/20 11:30 11/24/20 10:54 Nystatin (Nystatin Oral Susp) 5 ml [id number] 11/24/20 11:30 11/24/20 21:13 Justifications for Admission Other Justification COVID-19 positive test (U07.1, COVID-19) with Acute Pneumonia (J12.89, Other viral pneumonia) (If respiratory failure or sepsis present, add as separate assessment) ANGIE SOLORZANO MD Nov 25, 2020 08:19
[2020-11-25] MEDS: DOXYCYCLINE HYCLATE 100 MG in IV DEXTROSE 5% 100ML 100 ML IV SCH ×2 (08:20→21:43)
[2020-11-25] MEDS: ASCORBIC ACID 1,000 MG TABLET PO SCH ×3 (09:00→21:00)
[2020-11-25] MEDS: AA 4.25 %/CALCIUM/LYTES/D5W 1,000 ML IV SCH ×2 (10:15→21:34)
--- NOTE | 2020-11-25 10:16 | PDOC ---
PULMONARY PROGRESS NOTES DATE: 11/25/20 TIME: 10:15 Subjective feels better remains on high flow vapotherm/ NRM Vitals Vital Signs Date Time Temp Pulse Resp B/P (MAP) Pulse Ox O2 Delivery O2 Flow Rate FiO2 11/25/20 09:05 93 40.0 11/25/20 08:46 VAPOTHERM 11/25/20 07:00 97.6 119 24 121/81 (94) 97.6 Comments On visual inspection, no distress nc at rrr no accessory muscle use no rash Labs Laboratory Tests Test 11/24/20 04:20 11/24/20 05:15 11/25/20 04:30 Sodium Level 137 mmol/L (136-145) 138 mmol/L (136-145) Potassium Level 3.9 mmol/L (3.5-5.1) 4.0 mmol/L (3.5-5.1) Chloride Level 105 mmol/L (98-107) 102 mmol/L (98-107) Carbon Dioxide Level 28 mmol/L (21-32) 28 mmol/L (21-32) Anion Gap 4 (6-14) 8 (6-14) Blood Urea Nitrogen 17 mg/dL (7-20) 17 mg/dL (7-20) Creatinine 0.7 mg/dL (0.6-1.0) 0.6 mg/dL (0.6-1.0) Estimated GFR (Cockcroft-Gault) 90.1 107.6 Glucose Level 116 mg/dL (70-99) 96 mg/dL (70-99) Calcium Level 8.3 mg/dL (8.5-10.1) 8.9 mg/dL (8.5-10.1) Magnesium Level 2.4 mg/dL (1.8-2.4) White Blood Count 21.6 x10^3/uL (4.0-11.0) 23.8 x10^3/uL (4.0-11.0) Red Blood Count 4.01 x10^6/uL (3.50-5.40) 4.29 x10^6/uL (3.50-5.40) Hemoglobin 12.6 g/dL (12.0-15.5) 13.4 g/dL (12.0-15.5) Hematocrit 36.3 % (36.0-47.0) 39.0 % (36.0-47.0) Mean Corpuscular Volume 91 fL (79-100) 91 fL (79-100) Mean Corpuscular Hemoglobin 31 pg (25-35) 31 pg (25-35) Mean Corpuscular Hemoglobin Concent 35 g/dL (31-37) 34 g/dL (31-37) Red Cell Distribution Width 13.7 % (11.5-14.5) 13.9 % (11.5-14.5) Platelet Count 154 x10^3/uL (140-400) 151 x10^3/uL (140-400) Neutrophils (%) (Auto) 85 % (31-73) 83 % (31-73) Lymphocytes (%) (Auto) 9 % (24-48) 11 % (24-48) Monocytes (%) (Auto) 4 % (0-9) 5 % (0-9) Eosinophils (%) (Auto) 2 % (0-3) 1 % (0-3) Basophils (%) (Auto) 1 % (0-3) 0 % (0-3) Neutrophils # (Auto) 18.3 x10^3/uL (1.8-7.7) 19.7 x10^3/uL (1.8-7.7) Lymphocytes # (Auto) 2.0 x10^3/uL (1.0-4.8) 2.7 x10^3/uL (1.0-4.8) Monocytes # (Auto) 0.9 x10^3/uL (0.0-1.1) 1.2 x10^3/uL (0.0-1.1) Eosinophils # (Auto) 0.4 x10^3/uL (0.0-0.7) 0.3 x10^3/uL (0.0-0.7) Basophils # (Auto) 0.1 x10^3/uL (0.0-0.2) 0.1 x10^3/uL (0.0-0.2) Laboratory Tests Test 11/25/20 04:30 White Blood Count 23.8 x10^3/uL (4.0-11.0) Red Blood Count 4.29 x10^6/uL (3.50-5.40) Hemoglobin 13.4 g/dL (12.0-15.5) Hematocrit 39.0 % (36.0-47.0) Mean Corpuscular Volume 91 fL (79-100) Mean Corpuscular Hemoglobin 31 pg (25-35) Mean Corpuscular Hemoglobin Concent 34 g/dL (31-37) Red Cell Distribution Width 13.9 % (11.5-14.5) Platelet Count 151 x10^3/uL (140-400) Neutrophils (%) (Auto) 83 % (31-73) Lymphocytes (%) (Auto) 11 % (24-48) Monocytes (%) (Auto) 5 % (0-9) Eosinophils (%) (Auto) 1 % (0-3) Basophils (%) (Auto) 0 % (0-3) Neutrophils # (Auto) 19.7 x10^3/uL (1.8-7.7) Lymphocytes # (Auto) 2.7 x10^3/uL (1.0-4.8) Monocytes # (Auto) 1.2 x10^3/uL (0.0-1.1) Eosinophils # (Auto) 0.3 x10^3/uL (0.0-0.7) Basophils # (Auto) 0.1 x10^3/uL (0.0-0.2) Sodium Level 138 mmol/L (136-145) Potassium Level 4.0 mmol/L (3.5-5.1) Chloride Level 102 mmol/L (98-107) Carbon Dioxide Level 28 mmol/L (21-32) Anion Gap 8 (6-14) Blood Urea Nitrogen 17 mg/dL (7-20) Creatinine 0.6 mg/dL (0.6-1.0) Estimated GFR (Cockcroft-Gault) 107.6 Glucose Level 96 mg/dL (70-99) Calcium Level 8.9 mg/dL (8.5-10.1) Medications Active Scripts Medications Dose Route/Sig Max Daily Dose Days Date Category No Known Medications Prior To Admisstion (Info) Each 1 Each 1X 11/13/20 Reported Impression . IMPRESSION: 1. Acute hypoxemic respiratory failure./ ALI/ Early ARDS 2. COVID-19 viral pneumonia. 3. Abnormal x-ray. 4. Possible bacterial pneumonia. 5. Leukocytosis, no fever, likely due to steroids. will taper dose 6. Elevated transaminases. Plan . Continue present Vapotherm, 100% FiO2 and 40 L flow./ NRM Monitor respiratory status closely. Continue the same, S/P remdesivir, steroids,taper monitor wbc S/P tocilizumaub Discussed with RN. We will closely watch her respiratory status. feels better AALIYAH STARR MD Nov 25, 2020 10:16
[2020-11-25 11:00] VITALS: BP 115/79
--- NOTE | 2020-11-25 12:43 | RAD ---
Study: XR CHEST 1V Indication: Covid 19. Worsening hypoxia. Comparison: 11/13/2020 Findings: Right-sided PICC with the tube tip approaching the superior cavoatrial junction. Diffuse hazy attenuation of both lungs with multifocal opacities. The aeration pattern of both lungs has worsened in the interim. Asymmetric elevation of the right hemidiaphragm. No large effusion or pn eumothorax. Impression: 1. Right-sided PICC tip projecting near the superior cavoatrial junction. 2. Worsened appearance of the chest from 11/13/2020 with more extensive bilateral airspace infiltrates . Electronically signed by: FLACA CASTANEDA MD (11/25/2020 12:40 PM) [id number]
[2020-11-25] MEDS: ALBUTEROL SULFATE 8GM INHALER. INH PRN (12:48)
[2020-11-25 15:00] VITALS: BP 135/85
[2020-11-25] MEDS ORDERED: FUROSEMIDE 20 MG/2 ML VIAL. IVP ONE (16:00)
[2020-11-25 19:00] VITALS: BP 116/80
[2020-11-25] MEDS: STERILE WATER for RESP 1,000 ML BAG. INH PRN (20:30)
[2020-11-25] MEDS: ENOXAPARIN 40 MG/0.4 ML SYRINGE. SQ SCH (21:35)
[2020-11-25] MEDS: ONDANSETRON PF 4 MG/2 ML VIAL. IVP PRN (21:37)
[2020-11-25 23:00] VITALS: BP 116/78
[2020-11-26] VITALS (11 sets, daily range): BP systolic 85–158; BP diastolic 65–90
[2020-11-26] MEDS ORDERED: FUROSEMIDE 20 MG/2 ML VIAL. IVP ONE (05:15)
[2020-11-26] MEDS: PIPERACILLIN/TAZOBACTAM 3.375 GM in IV NORMAL SALINE 50ML 50 ML IV SCH ×4 (05:31→17:36)
[2020-11-26] MEDS: NYSTATIN 100,000 UNITS/ML 5 ML ORAL.SUSP. SWSW SCH ×4 (08:50→21:08)
[2020-11-26] MEDS: ASPIRIN CHEWABLE 81 MG TABLET. PO SCH (08:51)
[2020-11-26] MEDS: MULTIVITAMIN with MINERAL TABLET. PO SCH (08:51)
[2020-11-26] MEDS: DEXAMETHASONE SOD PHOS 4 MG/ML VIAL IVP SCH (08:51)
[2020-11-26] MEDS: THIAMINE 100 MG TABLET. PO SCH (08:51)
[2020-11-26] MEDS: ZINC SULFATE 220 MG CAPSULE. PO SCH (08:51)
[2020-11-26] MEDS: PANTOPRAZOLE 40 MG TABLET.DR. PO SCH (08:51)
[2020-11-26] MEDS: LACTOBACILLUS RHAMNOSUS GG 1 CAPSULE. PO SCH ×2 (08:51→21:08)
[2020-11-26] MEDS: MAGNESIUM OXIDE 400 MG TABLET PO SCH (08:51)
[2020-11-26] MEDS: DOXYCYCLINE HYCLATE 100 MG in IV DEXTROSE 5% 100ML 100 ML IV SCH ×2 (08:52→21:09)
[2020-11-26] MEDS: ASCORBIC ACID 1,000 MG TABLET PO SCH ×3 (09:00→21:08)
[2020-11-26] MEDS: FLUTICASONE 50MCG/NASAL SPRAY 16GM BOTTLE. NS SCH (09:00)
--- NOTE | 2020-11-26 10:14 | PDOC ---
PULMONARY PROGRESS NOTES DATE: 11/26/20 TIME: 10:10 Subjective Feels weak. No change in oxygenation status. Easily desaturates in the 70s. remains on high flow vapotherm/ NRM 100% FiO2 Vitals Vital Signs Date Time Temp Pulse Resp B/P (MAP) Pulse Ox O2 Delivery O2 Flow Rate FiO2 11/26/20 08:22 88 VAPOTHERM 40.0 11/26/20 07:00 97.4 139 28 118/81 (93) 97.4 Comments On visual inspection, no distress nc at rrr no accessory muscle use no rash Labs Laboratory Tests Test 11/25/20 04:30 White Blood Count 23.8 x10^3/uL (4.0-11.0) Red Blood Count 4.29 x10^6/uL (3.50-5.40) Hemoglobin 13.4 g/dL (12.0-15.5) Hematocrit 39.0 % (36.0-47.0) Mean Corpuscular Volume 91 fL (79-100) Mean Corpuscular Hemoglobin 31 pg (25-35) Mean Corpuscular Hemoglobin Concent 34 g/dL (31-37) Red Cell Distribution Width 13.9 % (11.5-14.5) Platelet Count 151 x10^3/uL (140-400) Neutrophils (%) (Auto) 83 % (31-73) Lymphocytes (%) (Auto) 11 % (24-48) Monocytes (%) (Auto) 5 % (0-9) Eosinophils (%) (Auto) 1 % (0-3) Basophils (%) (Auto) 0 % (0-3) Neutrophils # (Auto) 19.7 x10^3/uL (1.8-7.7) Lymphocytes # (Auto) 2.7 x10^3/uL (1.0-4.8) Monocytes # (Auto) 1.2 x10^3/uL (0.0-1.1) Eosinophils # (Auto) 0.3 x10^3/uL (0.0-0.7) Basophils # (Auto) 0.1 x10^3/uL (0.0-0.2) Sodium Level 138 mmol/L (136-145) Potassium Level 4.0 mmol/L (3.5-5.1) Chloride Level 102 mmol/L (98-107) Carbon Dioxide Level 28 mmol/L (21-32) Anion Gap 8 (6-14) Blood Urea Nitrogen 17 mg/dL (7-20) Creatinine 0.6 mg/dL (0.6-1.0) Estimated GFR (Cockcroft-Gault) 107.6 Glucose Level 96 mg/dL (70-99) Calcium Level 8.9 mg/dL (8.5-10.1) Phosphorus Level 3.4 mg/dL (2.6-4.7) VV-Sfe-T-Type Natriuretic Peptide 143 pg/mL (0-124) Medications Active Scripts Medications Dose Route/Sig Max Daily Dose Days Date Category No Known Medications Prior To Admisstion (Info) Each 1 Each 1X 11/13/20 Reported Comments Chest x-ray reviewed 11/25/2020. Diffuse interstitial infiltrates which has worsened. This is consistent with ARDS. Impression . IMPRESSION: 1. Acute hypoxemic respiratory failure./ ALI/ Early ARDS. Oxygenation remains marginal despite maximum oxygen support. 2. COVID-19 viral pneumonia. 3. Abnormal x-ray with worsening bilateral interstitial infiltrates consistent with ARDS. No pleural effusions 4. Possible bacterial pneumonia. 5. Leukocytosis, no fever, likely due to steroids. will taper dose 6. Elevated transaminases. Plan . Continue present Vapotherm, 100% FiO2 and 40 L flow./ NRM. Despite maximum oxygen support patient's oxygenation status remains marginal. We will transfer to the ICU once bed available. We may use BiPAP at nighttime and as needed. Monitor respiratory status closely for need for intubation. Continue the same, S/P remdesivir, steroids,taper monitor wbc S/P tocilizumaub Discussed with RN. Discussed with AALIYAH Ash MD Nov 26, 2020 10:14
--- NOTE | 2020-11-26 10:39 | PDOC ---
[facility] PROGRESS NOTE Date of Service DOS: DATE: 11/26/20 TIME: 10:36 Chief Complaint Chief Complaint A/P: Acute hypoxic respiratory failure COVID-19 pneumonia - s/p remdesivir, tocilizumab. Continuing on steroids Elevated creatinine concerning for rhabdomyolysis versus myopathy Lymphopenia Transaminitis Hypokalemia Moderate protein malnutrition Thrush - noted 11/24. likely due to steroids, antibiotics, diflucan x1, throat spray 37 MIN PT exam, chart review, > 50% of time spent with exam, chart review, pt care coordination. History of Present Illness History of Present Illness Despite diuresis and good urine output back on 40 L/min 100% FiO2 Vapotherm with supplemental facemask O2. Discussed with patient she has been getting ICU level care her entire hospital stay and an ICU bed may be available. Discussed with pulmonology she requires ICU. She is asking if she can just go home instead. Advised of the risks of . Discussed with her and her significant other Orion on the phone, she is amenable to ICU transfer. 11/25: WBC 23.8 metabolic panel within normal limits. Afebrile. Now requiring 40 L/min Vapotherm, had a bad night, overheated, anxious. CXR worse, given lasix. 11/24: Afebrile. Sore throat today, appears to be thrush. O2 saturations 91% on 30 l/min 100 FiO2 vapotherm. Berumen out. 11/23: Afebrile. Slept again overnight. O2 saturations 91% on 30 L/min 100% FiO2. She is much more alert today less anxious. Eating a little more. Wants to get up to chair and have Berumen catheter removed today and start with therapy. 11/22: Afebrile. Slept overnight. O2 saturations minimally improved now on 30 L/min 100% FiO2 Vapotherm with saturations 91 to 93%. She is a little less anxious. Still eating very little. Very weak. 11/21: Overnight with desaturations still requiring 40 L/min 100% FiO2 Vapotherm with supplemental facemask O2 15 L. Significant desaturations with movement. Not eating much at all. Intermittently confused when she takes off her O2 11/20: Overnight was chewing on her oxygen to try to increase the levels. She is seen with O2 saturations 92% on 40 L/min 100% FiO2 Vapotherm. She is able to transition to chair but has significant O2 desaturations. Is eating but not 1% of her meals. No diarrhea at this time. 11/19/2020: Pt seen and examined. Discussed with RN. Chart reviewed. On Vapotherm 40L 100% FiO2. On 15L O2 per non-rebreather. O2 saturation at 98%. Pt up in chair and reports feeling better today. 11/18/2020: Pt seen and examined. Discussed with RN. Chart reviewed. On Vapotherm 40L 100% FiO2. On 15L O2 per non-rebreather. Pt resting, NAD. Nurse reports pt was able to sit on edge of bed and eat breakfast without desaturation of O2. 11/17/2020: Pt seen and examined. Chart reviewed. Discussed with RN. On Vapotherm 40L 100% FiO2. On 15L O2 per non-rebreather. Pt reports increased appetite, feeling better. 11/16/2020: Pt seen and examined. Discussed with RN. Chart reviewed. On Vapotherm 40L 100% FiO2. 11/15/2020: Pt seen and examined. Discussed with RN. Chart reviewed. On Vapotherm 40L 100% FiO2. 11/14/2020: Pt seen and examined. Discussed with RN. Chart reviewed. On 4 L O2 per NC. Vitals/I&O Vitals/I&O: Vital Signs Date Time Temp Pulse Resp B/P (MAP) Pulse Ox O2 Delivery O2 Flow Rate FiO2 11/26/20 10:33 96 VAPOTHERM 40.0 11/26/20 07:00 97.4 139 28 118/81 (93) 97.4 I & O 11/25/20 11/25/20 11/26/20 15:00 23:00 07:00 Intake Total 430 ml 50 ml 500 ml Output Total 1500 ml 400 ml Balance 430 ml -1450 ml 100 ml Physical Exam General: Alert, Cooperative, No acute distress Assessment and Plan Assessmemt and Plan Problems Medical Problems: (1) Community acquired pneumonia Status: Acute (2) Hypokalemia Status: Acute (3) Hypoxia Status: Acute (4) Lab test positive for detection of COVID-19 virus Status: Acute Comment Review of Relevant I have reviewed the following items lenny (where applicable) has been applied. Medications: Current Medications Medications (Trade) Dose Ordered Sig/Mona Route PRN Reason Start Time Stop Time Status Last Admin Dose Admin Furosemide (Lasix) 20 mg 1X ONCE IVP 11/25/20 16:00 11/25/20 16:01 DC 11/25/20 16:12 Furosemide (Lasix) 20 mg 1X ONCE IVP 11/26/20 05:15 11/26/20 05:19 DC 11/26/20 05:31 Justifications for Admission Other Justification COVID-19 positive test (U07.1, COVID-19) with Acute Pneumonia (J12.89, Other viral pneumonia) (If respiratory failure or sepsis present, add as separate assessment) ANGIE SOLORZANO MD Nov 26, 2020 10:39
[2020-11-26] MEDS: AA 4.25 %/CALCIUM/LYTES/D5W 1,000 ML IV SCH (13:53)
[2020-11-26] MEDS: FUROSEMIDE 20 MG/2 ML VIAL. IVP SCH (13:53)
[2020-11-26] MEDS ORDERED: ATROPINE 0.5 MG/5 ML DISP.SYRINGE. IV PRN (17:15)
[2020-11-26] MEDS ORDERED: IV NORMAL SALINE 500ML BAG 500 ML IV PRN (17:15)
[2020-11-26] MEDS: DEXMEDETOMIDINE 400 MCG in IV NORMAL SALINE 100ML 96 ML IV PRN ×2 (17:35→21:11)
[2020-11-26] MEDS: ENOXAPARIN 40 MG/0.4 ML SYRINGE. SQ SCH (21:08)
[2020-11-26] MEDS: STERILE WATER for RESP 1,000 ML BAG. INH PRN (21:12)
[2020-11-27] VITALS (24 sets, daily range): BP systolic 77–111; BP diastolic 55–81
[2020-11-27] MEDS: PIPERACILLIN/TAZOBACTAM 3.375 GM in IV NORMAL SALINE 50ML 50 ML IV SCH ×4 (00:48→17:43)
[2020-11-27 06:02] LABS: BASO # 0.1 x10^3/uL (0.0-0.2); BASO % 1 % (0-3); EOS # 0.6 x10^3/uL (0.0-0.7); EOS % 3 % (0-3); HEMOGLOBIN 13.5 g/dL (12.0-15.5); LYMPH # 2.3 x10^3/uL (1.0-4.8); LYMPH % 11 % (24-48); MEAN CORPUSCULAR HEMOGLOBIN 32 pg (25-35); MEAN CORPUSCULAR HGB CONC 34 g/dL (31-37); MEAN CORPUSCULAR VOLUME 94 fL (79-100); MONO # 1.3 x10^3/uL (0.0-1.1); MONO % 6 % (0-9); NEUT # 16.7 x10^3/uL (1.8-7.7); NEUT % 80 % (31-73); PLATELET COUNT 137 x10^3/uL (140-400); RED BLOOD COUNT 4.28 x10^6/uL (3.50-5.40); RED CELL DISTRIBUTION WIDTH 14.2 % (11.5-14.5); WHITE BLOOD COUNT 20.9 x10^3/uL (4.0-11.0)
[2020-11-27 06:40] LABS: CALCIUM 9.5 mg/dL (8.5-10.1); CREATININE 0.7 mg/dL (0.6-1.0); GFR 90.1; POTASSIUM 3.9 mmol/L (3.5-5.1)
[2020-11-27] MEDS: MAGNESIUM OXIDE 400 MG TABLET PO SCH (07:56)
[2020-11-27] MEDS: NYSTATIN 100,000 UNITS/ML 5 ML ORAL.SUSP. SWSW SCH ×4 (07:56→20:27)
[2020-11-27] MEDS: DOXYCYCLINE HYCLATE 100 MG in IV DEXTROSE 5% 100ML 100 ML IV SCH ×2 (07:56→20:58)
[2020-11-27] MEDS: LACTOBACILLUS RHAMNOSUS GG 1 CAPSULE. PO SCH ×2 (07:57→20:58)
[2020-11-27] MEDS: ZINC SULFATE 220 MG CAPSULE. PO SCH (07:57)
[2020-11-27] MEDS: ASPIRIN CHEWABLE 81 MG TABLET. PO SCH (07:58)
[2020-11-27] MEDS: ASCORBIC ACID 1,000 MG TABLET PO SCH ×4 (07:58→20:27)
[2020-11-27] MEDS: THIAMINE 100 MG TABLET. PO SCH (07:58)
[2020-11-27] MEDS: DEXAMETHASONE SOD PHOS 4 MG/ML VIAL IVP SCH (07:59)
[2020-11-27] MEDS: PANTOPRAZOLE 40 MG TABLET.DR. PO SCH (07:59)
[2020-11-27] MEDS: FUROSEMIDE 20 MG/2 ML VIAL. IVP SCH ×2 (07:59→13:35)
[2020-11-27] MEDS: AA 4.25 %/CALCIUM/LYTES/D5W 1,000 ML IV SCH (08:00)
[2020-11-27] MEDS: MULTIVITAMIN with MINERAL TABLET. PO SCH (08:04)
[2020-11-27] MEDS: FLUTICASONE 50MCG/NASAL SPRAY 16GM BOTTLE. NS SCH (08:31)
[2020-11-27] MEDS: SENNOSIDES 8.6 MG TABLET PO PRN ×2 (08:58→20:44)
--- NOTE | 2020-11-27 10:31 | PDOC ---
PULMONARY PROGRESS NOTES DATE: 11/27/20 TIME: 10:30 Subjective Continues to require oxygen at high flow, 100% FiO2, 40 L Vapotherm Vitals Vital Signs Date Time Temp Pulse Resp B/P (MAP) Pulse Ox O2 Delivery O2 Flow Rate FiO2 11/27/20 10:00 88 42 98/78 (85) 91 vapotherm and nrb 40.0 11/27/20 08:00 97.9 97.9 Comments On visual inspection, no distress nc at rrr no accessory muscle use no rash Labs Laboratory Tests Test 11/27/20 05:20 White Blood Count 20.9 x10^3/uL (4.0-11.0) Red Blood Count 4.28 x10^6/uL (3.50-5.40) Hemoglobin 13.5 g/dL (12.0-15.5) Hematocrit 40.0 % (36.0-47.0) Mean Corpuscular Volume 94 fL (79-100) Mean Corpuscular Hemoglobin 32 pg (25-35) Mean Corpuscular Hemoglobin Concent 34 g/dL (31-37) Red Cell Distribution Width 14.2 % (11.5-14.5) Platelet Count 137 x10^3/uL (140-400) Neutrophils (%) (Auto) 80 % (31-73) Lymphocytes (%) (Auto) 11 % (24-48) Monocytes (%) (Auto) 6 % (0-9) Eosinophils (%) (Auto) 3 % (0-3) Basophils (%) (Auto) 1 % (0-3) Neutrophils # (Auto) 16.7 x10^3/uL (1.8-7.7) Lymphocytes # (Auto) 2.3 x10^3/uL (1.0-4.8) Monocytes # (Auto) 1.3 x10^3/uL (0.0-1.1) Eosinophils # (Auto) 0.6 x10^3/uL (0.0-0.7) Basophils # (Auto) 0.1 x10^3/uL (0.0-0.2) Sodium Level 136 mmol/L (136-145) Potassium Level 3.9 mmol/L (3.5-5.1) Chloride Level 98 mmol/L (98-107) Carbon Dioxide Level 31 mmol/L (21-32) Anion Gap 7 (6-14) Blood Urea Nitrogen 29 mg/dL (7-20) Creatinine 0.7 mg/dL (0.6-1.0) Estimated GFR (Cockcroft-Gault) 90.1 Glucose Level 122 mg/dL (70-99) Calcium Level 9.5 mg/dL (8.5-10.1) Laboratory Tests Test 11/27/20 05:20 White Blood Count 20.9 x10^3/uL (4.0-11.0) Red Blood Count 4.28 x10^6/uL (3.50-5.40) Hemoglobin 13.5 g/dL (12.0-15.5) Hematocrit 40.0 % (36.0-47.0) Mean Corpuscular Volume 94 fL (79-100) Mean Corpuscular Hemoglobin 32 pg (25-35) Mean Corpuscular Hemoglobin Concent 34 g/dL (31-37) Red Cell Distribution Width 14.2 % (11.5-14.5) Platelet Count 137 x10^3/uL (140-400) Neutrophils (%) (Auto) 80 % (31-73) Lymphocytes (%) (Auto) 11 % (24-48) Monocytes (%) (Auto) 6 % (0-9) Eosinophils (%) (Auto) 3 % (0-3) Basophils (%) (Auto) 1 % (0-3) Neutrophils # (Auto) 16.7 x10^3/uL (1.8-7.7) Lymphocytes # (Auto) 2.3 x10^3/uL (1.0-4.8) Monocytes # (Auto) 1.3 x10^3/uL (0.0-1.1) Eosinophils # (Auto) 0.6 x10^3/uL (0.0-0.7) Basophils # (Auto) 0.1 x10^3/uL (0.0-0.2) Sodium Level 136 mmol/L (136-145) Potassium Level 3.9 mmol/L (3.5-5.1) Chloride Level 98 mmol/L (98-107) Carbon Dioxide Level 31 mmol/L (21-32) Anion Gap 7 (6-14) Blood Urea Nitrogen 29 mg/dL (7-20) Creatinine 0.7 mg/dL (0.6-1.0) Estimated GFR (Cockcroft-Gault) 90.1 Glucose Level 122 mg/dL (70-99) Calcium Level 9.5 mg/dL (8.5-10.1) Medications Active Scripts Medications Dose Route/Sig Max Daily Dose Days Date Category No Known Medications Prior To Admisstion (Info) Each 1 Each 1X 11/13/20 Reported Comments Chest x-ray reviewed 11/25/2020. Diffuse interstitial infiltrates which has worsened. This is consistent with ARDS. Impression . IMPRESSION: 1. Acute hypoxemic respiratory failure./ ALI/ Early ARDS. Oxygenation remains marginal despite maximum oxygen support. 2. COVID-19 viral pneumonia. 3. Abnormal x-ray with worsening bilateral interstitial infiltrates consistent with ARDS. No pleural effusions 4. Possible bacterial pneumonia. 5. Leukocytosis, no fever, likely due to steroids. will taper dose 6. Elevated transaminases. Plan . Updated 11/27 Continue current support Steroids Status post tocilizumab Nutritional support 11/26 Continue present Vapotherm, 100% FiO2 and 40 L flow./ NRM. Despite maximum oxygen support patient's oxygenation status remains marginal. We will transfer to the ICU once bed available. We may use BiPAP at nighttime and as needed. Monitor respiratory status closely for need for intubation. Continue the same, S/P remdesivir, steroids,taper monitor wbc S/P tocilizumaub Discussed with RN. Discussed with JUNAID Castelan MD Nov 27, 2020 10:31
[2020-11-27] MEDS: STERILE WATER for RESP 1,000 ML BAG. INH PRN (10:38)
[2020-11-27] MEDS: DEXMEDETOMIDINE 400 MCG in IV NORMAL SALINE 100ML 96 ML IV PRN ×2 (10:38→20:56)
[2020-11-27 12:54] LABS: % BANDS 5 % (0-9); % BASOS 1 % (0-3); % EOS 3 % (0-5); % LYMPHS 9 % (24-48); % MONOS 12 % (0-10); % SEGS 70 % (35-66); PLT ESTIMATE ADEQUATE (ADEQUATE); POLYCHROMASIA PRESENT
--- NOTE | 2020-11-27 14:00 | PDOC ---
[facility] PROGRESS NOTE Date of Service DOS: DATE: 11/27/20 TIME: 13:59 Chief Complaint Chief Complaint A/P: Acute hypoxic respiratory failure COVID-19 pneumonia - s/p remdesivir, tocilizumab. Continuing on steroids Elevated creatinine concerning for rhabdomyolysis versus myopathy Lymphopenia Transaminitis Hypokalemia Moderate protein malnutrition Thrush - noted 11/24. likely due to steroids, antibiotics, diflucan x1, throat spray 37 MIN PT exam, chart review, > 50% of time spent with exam, chart review, pt care coordination. History of Present Illness History of Present Illness 11/27/2020 Patient seen and examined in the ICU she is still on Vapotherm 40 L 100% FiO2 discussed with RN chart reviewed Despite diuresis and good urine output back on 40 L/min 100% FiO2 Vapotherm with supplemental facemask O2. Discussed with patient she has been getting ICU level care her entire hospital stay and an ICU bed may be available. Discussed with pulmonology she requires ICU. She is asking if she can just go home instead. Advised of the risks of . Discussed with her and her significant other Orion on the phone, she is amenable to ICU transfer. 11/25: WBC 23.8 metabolic panel within normal limits. Afebrile. Now requiring 40 L/min Vapotherm, had a bad night, overheated, anxious. CXR worse, given lasix. 11/24: Afebrile. Sore throat today, appears to be thrush. O2 saturations 91% on 30 l/min 100 FiO2 vapotherm. Berumen out. 11/23: Afebrile. Slept again overnight. O2 saturations 91% on 30 L/min 100% FiO2. She is much more alert today less anxious. Eating a little more. Wants to get up to chair and have Berumen catheter removed today and start with therapy. 11/22: Afebrile. Slept overnight. O2 saturations minimally improved now on 30 L/min 100% FiO2 Vapotherm with saturations 91 to 93%. She is a little less anxious. Still eating very little. Very weak. 11/21: Overnight with desaturations still requiring 40 L/min 100% FiO2 Vapotherm with supplemental facemask O2 15 L. Significant desaturations with movement. Not eating much at all. Intermittently confused when she takes off her O2 11/20: Overnight was chewing on her oxygen to try to increase the levels. She is seen with O2 saturations 92% on 40 L/min 100% FiO2 Vapotherm. She is able to transition to chair but has significant O2 desaturations. Is eating but not 1% of her meals. No diarrhea at this time. 11/19/2020: Pt seen and examined. Discussed with RN. Chart reviewed. On Vapotherm 40L 100% FiO2. On 15L O2 per non-rebreather. O2 saturation at 98%. Pt up in chair and reports feeling better today. 11/18/2020: Pt seen and examined. Discussed with RN. Chart reviewed. On Vapotherm 40L 100% FiO2. On 15L O2 per non-rebreather. Pt resting, NAD. Nurse reports pt was able to sit on edge of bed and eat breakfast without desaturation of O2. 11/17/2020: Pt seen and examined. Chart reviewed. Discussed with RN. On Vapotherm 40L 100% FiO2. On 15L O2 per non-rebreather. Pt reports increased appetite, feeling better. 11/16/2020: Pt seen and examined. Discussed with RN. Chart reviewed. On Vapotherm 40L 100% FiO2. 11/15/2020: Pt seen and examined. Discussed with RN. Chart reviewed. On Vapotherm 40L 100% FiO2. 11/14/2020: Pt seen and examined. Discussed with RN. Chart reviewed. On 4 L O2 per NC. Vitals/I&O Vitals/I&O: Vital Signs Date Time Temp Pulse Resp B/P (MAP) Pulse Ox O2 Delivery O2 Flow Rate FiO2 11/27/20 13:38 98 VAPOTHERM 40.0 11/27/20 12:00 98.2 82 34 101/64 (76) 98.2 I & O 11/26/20 11/26/20 11/27/20 15:00 23:00 07:00 Intake Total 150 ml 100 ml Output Total 1450 ml 480 ml 235 ml Balance -1300 ml -380 ml -235 ml Physical Exam General: Alert, Cooperative, No acute distress Lungs: Crackles Extremities: No clubbing Skin: No rashes Labs Labs: Laboratory Tests Test 11/27/20 05:20 White Blood Count 20.9 x10^3/uL (4.0-11.0) Red Blood Count 4.28 x10^6/uL (3.50-5.40) Hemoglobin 13.5 g/dL (12.0-15.5) Hematocrit 40.0 % (36.0-47.0) Mean Corpuscular Volume 94 fL (79-100) Mean Corpuscular Hemoglobin 32 pg (25-35) Mean Corpuscular Hemoglobin Concent 34 g/dL (31-37) Red Cell Distribution Width 14.2 % (11.5-14.5) Platelet Count 137 x10^3/uL (140-400) Neutrophils (%) (Auto) 80 % (31-73) Lymphocytes (%) (Auto) 11 % (24-48) Monocytes (%) (Auto) 6 % (0-9) Eosinophils (%) (Auto) 3 % (0-3) Basophils (%) (Auto) 1 % (0-3) Neutrophils # (Auto) 16.7 x10^3/uL (1.8-7.7) Lymphocytes # (Auto) 2.3 x10^3/uL (1.0-4.8) Monocytes # (Auto) 1.3 x10^3/uL (0.0-1.1) Eosinophils # (Auto) 0.6 x10^3/uL (0.0-0.7) Basophils # (Auto) 0.1 x10^3/uL (0.0-0.2) Segmented Neutrophils % 70 % (35-66) Band Neutrophils % 5 % (0-9) Lymphocytes % 9 % (24-48) Monocytes % 12 % (0-10) Eosinophils % 3 % (0-5) Basophils % 1 % (0-3) Platelet Estimate Adequate (ADEQUATE) Polychromasia Present Sodium Level 136 mmol/L (136-145) Potassium Level 3.9 mmol/L (3.5-5.1) Chloride Level 98 mmol/L (98-107) Carbon Dioxide Level 31 mmol/L (21-32) Anion Gap 7 (6-14) Blood Urea Nitrogen 29 mg/dL (7-20) Creatinine 0.7 mg/dL (0.6-1.0) Estimated GFR (Cockcroft-Gault) 90.1 Glucose Level 122 mg/dL (70-99) Calcium Level 9.5 mg/dL (8.5-10.1) Assessment and Plan Assessmemt and Plan Problems Medical Problems: (1) Community acquired pneumonia Status: Acute (2) Hypokalemia Status: Acute (3) Hypoxia Status: Acute (4) Lab test positive for detection of COVID-19 virus Status: Acute Status post tocilizumab Comment Review of Relevant I have reviewed the following items lenny (where applicable) has been applied. Medications: Current Medications Medications (Trade) Dose Ordered Sig/Mona Route PRN Reason Start Time Stop Time Status Last Admin Dose Admin Furosemide (Lasix) 20 mg [id number] IVP 11/26/20 14:00 11/28/20 14:01 11/27/20 13:35 Dexmedetomidine HCl 400 mcg/ Sodium Chloride 100 ml @ 4.9 mls/hr CONT PRN IV PER PROTOCOL 11/26/20 17:15 11/27/20 10:38 Justifications for Admission Other Justification COVID-19 positive test (U07.1, COVID-19) with Acute Pneumonia (J12.89, Other viral pneumonia) (If respiratory failure or sepsis present, add as separate assessment) SMITHA CLEVELAND III DO Nov 27, 2020 14:00
--- NOTE | 2020-11-27 14:11 | PDOC ---
[facility] [facility] PROGRESS NOTE Date of Service DOS: DATE: 11/27/20 TIME: 14:01 Chief Complaint Chief Complaint A/P: Acute hypoxic respiratory failure COVID-19 pneumonia - s/p remdesivir, tocilizumab. Continuing on steroids Elevated creatinine concerning for rhabdomyolysis versus myopathy Lymphopenia Transaminitis Hypokalemia Moderate protein malnutrition Thrush - noted 11/24. likely due to steroids, antibiotics, diflucan x1, throat spray 37 MIN PT exam, chart review, > 50% of time spent with exam, chart review, pt care coordination. History of Present Illness History of Present Illness 11/27/2020 Patient seen and examined in the ICU she is still on Vapotherm 40 L 100% FiO2 discussed with RN chart reviewed Despite diuresis and good urine output back on 40 L/min 100% FiO2 Vapotherm with supplemental facemask O2. Discussed with patient she has been getting ICU level care her entire hospital stay and an ICU bed may be available. Discussed with pulmonology she requires ICU. She is asking if she can just go home instead. Advised of the risks of . Discussed with her and her significant other Orion on the phone, she is amenable to ICU transfer. 11/25: WBC 23.8 metabolic panel within normal limits. Afebrile. Now requiring 40 L/min Vapotherm, had a bad night, overheated, anxious. CXR worse, given lasix. 11/24: Afebrile. Sore throat today, appears to be thrush. O2 saturations 91% on 30 l/min 100 FiO2 vapotherm. Berumen out. 11/23: Afebrile. Slept again overnight. O2 saturations 91% on 30 L/min 100% FiO2. She is much more alert today less anxious. Eating a little more. Wants to get up to chair and have Berumen catheter removed today and start with therapy. 11/22: Afebrile. Slept overnight. O2 saturations minimally improved now on 30 L/min 100% FiO2 Vapotherm with saturations 91 to 93%. She is a little less anxious. Still eating very little. Very weak. 11/21: Overnight with desaturations still requiring 40 L/min 100% FiO2 Vapotherm with supplemental facemask O2 15 L. Significant desaturations with movement. Not eating much at all. Intermittently confused when she takes off her O2 11/20: Overnight was chewing on her oxygen to try to increase the levels. She is seen with O2 saturations 92% on 40 L/min 100% FiO2 Vapotherm. She is able to transition to chair but has significant O2 desaturations. Is eating but not 1% of her meals. No diarrhea at this time. 11/19/2020: Pt seen and examined. Discussed with RN. Chart reviewed. On Vapotherm 40L 100% FiO2. On 15L O2 per non-rebreather. O2 saturation at 98%. Pt up in chair and reports feeling better today. 11/18/2020: Pt seen and examined. Discussed with RN. Chart reviewed. On Vapotherm 40L 100% FiO2. On 15L O2 per non-rebreather. Pt resting, NAD. Nurse reports pt was able to sit on edge of bed and eat breakfast without desaturation of O2. 11/17/2020: Pt seen and examined. Chart reviewed. Discussed with RN. On Vapotherm 40L 100% FiO2. On 15L O2 per non-rebreather. Pt reports increased appetite, feeling better. 11/16/2020: Pt seen and examined. Discussed with RN. Chart reviewed. On Vapotherm 40L 100% FiO2. 11/15/2020: Pt seen and examined. Discussed with RN. Chart reviewed. On Vapotherm 40L 100% FiO2. 11/14/2020: Pt seen and examined. Discussed with RN. Chart reviewed. On 4 L O2 per NC. Vitals/I&O Vitals/I&O: Vital Signs Date Time Temp Pulse Resp B/P (MAP) Pulse Ox O2 Delivery O2 Flow Rate FiO2 11/27/20 13:38 98 VAPOTHERM 40.0 11/27/20 12:00 98.2 82 34 101/64 (76) 98.2 I & O 11/26/20 11/26/20 11/27/20 15:00 23:00 07:00 Intake Total 150 ml 100 ml Output Total 1450 ml 480 ml 235 ml Balance -1300 ml -380 ml -235 ml Physical Exam General: Alert, Cooperative, No acute distress Lungs: Crackles Extremities: No clubbing Skin: No rashes Labs Labs: Laboratory Tests Test 11/27/20 05:20 White Blood Count 20.9 x10^3/uL (4.0-11.0) Red Blood Count 4.28 x10^6/uL (3.50-5.40) Hemoglobin 13.5 g/dL (12.0-15.5) Hematocrit 40.0 % (36.0-47.0) Mean Corpuscular Volume 94 fL (79-100) Mean Corpuscular Hemoglobin 32 pg (25-35) Mean Corpuscular Hemoglobin Concent 34 g/dL (31-37) Red Cell Distribution Width 14.2 % (11.5-14.5) Platelet Count 137 x10^3/uL (140-400) Neutrophils (%) (Auto) 80 % (31-73) Lymphocytes (%) (Auto) 11 % (24-48) Monocytes (%) (Auto) 6 % (0-9) Eosinophils (%) (Auto) 3 % (0-3) Basophils (%) (Auto) 1 % (0-3) Neutrophils # (Auto) 16.7 x10^3/uL (1.8-7.7) Lymphocytes # (Auto) 2.3 x10^3/uL (1.0-4.8) Monocytes # (Auto) 1.3 x10^3/uL (0.0-1.1) Eosinophils # (Auto) 0.6 x10^3/uL (0.0-0.7) Basophils # (Auto) 0.1 x10^3/uL (0.0-0.2) Segmented Neutrophils % 70 % (35-66) Band Neutrophils % 5 % (0-9) Lymphocytes % 9 % (24-48) Monocytes % 12 % (0-10) Eosinophils % 3 % (0-5) Basophils % 1 % (0-3) Platelet Estimate Adequate (ADEQUATE) Polychromasia Present Sodium Level 136 mmol/L (136-145) Potassium Level 3.9 mmol/L (3.5-5.1) Chloride Level 98 mmol/L (98-107) Carbon Dioxide Level 31 mmol/L (21-32) Anion Gap 7 (6-14) Blood Urea Nitrogen 29 mg/dL (7-20) Creatinine 0.7 mg/dL (0.6-1.0) Estimated GFR (Cockcroft-Gault) 90.1 Glucose Level 122 mg/dL (70-99) Calcium Level 9.5 mg/dL (8.5-10.1) Assessment and Plan Assessmemt and Plan Problems Medical Problems: (1) Community acquired pneumonia Status: Acute (2) Hypokalemia Status: Acute (3) Hypoxia Status: Acute (4) Lab test positive for detection of COVID-19 virus Status: Acute Acute hypoxic respiratory failure COVID-19 pneumonia Elevated creatinine concerning for rhabdomyolysis versus myopathy Lymphopenia Transaminitis Hypokalemia Moderate protein malnutrition Plan: COVID protocol (Zosyn, Doxycycline, Multivitamin w/minerals, ASA, Solu-medrol, Robitussin w/codeine, monoclonal) Trying to wean down her O2 requirements Encourage po intake Appreciate subspecialty input (Pulm) Cardiac monitoring DVT prophylaxis Trend labs Full code Prognosis guarded CC time 31 minutes Comment Review of Relevant I have reviewed the following items lenny (where applicable) has been applied. Medications: Current Medications Medications (Trade) Dose Ordered Sig/Mona Route PRN Reason Start Time Stop Time Status Last Admin Dose Admin Dexmedetomidine HCl 400 mcg/ Sodium Chloride 100 ml @ 4.9 mls/hr CONT PRN IV PER PROTOCOL 11/26/20 17:15 11/27/20 10:38 Justifications for Admission Other Justification COVID-19 positive test (U07.1, COVID-19) with Acute Pneumonia (J12.89, Other viral pneumonia) (If respiratory failure or sepsis present, add as separate assessment) SMITHA CLEVELAND III DO Nov 27, 2020 14:11
[2020-11-27] MEDS: DOCUSATE SODIUM 100 MG CAPSULE. PO PRN (15:42)
[2020-11-27] MEDS: OXYMETAZOLINE 0.05% NASAL SPRAY 30ML BOTTLE. NS PRN (19:50)
[2020-11-27] MEDS: SODIUM CHLORIDE 0.65% NASAL SPRAY 45ML BOTTLE. NS PRN (19:50)
[2020-11-27] MEDS: ENOXAPARIN 40 MG/0.4 ML SYRINGE. SQ SCH (20:28)
[2020-11-28] VITALS (23 sets, daily range): BP systolic 73–108; BP diastolic 58–83
[2020-11-28] MEDS: STERILE WATER for RESP 1,000 ML BAG. INH PRN ×2 (00:06→11:55)
[2020-11-28] MEDS: PIPERACILLIN/TAZOBACTAM 3.375 GM in IV NORMAL SALINE 50ML 50 ML IV SCH ×4 (00:07→17:53)
[2020-11-28 05:43] LABS: CALCIUM 9.1 mg/dL (8.5-10.1); CREATININE 0.6 mg/dL (0.6-1.0); GFR 107.6; POTASSIUM 3.3 mmol/L (3.5-5.1)
[2020-11-28] MEDS: POTASSIUM CHLORIDE 20MEQ 100 ML IV SCH ×2 (07:36→08:48)
[2020-11-28] MEDS: MAGNESIUM OXIDE 400 MG TABLET PO SCH (08:45)
[2020-11-28] MEDS: MULTIVITAMIN with MINERAL TABLET. PO SCH (08:45)
[2020-11-28] MEDS: LACTOBACILLUS RHAMNOSUS GG 1 CAPSULE. PO SCH ×2 (08:45→21:14)
[2020-11-28] MEDS: ZINC SULFATE 220 MG CAPSULE. PO SCH (08:45)
[2020-11-28] MEDS: PANTOPRAZOLE 40 MG TABLET.DR. PO SCH (08:46)
[2020-11-28] MEDS: SENNOSIDES 8.6 MG TABLET PO PRN (08:46)
[2020-11-28] MEDS: DOCUSATE SODIUM 100 MG CAPSULE. PO PRN (08:46)
[2020-11-28] MEDS: THIAMINE 100 MG TABLET. PO SCH (08:46)
[2020-11-28] MEDS: NYSTATIN 100,000 UNITS/ML 5 ML ORAL.SUSP. SWSW SCH ×4 (08:46→21:15)
[2020-11-28] MEDS: ASPIRIN CHEWABLE 81 MG TABLET. PO SCH (08:46)
--- NOTE | 2020-11-28 08:46 | PDOC ---
PULMONARY PROGRESS NOTES DATE: 11/28/20 TIME: 08:46 Subjective No new events overnight continues to require oxygen at high flow, 100% FiO2, 40 L Vapotherm Vitals Vital Signs Date Time Temp Pulse Resp B/P (MAP) Pulse Ox O2 Delivery O2 Flow Rate FiO2 11/28/20 08:18 97 VAPOTHERM 40.0 11/28/20 06:00 86 42 103/68 (80) 11/28/20 04:00 98.3 98.3 Comments On visual inspection, no distress nc at rrr no accessory muscle use no rash Lungs: Crackles Labs Laboratory Tests Test 11/27/20 05:20 11/28/20 05:15 White Blood Count 20.9 x10^3/uL (4.0-11.0) Red Blood Count 4.28 x10^6/uL (3.50-5.40) Hemoglobin 13.5 g/dL (12.0-15.5) Hematocrit 40.0 % (36.0-47.0) Mean Corpuscular Volume 94 fL (79-100) Mean Corpuscular Hemoglobin 32 pg (25-35) Mean Corpuscular Hemoglobin Concent 34 g/dL (31-37) Red Cell Distribution Width 14.2 % (11.5-14.5) Platelet Count 137 x10^3/uL (140-400) Neutrophils (%) (Auto) 80 % (31-73) Lymphocytes (%) (Auto) 11 % (24-48) Monocytes (%) (Auto) 6 % (0-9) Eosinophils (%) (Auto) 3 % (0-3) Basophils (%) (Auto) 1 % (0-3) Neutrophils # (Auto) 16.7 x10^3/uL (1.8-7.7) Lymphocytes # (Auto) 2.3 x10^3/uL (1.0-4.8) Monocytes # (Auto) 1.3 x10^3/uL (0.0-1.1) Eosinophils # (Auto) 0.6 x10^3/uL (0.0-0.7) Basophils # (Auto) 0.1 x10^3/uL (0.0-0.2) Segmented Neutrophils % 70 % (35-66) Band Neutrophils % 5 % (0-9) Lymphocytes % 9 % (24-48) Monocytes % 12 % (0-10) Eosinophils % 3 % (0-5) Basophils % 1 % (0-3) Platelet Estimate Adequate (ADEQUATE) Polychromasia Present Sodium Level 136 mmol/L (136-145) 136 mmol/L (136-145) Potassium Level 3.9 mmol/L (3.5-5.1) 3.3 mmol/L (3.5-5.1) Chloride Level 98 mmol/L (98-107) 98 mmol/L (98-107) Carbon Dioxide Level 31 mmol/L (21-32) 33 mmol/L (21-32) Anion Gap 7 (6-14) 5 (6-14) Blood Urea Nitrogen 29 mg/dL (7-20) 23 mg/dL (7-20) Creatinine 0.7 mg/dL (0.6-1.0) 0.6 mg/dL (0.6-1.0) Estimated GFR (Cockcroft-Gault) 90.1 107.6 Glucose Level 122 mg/dL (70-99) 123 mg/dL (70-99) Calcium Level 9.5 mg/dL (8.5-10.1) 9.1 mg/dL (8.5-10.1) Laboratory Tests Test 11/28/20 05:15 Sodium Level 136 mmol/L (136-145) Potassium Level 3.3 mmol/L (3.5-5.1) Chloride Level 98 mmol/L (98-107) Carbon Dioxide Level 33 mmol/L (21-32) Anion Gap 5 (6-14) Blood Urea Nitrogen 23 mg/dL (7-20) Creatinine 0.6 mg/dL (0.6-1.0) Estimated GFR (Cockcroft-Gault) 107.6 Glucose Level 123 mg/dL (70-99) Calcium Level 9.1 mg/dL (8.5-10.1) Medications Active Scripts Medications Dose Route/Sig Max Daily Dose Days Date Category No Known Medications Prior To Admisstion (Info) Each 1 Each 1X 11/13/20 Reported Comments Chest x-ray reviewed 11/25/2020. Diffuse interstitial infiltrates which has worsened. This is consistent with ARDS. Impression . IMPRESSION: 1. Acute hypoxemic respiratory failure./ ALI/ Early ARDS. Oxygenation remains marginal despite maximum oxygen support. 2. COVID-19 viral pneumonia. 3. Abnormal x-ray with worsening bilateral interstitial infiltrates consistent with ARDS. No pleural effusions 4. Possible bacterial pneumonia. 5. Leukocytosis, no fever, likely due to steroids. will taper dose 6. Elevated transaminases. Plan . Updated 11/28 Continue current oxygen support Steroids Received tocilizumab Nutritional support Received remdesivir Updated 11/27 Continue current support Steroids Status post tocilizumab Nutritional support JUNAID PISANO MD Nov 28, 2020 08:46
[2020-11-28] MEDS: ASCORBIC ACID 1,000 MG TABLET PO SCH ×3 (08:47→21:13)
[2020-11-28] MEDS: FLUTICASONE 50MCG/NASAL SPRAY 16GM BOTTLE. NS SCH (08:47)
[2020-11-28] MEDS: FUROSEMIDE 20 MG/2 ML VIAL. IVP SCH ×2 (08:47→13:32)
[2020-11-28] MEDS: DEXAMETHASONE SOD PHOS 4 MG/ML VIAL IVP SCH (08:47)
[2020-11-28] MEDS: DOXYCYCLINE HYCLATE 100 MG in IV DEXTROSE 5% 100ML 100 ML IV SCH ×2 (08:47→21:13)
[2020-11-28] MEDS: AA 4.25 %/CALCIUM/LYTES/D5W 1,000 ML IV SCH (10:38)
--- NOTE | 2020-11-28 11:18 | PDOC ---
[facility] [facility] PROGRESS NOTE Date of Service DOS: DATE: 11/28/20 TIME: 11:12 Chief Complaint Chief Complaint A/P: Acute hypoxic respiratory failure COVID-19 pneumonia - s/p remdesivir, tocilizumab. Continuing on steroids Elevated creatinine concerning for rhabdomyolysis versus myopathy Lymphopenia Transaminitis Hypokalemia Moderate protein malnutrition Thrush - noted 11/24. likely due to steroids, antibiotics, diflucan x1, throat spray History of Present Illness History of Present Illness 11/28/2020: Pt was seen in ICU Resting with no apparent distress SpO2 98% while on 40L vapotherm. Chart reviewed. Discussed with RN. 30 MIN PT exam, chart review. > 50% of time spent with exam, chart review, pt care coordination. 11/27/2020 Patient seen and examined in the ICU she is still on Vapotherm 40 L 100% FiO2 discussed with RN chart reviewed Despite diuresis and good urine output back on 40 L/min 100% FiO2 Vapotherm with supplemental facemask O2. Discussed with patient she has been getting ICU level care her entire hospital stay and an ICU bed may be available. Discussed with pulmonology she requires ICU. She is asking if she can just go home instead. Advised of the risks of . Discussed with her and her significant other Orion on the phone, she is amenable to ICU transfer. 11/25: WBC 23.8 metabolic panel within normal limits. Afebrile. Now requiring 40 L/min Vapotherm, had a bad night, overheated, anxious. CXR worse, given lasix. 11/24: Afebrile. Sore throat today, appears to be thrush. O2 saturations 91% on 30 l/min 100 FiO2 vapotherm. Berumen out. 11/23: Afebrile. Slept again overnight. O2 saturations 91% on 30 L/min 100% FiO2. She is much more alert today less anxious. Eating a little more. Wants to get up to chair and have Berumen catheter removed today and start with therapy. 11/22: Afebrile. Slept overnight. O2 saturations minimally improved now on 30 L/min 100% FiO2 Vapotherm with saturations 91 to 93%. She is a little less anxious. Still eating very little. Very weak. 11/21: Overnight with desaturations still requiring 40 L/min 100% FiO2 Vapotherm with supplemental facemask O2 15 L. Significant desaturations with movement. Not eating much at all. Intermittently confused when she takes off her O2 11/20: Overnight was chewing on her oxygen to try to increase the levels. She is seen with O2 saturations 92% on 40 L/min 100% FiO2 Vapotherm. She is able to transition to chair but has significant O2 desaturations. Is eating but not 1% of her meals. No diarrhea at this time. 11/19/2020: Pt seen and examined. Discussed with RN. Chart reviewed. On Vapotherm 40L 100% FiO2. On 15L O2 per non-rebreather. O2 saturation at 98%. Pt up in chair and reports feeling better today. 11/18/2020: Pt seen and examined. Discussed with RN. Chart reviewed. On Vapotherm 40L 100% FiO2. On 15L O2 per non-rebreather. Pt resting, NAD. Nurse reports pt was able to sit on edge of bed and eat breakfast without desaturation of O2. 11/17/2020: Pt seen and examined. Chart reviewed. Discussed with RN. On Vapotherm 40L 100% FiO2. On 15L O2 per non-rebreather. Pt reports increased appetite, feeling better. 11/16/2020: Pt seen and examined. Discussed with RN. Chart reviewed. On Vapotherm 40L 100% FiO2. 11/15/2020: Pt seen and examined. Discussed with RN. Chart reviewed. On Vapotherm 40L 100% FiO2. 11/14/2020: Pt seen and examined. Discussed with RN. Chart reviewed. On 4 L O2 per NC. Vitals/I&O Vitals/I&O: Vital Signs Date Time Temp Pulse Resp B/P (MAP) Pulse Ox O2 Delivery O2 Flow Rate FiO2 11/28/20 10:14 98 VAPOTHERM 40.0 11/28/20 06:00 86 42 103/68 (80) 11/28/20 04:00 98.3 98.3 I & O 11/27/20 11/27/20 11/28/20 15:00 23:00 07:00 Intake Total 420 ml 1664.79 ml 1460.68 ml Output Total 935 ml 980 ml 580 ml Balance -515 ml 684.79 ml 880.68 ml Physical Exam General: Alert, Cooperative, No acute distress Heart: Regular rate, Normal S1, Normal S2 Lungs: Crackles Extremities: No clubbing Skin: No rashes Labs Labs: Laboratory Tests Test 11/28/20 05:15 Sodium Level 136 mmol/L (136-145) Potassium Level 3.3 mmol/L (3.5-5.1) Chloride Level 98 mmol/L (98-107) Carbon Dioxide Level 33 mmol/L (21-32) Anion Gap 5 (6-14) Blood Urea Nitrogen 23 mg/dL (7-20) Creatinine 0.6 mg/dL (0.6-1.0) Estimated GFR (Cockcroft-Gault) 107.6 Glucose Level 123 mg/dL (70-99) Calcium Level 9.1 mg/dL (8.5-10.1) Review of Systems Review of Systems: SOA Fatigue Assessment and Plan Assessmemt and Plan Problems Medical Problems: (1) Community acquired pneumonia Status: Acute (2) Hypokalemia Status: Acute (3) Hypoxia Status: Acute (4) Lab test positive for detection of COVID-19 virus Status: Acute A/P: Acute hypoxic respiratory failure COVID-19 pneumonia - s/p remdesivir, tocilizumab. Continuing on steroids Elevated creatinine concerning for rhabdomyolysis versus myopathy Lymphopenia Transaminitis Hypokalemia Moderate protein malnutrition Thrush - noted 11/24. likely due to steroids, antibiotics, diflucan x1, throat spray Plan: COVID protocol (Zosyn, Doxycycline, Multivitamin w/minerals, ASA, Solu-medrol, Robitussin w/codeine, monoclonal antibodies) Trying to wean down her O2 requirements Encourage PO intake Cardiac monitoring DVT prophylaxis Trend labs Appreciate subspecialty input (Pulmonology) Full code Prognosis guarded CC time 31 minutes Comment Review of Relevant I have reviewed the following items lenny (where applicable) has been applied. Medications: Current Medications Medications (Trade) Dose Ordered Sig/Mnoa Route PRN Reason Start Time Stop Time Status Last Admin Dose Admin Potassium Chloride/Water 100 ml @ 100 mls/hr Q1H IV 11/28/20 08:00 11/28/20 09:59 DC 11/28/20 08:48 Justifications for Admission Other Justification COVID-19 positive test (U07.1, COVID-19) with Acute Pneumonia (J12.89, Other viral pneumonia) (If respiratory failure or sepsis present, add as separate assessment) SMITHA CLEVELAND III DO Nov 28, 2020 11:18
--- NOTE | 2020-11-28 11:45 | NUR ---
SS following up with discharge planning. SS reviewed pt chart and discussed with pt RN. Pt is currently on Vapotherm and Non-Rebreather at 100%. COVID19 positive. Pt on IV Decadron, IV Zosyn, IV Doxycycline, and Clinimix. Not stable. Self pay. Med Assist following. SS will continue to follow for discharge planning.
[2020-11-28] MEDS: DEXMEDETOMIDINE 400 MCG in IV NORMAL SALINE 100ML 96 ML IV PRN (13:32)
[2020-11-28] MEDS: ENOXAPARIN 40 MG/0.4 ML SYRINGE. SQ SCH (21:13)
[2020-11-29] VITALS (13 sets, daily range): BP systolic 84–132; BP diastolic 56–71
[2020-11-29] MEDS: AA 4.25 %/CALCIUM/LYTES/D5W 1,000 ML IV SCH (00:54)
[2020-11-29] MEDS: PIPERACILLIN/TAZOBACTAM 3.375 GM in IV NORMAL SALINE 50ML 50 ML IV SCH ×5 (00:55→23:52)
[2020-11-29] MEDS: DEXMEDETOMIDINE 400 MCG in IV NORMAL SALINE 100ML 96 ML IV PRN (02:10)
[2020-11-29 06:21] LABS: BASO % 0 % (0-3); EOS # 0.7 x10^3/uL (0.0-0.7); EOS % 5 % (0-3); HEMATOCRIT 35.2 % (36.0-47.0); HEMOGLOBIN 12.2 g/dL (12.0-15.5); LYMPH % 14 % (24-48); MEAN CORPUSCULAR HEMOGLOBIN 32 pg (25-35); MEAN CORPUSCULAR HGB CONC 35 g/dL (31-37); MEAN CORPUSCULAR VOLUME 91 fL (79-100); MONO % 7 % (0-9); NEUT % 75 % (31-73); PLATELET COUNT 146 x10^3/uL (140-400); RED BLOOD COUNT 3.86 x10^6/uL (3.50-5.40); RED CELL DISTRIBUTION WIDTH 13.8 % (11.5-14.5); WHITE BLOOD COUNT 14.8 x10^3/uL (4.0-11.0)
[2020-11-29 06:44] LABS: CALCIUM 8.6 mg/dL (8.5-10.1); CREATININE 0.7 mg/dL (0.6-1.0); GFR 90.1; POTASSIUM 3.2 mmol/L (3.5-5.1)
[2020-11-29] MEDS ORDERED: PHENOL ORAL SPRAY 177ML BOTTLE. PO PRN (08:00)
--- NOTE | 2020-11-29 08:40 | PDOC ---
PULMONARY PROGRESS NOTES DATE: 11/29/20 TIME: 08:40 Subjective Patient feels better, currently on 35 L, 90% FiO2 Vitals Vital Signs Date Time Temp Pulse Resp B/P (MAP) Pulse Ox O2 Delivery O2 Flow Rate FiO2 11/29/20 08:08 96 VAPOTHERM 35.0 11/29/20 07:00 90 40 104/56 (72) 11/29/20 04:00 98.6 98.6 Comments On visual inspection, no distress nc at rrr no accessory muscle use no rash Lungs: Crackles Labs Laboratory Tests Test 11/28/20 05:15 11/29/20 06:15 Sodium Level 136 mmol/L (136-145) 138 mmol/L (136-145) Potassium Level 3.3 mmol/L (3.5-5.1) 3.2 mmol/L (3.5-5.1) Chloride Level 98 mmol/L (98-107) 99 mmol/L (98-107) Carbon Dioxide Level 33 mmol/L (21-32) 33 mmol/L (21-32) Anion Gap 5 (6-14) 6 (6-14) Blood Urea Nitrogen 23 mg/dL (7-20) 16 mg/dL (7-20) Creatinine 0.6 mg/dL (0.6-1.0) 0.7 mg/dL (0.6-1.0) Estimated GFR (Cockcroft-Gault) 107.6 90.1 Glucose Level 123 mg/dL (70-99) 111 mg/dL (70-99) Calcium Level 9.1 mg/dL (8.5-10.1) 8.6 mg/dL (8.5-10.1) White Blood Count 14.8 x10^3/uL (4.0-11.0) Red Blood Count 3.86 x10^6/uL (3.50-5.40) Hemoglobin 12.2 g/dL (12.0-15.5) Hematocrit 35.2 % (36.0-47.0) Mean Corpuscular Volume 91 fL (79-100) Mean Corpuscular Hemoglobin 32 pg (25-35) Mean Corpuscular Hemoglobin Concent 35 g/dL (31-37) Red Cell Distribution Width 13.8 % (11.5-14.5) Platelet Count 146 x10^3/uL (140-400) Neutrophils (%) (Auto) 75 % (31-73) Lymphocytes (%) (Auto) 14 % (24-48) Monocytes (%) (Auto) 7 % (0-9) Eosinophils (%) (Auto) 5 % (0-3) Basophils (%) (Auto) 0 % (0-3) Neutrophils # (Auto) 11.0 x10^3/uL (1.8-7.7) Lymphocytes # (Auto) 2.0 x10^3/uL (1.0-4.8) Monocytes # (Auto) 1.0 x10^3/uL (0.0-1.1) Eosinophils # (Auto) 0.7 x10^3/uL (0.0-0.7) Basophils # (Auto) 0.0 x10^3/uL (0.0-0.2) Laboratory Tests Test 11/29/20 06:15 White Blood Count 14.8 x10^3/uL (4.0-11.0) Red Blood Count 3.86 x10^6/uL (3.50-5.40) Hemoglobin 12.2 g/dL (12.0-15.5) Hematocrit 35.2 % (36.0-47.0) Mean Corpuscular Volume 91 fL (79-100) Mean Corpuscular Hemoglobin 32 pg (25-35) Mean Corpuscular Hemoglobin Concent 35 g/dL (31-37) Red Cell Distribution Width 13.8 % (11.5-14.5) Platelet Count 146 x10^3/uL (140-400) Neutrophils (%) (Auto) 75 % (31-73) Lymphocytes (%) (Auto) 14 % (24-48) Monocytes (%) (Auto) 7 % (0-9) Eosinophils (%) (Auto) 5 % (0-3) Basophils (%) (Auto) 0 % (0-3) Neutrophils # (Auto) 11.0 x10^3/uL (1.8-7.7) Lymphocytes # (Auto) 2.0 x10^3/uL (1.0-4.8) Monocytes # (Auto) 1.0 x10^3/uL (0.0-1.1) Eosinophils # (Auto) 0.7 x10^3/uL (0.0-0.7) Basophils # (Auto) 0.0 x10^3/uL (0.0-0.2) Sodium Level 138 mmol/L (136-145) Potassium Level 3.2 mmol/L (3.5-5.1) Chloride Level 99 mmol/L (98-107) Carbon Dioxide Level 33 mmol/L (21-32) Anion Gap 6 (6-14) Blood Urea Nitrogen 16 mg/dL (7-20) Creatinine 0.7 mg/dL (0.6-1.0) Estimated GFR (Cockcroft-Gault) 90.1 Glucose Level 111 mg/dL (70-99) Calcium Level 8.6 mg/dL (8.5-10.1) Medications Active Scripts Medications Dose Route/Sig Max Daily Dose Days Date Category No Known Medications Prior To Admisstion (Info) Each 1 Each 1X 11/13/20 Reported Impression . IMPRESSION: 1. Acute hypoxemic respiratory failure./ ALI/ Early ARDS. Oxygenation remains marginal despite maximum oxygen support. 2. COVID-19 viral pneumonia. 3. Abnormal x-ray with worsening bilateral interstitial infiltrates consistent with ARDS. No pleural effusions 4. Possible bacterial pneumonia. 5. Leukocytosis, no fever, likely due to steroids. will taper dose 6. Elevated transaminases. Plan . Updated 11/29 Continue titrating oxygen down Continue current support Discussed with RT and RN Updated 11/28 Continue current oxygen support Steroids Received tocilizumab Nutritional support Received remdesivir Updated 11/27 Continue current support Steroids Status post tocilizumab Nutritional support JUNAID PISANO MD Nov 29, 2020 08:40
[2020-11-29] MEDS ORDERED: POTASSIUM CL 40MEQ IN 0.9%NACL 1,000 ML IV ONE ×2 (08:45→09:00)
--- NOTE | 2020-11-29 08:48 | PDOC ---
[facility] PROGRESS NOTE Date of Service DOS: DATE: 11/29/20 TIME: 08:38 Chief Complaint Chief Complaint A/P: Acute hypoxic respiratory failure COVID-19 pneumonia - s/p remdesivir, tocilizumab. Continuing on steroids Elevated creatinine concerning for rhabdomyolysis versus myopathy Lymphopenia Transaminitis Hypokalemia Moderate protein malnutrition Thrush - noted 11/24. likely due to steroids, antibiotics, diflucan x1, throat spray History of Present Illness History of Present Illness 11/29/2020: Pt was seen and examined in ICU SpO2 96% while on 32L vapotherm and 80% FiO2 Tolerating PO with potato chips at bedside. Resting in NAD Chart reviewed. Discussed with RN. 11/28/2020: Pt was seen in ICU Resting with no apparent distress SpO2 98% while on 40L vapotherm. Chart reviewed. Discussed with RN. 30 MIN PT exam, chart review. > 50% of time spent with exam, chart review, pt care coordination. 11/27/2020 Patient seen and examined in the ICU she is still on Vapotherm 40 L 100% FiO2 discussed with RN chart reviewed Despite diuresis and good urine output back on 40 L/min 100% FiO2 Vapotherm with supplemental facemask O2. Discussed with patient she has been getting ICU level care her entire hospital stay and an ICU bed may be available. Discussed with pulmonology she requires ICU. She is asking if she can just go home instead. Advised of the risks of . Discussed with her and her significant other Orion on the phone, she is amenable to ICU transfer. 11/25: WBC 23.8 metabolic panel within normal limits. Afebrile. Now requiring 40 L/min Vapotherm, had a bad night, overheated, anxious. CXR worse, given lasix. 11/24: Afebrile. Sore throat today, appears to be thrush. O2 saturations 91% on 30 l/min 100 FiO2 vapotherm. Berumen out. 11/23: Afebrile. Slept again overnight. O2 saturations 91% on 30 L/min 100% FiO2. She is much more alert today less anxious. Eating a little more. Wants to get up to chair and have Berumen catheter removed today and start with therapy. 11/22: Afebrile. Slept overnight. O2 saturations minimally improved now on 30 L/min 100% FiO2 Vapotherm with saturations 91 to 93%. She is a little less anxious. Still eating very little. Very weak. 11/21: Overnight with desaturations still requiring 40 L/min 100% FiO2 Vapotherm with supplemental facemask O2 15 L. Significant desaturations with movement. Not eating much at all. Intermittently confused when she takes off her O2 11/20: Overnight was chewing on her oxygen to try to increase the levels. She is seen with O2 saturations 92% on 40 L/min 100% FiO2 Vapotherm. She is able to transition to chair but has significant O2 desaturations. Is eating but not 1% of her meals. No diarrhea at this time. 11/19/2020: Pt seen and examined. Discussed with RN. Chart reviewed. On Vapotherm 40L 100% FiO2. On 15L O2 per non-rebreather. O2 saturation at 98%. Pt up in chair and reports feeling better today. 11/18/2020: Pt seen and examined. Discussed with RN. Chart reviewed. On Vapotherm 40L 100% FiO2. On 15L O2 per non-rebreather. Pt resting, NAD. Nurse reports pt was able to sit on edge of bed and eat breakfast without desaturation of O2. 11/17/2020: Pt seen and examined. Chart reviewed. Discussed with RN. On Vapotherm 40L 100% FiO2. On 15L O2 per non-rebreather. Pt reports increased appetite, feeling better. 11/16/2020: Pt seen and examined. Discussed with RN. Chart reviewed. On Vapotherm 40L 100% FiO2. 11/15/2020: Pt seen and examined. Discussed with RN. Chart reviewed. On Vapotherm 40L 100% FiO2. 11/14/2020: Pt seen and examined. Discussed with RN. Chart reviewed. On 4 L O2 per NC. Vitals/I&O Vitals/I&O: Vital Signs Date Time Temp Pulse Resp B/P (MAP) Pulse Ox O2 Delivery O2 Flow Rate FiO2 11/29/20 08:08 96 VAPOTHERM 35.0 11/29/20 07:00 90 40 104/56 (72) 11/29/20 04:00 98.6 98.6 I & O 11/28/20 11/28/20 11/29/20 15:00 23:00 07:00 Intake Total 1320 ml 1197.3 ml 786 ml Output Total 1100 ml 1175 ml 450 ml Balance 220 ml 22.3 ml 336 ml Physical Exam Physical Exam: Pt laying in bed in NAD SpO2 96% while on 32L vapotherm and 80% FiO2 General: Alert, Oriented X3, Cooperative, No acute distress Heart: Regular rate, Normal S1, Normal S2 Lungs: Clear Abdomen: Soft Extremities: No clubbing, No cyanosis Skin: No rashes, No breakdown, No significant lesion Labs Labs: Laboratory Tests Test 11/29/20 06:15 White Blood Count 14.8 x10^3/uL (4.0-11.0) Red Blood Count 3.86 x10^6/uL (3.50-5.40) Hemoglobin 12.2 g/dL (12.0-15.5) Hematocrit 35.2 % (36.0-47.0) Mean Corpuscular Volume 91 fL (79-100) Mean Corpuscular Hemoglobin 32 pg (25-35) Mean Corpuscular Hemoglobin Concent 35 g/dL (31-37) Red Cell Distribution Width 13.8 % (11.5-14.5) Platelet Count 146 x10^3/uL (140-400) Neutrophils (%) (Auto) 75 % (31-73) Lymphocytes (%) (Auto) 14 % (24-48) Monocytes (%) (Auto) 7 % (0-9) Eosinophils (%) (Auto) 5 % (0-3) Basophils (%) (Auto) 0 % (0-3) Neutrophils # (Auto) 11.0 x10^3/uL (1.8-7.7) Lymphocytes # (Auto) 2.0 x10^3/uL (1.0-4.8) Monocytes # (Auto) 1.0 x10^3/uL (0.0-1.1) Eosinophils # (Auto) 0.7 x10^3/uL (0.0-0.7) Basophils # (Auto) 0.0 x10^3/uL (0.0-0.2) Sodium Level 138 mmol/L (136-145) Potassium Level 3.2 mmol/L (3.5-5.1) Chloride Level 99 mmol/L (98-107) Carbon Dioxide Level 33 mmol/L (21-32) Anion Gap 6 (6-14) Blood Urea Nitrogen 16 mg/dL (7-20) Creatinine 0.7 mg/dL (0.6-1.0) Estimated GFR (Cockcroft-Gault) 90.1 Glucose Level 111 mg/dL (70-99) Calcium Level 8.6 mg/dL (8.5-10.1) Review of Systems Review of Systems: SOA Fatigue Assessment and Plan Assessmemt and Plan Problems Medical Problems: (1) Community acquired pneumonia Status: Acute (2) Hypokalemia Status: Acute (3) Hypoxia Status: Acute (4) Lab test positive for detection of COVID-19 virus Status: Acute A/P: Acute hypoxic respiratory failure COVID-19 pneumonia - s/p remdesivir, tocilizumab. Continuing on steroids Elevated creatinine concerning for rhabdomyolysis versus myopathy Lymphopenia Transaminitis Hypokalemia Moderate protein malnutrition Thrush - noted 11/24. likely due to steroids, antibiotics, diflucan x1, throat spray Plan: COVID protocol (Zosyn, Doxycycline, Multivitamin w/minerals, ASA, Solu-medrol, Robitussin w/codeine, monoclonal antibodies) Provide Potassium 40mEq for K of 3.2 (3.3 yesterday) Trend labs Encourage PO intake Trying to wean down her O2 requirements Provide clotrimazole for mo Supportive care DVT prophylaxis Cardiac monitoring Appreciate subspecialty input (Pulmonology) Full code Prognosis guarded CC time 30 minutes Comment Review of Relevant I have reviewed the following items lenny (where applicable) has been applied. Justifications for Admission Other Justification COVID-19 positive test (U07.1, COVID-19) with Acute Pneumonia (J12.89, Other viral pneumonia) (If respiratory failure or sepsis present, add as separate assessment) SMITHA CLEVELAND III DO Nov 29, 2020 08:48
[2020-11-29] MEDS: PANTOPRAZOLE 40 MG TABLET.DR. PO SCH (08:49)
[2020-11-29] MEDS: LACTOBACILLUS RHAMNOSUS GG 1 CAPSULE. PO SCH ×2 (08:50→19:52)
[2020-11-29] MEDS: CLOTRIMAZOLE 10 MG TROCHE. MM SCH ×4 (08:50→19:53)
[2020-11-29] MEDS: ASPIRIN CHEWABLE 81 MG TABLET. PO SCH (08:50)
[2020-11-29] MEDS: DEXAMETHASONE SOD PHOS 4 MG/ML VIAL IVP SCH (08:50)
[2020-11-29] MEDS: MAGNESIUM OXIDE 400 MG TABLET PO SCH (08:50)
[2020-11-29] MEDS: NYSTATIN 100,000 UNITS/ML 5 ML ORAL.SUSP. SWSW SCH ×4 (08:51→19:53)
[2020-11-29] MEDS: THIAMINE 100 MG TABLET. PO SCH (08:51)
[2020-11-29] MEDS: ASCORBIC ACID 1,000 MG TABLET PO SCH ×3 (08:51→19:52)
[2020-11-29] MEDS: MULTIVITAMIN with MINERAL TABLET. PO SCH (08:51)
[2020-11-29] MEDS: ACETAMINOPHEN 325 MG TABLET. PO PRN (08:52)
[2020-11-29] MEDS: FLUTICASONE 50MCG/NASAL SPRAY 16GM BOTTLE. NS SCH (08:53)
[2020-11-29] MEDS: DOXYCYCLINE HYCLATE 100 MG in IV DEXTROSE 5% 100ML 100 ML IV SCH ×2 (08:54→19:52)
[2020-11-29] MEDS: ZINC SULFATE 220 MG CAPSULE. PO SCH (09:00)
[2020-11-29] MEDS: ALPRAZolam 1 MG TABLET PO PRN ×2 (10:32→19:53)
[2020-11-29] MEDS: STERILE WATER for RESP 1,000 ML BAG. INH PRN (14:16)
--- NOTE | 2020-11-29 15:04 | NUR ---
SS following up with discharge planning. SS reviewed pt chart and discussed with pt RN. Pt is currently on Vapotherm at 30 liters and 70%. COVID19 positive. Pt on IV Decadron, IV Zosyn, and IV Doxycycline. PO diet. Self pay. Med Assist following. PT recommending home. SS will continue to follow for discharge planning.
--- NOTE | 2020-11-29 16:30 | NUR ---
Patient transferred from ICU around 1630 to room 663. Patient VSS, on vapotherm. A&O. Resting in bed. Will continue to monitor.
[2020-11-29] MEDS: ENOXAPARIN 40 MG/0.4 ML SYRINGE. SQ SCH (19:53)
[2020-11-30] MEDS: ALPRAZolam 1 MG TABLET PO PRN ×2 (01:47→22:10)
[2020-11-30 02:47] VITALS: BP 131/74
[2020-11-30] MEDS: CLOTRIMAZOLE 10 MG TROCHE. MM SCH ×5 (05:15→20:36)
[2020-11-30] MEDS: PIPERACILLIN/TAZOBACTAM 3.375 GM in IV NORMAL SALINE 50ML 50 ML IV SCH ×4 (05:15→23:20)
[2020-11-30] MEDS: STERILE WATER for RESP 1,000 ML BAG. INH PRN ×2 (05:15→21:57)
[2020-11-30 06:07] VITALS: BP 117/78
[2020-11-30] MEDS: ASPIRIN CHEWABLE 81 MG TABLET. PO SCH (08:00)
--- NOTE | 2020-11-30 08:44 | PDOC ---
PULMONARY PROGRESS NOTES DATE: 11/30/20 TIME: 08:44 Subjective Feels better, down to 25 L flow 70% FiO2 Vitals Vital Signs Date Time Temp Pulse Resp B/P (MAP) Pulse Ox O2 Delivery O2 Flow Rate FiO2 11/30/20 08:03 98 VAPOTHERM 30.0 11/30/20 06:07 98.7 120 28 117/78 (91) 98.7 Comments On visual inspection, no distress nc at rrr no accessory muscle use no rash Lungs: Clear Labs Laboratory Tests Test 11/29/20 06:15 White Blood Count 14.8 x10^3/uL (4.0-11.0) Red Blood Count 3.86 x10^6/uL (3.50-5.40) Hemoglobin 12.2 g/dL (12.0-15.5) Hematocrit 35.2 % (36.0-47.0) Mean Corpuscular Volume 91 fL (79-100) Mean Corpuscular Hemoglobin 32 pg (25-35) Mean Corpuscular Hemoglobin Concent 35 g/dL (31-37) Red Cell Distribution Width 13.8 % (11.5-14.5) Platelet Count 146 x10^3/uL (140-400) Neutrophils (%) (Auto) 75 % (31-73) Lymphocytes (%) (Auto) 14 % (24-48) Monocytes (%) (Auto) 7 % (0-9) Eosinophils (%) (Auto) 5 % (0-3) Basophils (%) (Auto) 0 % (0-3) Neutrophils # (Auto) 11.0 x10^3/uL (1.8-7.7) Lymphocytes # (Auto) 2.0 x10^3/uL (1.0-4.8) Monocytes # (Auto) 1.0 x10^3/uL (0.0-1.1) Eosinophils # (Auto) 0.7 x10^3/uL (0.0-0.7) Basophils # (Auto) 0.0 x10^3/uL (0.0-0.2) Sodium Level 138 mmol/L (136-145) Potassium Level 3.2 mmol/L (3.5-5.1) Chloride Level 99 mmol/L (98-107) Carbon Dioxide Level 33 mmol/L (21-32) Anion Gap 6 (6-14) Blood Urea Nitrogen 16 mg/dL (7-20) Creatinine 0.7 mg/dL (0.6-1.0) Estimated GFR (Cockcroft-Gault) 90.1 Glucose Level 111 mg/dL (70-99) Calcium Level 8.6 mg/dL (8.5-10.1) Medications Active Scripts Medications Dose Route/Sig Max Daily Dose Days Date Category No Known Medications Prior To Admisstion (Info) Each 1 Each 1X 11/13/20 Reported Impression . IMPRESSION: 1. Acute hypoxemic respiratory failure./ARDS received tocilizumab, remdesivir. 2. COVID-19 viral pneumonia. 3. Abnormal x-ray 4. Possible bacterial pneumonia. 5. Leukocytosis, 6. Elevated transaminases. Plan . Updated 11/30 Continue titrating FiO2 down Steroids DVT GI prophylax updated 11/29 Continue titrating oxygen down Continue current support Discussed with RT and RN Updated 11/28 Continue current oxygen support Steroids Received tocilizumab Nutritional support Received remdesivir Updated 11/27 Continue current support Steroids Status post tocilizumab Nutritional support JUNAID PISANO MD Nov 30, 2020 08:44
[2020-11-30] MEDS: ZINC SULFATE 220 MG CAPSULE. PO SCH (09:00)
[2020-11-30] MEDS: DOXYCYCLINE HYCLATE 100 MG in IV DEXTROSE 5% 100ML 100 ML IV SCH ×2 (09:00→20:36)
[2020-11-30] MEDS: ASCORBIC ACID 1,000 MG TABLET PO SCH ×3 (09:00→20:36)
[2020-11-30] MEDS: FLUTICASONE 50MCG/NASAL SPRAY 16GM BOTTLE. NS SCH (09:00)
[2020-11-30] MEDS: DEXAMETHASONE SOD PHOS 4 MG/ML VIAL IVP SCH (09:25)
[2020-11-30] MEDS: PANTOPRAZOLE 40 MG TABLET.DR. PO SCH (09:37)
[2020-11-30] MEDS: NYSTATIN 100,000 UNITS/ML 5 ML ORAL.SUSP. SWSW SCH ×4 (09:37→20:36)
[2020-11-30] MEDS: LACTOBACILLUS RHAMNOSUS GG 1 CAPSULE. PO SCH ×2 (09:37→20:36)
[2020-11-30] MEDS: MAGNESIUM OXIDE 400 MG TABLET PO SCH (09:37)
[2020-11-30] MEDS: THIAMINE 100 MG TABLET. PO SCH (09:37)
[2020-11-30] MEDS: MULTIVITAMIN with MINERAL TABLET. PO SCH (09:38)
--- NOTE | 2020-11-30 11:49 | NUR ---
SS following up with discharge planning. SS reviewed pt chart and discussed with pt RN. Pt is currently on Vapotherm at 25 liters and 70%. COVID19 positive. Pt on IV Decadron, IV Zosyn, and IV Doxycycline. PO diet. Self pay. Med Assist following. PT/OT reordered. SS will continue to follow for discharge planning.
[2020-11-30 11:54] VITALS: BP 126/84
[2020-11-30] MEDS: ACETAMINOPHEN 325 MG TABLET. PO PRN (12:01)
--- NOTE | 2020-11-30 12:47 | PDOC ---
[facility] [facility] PROGRESS NOTE Date of Service DOS: DATE: 11/30/20 TIME: 12:46 Chief Complaint Chief Complaint A/P: Acute hypoxic respiratory failure COVID-19 pneumonia - s/p remdesivir, tocilizumab. Continuing on steroids Elevated creatinine concerning for rhabdomyolysis versus myopathy Lymphopenia Transaminitis Hypokalemia Moderate protein malnutrition Thrush - noted 11/24. likely due to steroids, antibiotics, diflucan x1, throat spray History of Present Illness History of Present Illness 11/30 Patient evaluated and examined at bedside. Was still requiring Vapotherm saturating in the mid 90s. She was eating lunch when I saw her. Continuing treatment for Covid with antibiotics and steroids. Wean O2 as tolerated. Plan of care discussed with bedside RN. 11/29/2020: Pt was seen and examined in ICU SpO2 96% while on 32L vapotherm and 80% FiO2 Tolerating PO with potato chips at bedside. Resting in NAD Chart reviewed. Discussed with RN. 11/28/2020: Pt was seen in ICU Resting with no apparent distress SpO2 98% while on 40L vapotherm. Chart reviewed. Discussed with RN. 30 MIN PT exam, chart review. > 50% of time spent with exam, chart review, pt care coordination. 11/27/2020 Patient seen and examined in the ICU she is still on Vapotherm 40 L 100% FiO2 discussed with RN chart reviewed Despite diuresis and good urine output back on 40 L/min 100% FiO2 Vapotherm with supplemental facemask O2. Discussed with patient she has been getting ICU level care her entire hospital stay and an ICU bed may be available. Discussed with pulmonology she requires ICU. She is asking if she can just go home instead. Advised of the risks of . Discussed with her and her significant other Orion on the phone, she is amenable to ICU transfer. 11/25: WBC 23.8 metabolic panel within normal limits. Afebrile. Now requiring 40 L/min Vapotherm, had a bad night, overheated, anxious. CXR worse, given lasix. 11/24: Afebrile. Sore throat today, appears to be thrush. O2 saturations 91% on 30 l/min 100 FiO2 vapotherm. Berumen out. 11/23: Afebrile. Slept again overnight. O2 saturations 91% on 30 L/min 100% FiO2. She is much more alert today less anxious. Eating a little more. Wants to get up to chair and have Berumen catheter removed today and start with therapy. 11/22: Afebrile. Slept overnight. O2 saturations minimally improved now on 30 L/min 100% FiO2 Vapotherm with saturations 91 to 93%. She is a little less anxious. Still eating very little. Very weak. 11/21: Overnight with desaturations still requiring 40 L/min 100% FiO2 Vapotherm with supplemental facemask O2 15 L. Significant desaturations with movement. Not eating much at all. Intermittently confused when she takes off her O2 11/20: Overnight was chewing on her oxygen to try to increase the levels. She is seen with O2 saturations 92% on 40 L/min 100% FiO2 Vapotherm. She is able to transition to chair but has significant O2 desaturations. Is eating but not 1% of her meals. No diarrhea at this time. 11/19/2020: Pt seen and examined. Discussed with RN. Chart reviewed. On Vapotherm 40L 100% FiO2. On 15L O2 per non-rebreather. O2 saturation at 98%. Pt up in chair and reports feeling better today. 11/18/2020: Pt seen and examined. Discussed with RN. Chart reviewed. On Vapotherm 40L 100% FiO2. On 15L O2 per non-rebreather. Pt resting, NAD. Nurse reports pt was able to sit on edge of bed and eat breakfast without desaturation of O2. 11/17/2020: Pt seen and examined. Chart reviewed. Discussed with RN. On Vapotherm 40L 100% FiO2. On 15L O2 per non-rebreather. Pt reports increased appetite, feel ing better. 11/16/2020: Pt seen and examined. Discussed with RN. Chart reviewed. On Vapotherm 40L 100% FiO2. 11/15/2020: Pt seen and examined. Discussed with RN. Chart reviewed. On Vapotherm 40L 100% FiO2. 11/14/2020: Pt seen and examined. Discussed with RN. Chart reviewed. On 4 L O2 per NC. Vitals/I&O Vitals/I&O: Vital Signs Date Time Temp Pulse Resp B/P (MAP) Pulse Ox O2 Delivery O2 Flow Rate FiO2 11/30/20 12:14 95 VAPOTHERM 25.0 11/30/20 11:54 97.8 128 26 126/84 (98) 97.8 I & O 11/29/20 11/29/20 11/30/20 15:00 23:00 07:00 Intake Total 500 ml 130 ml 100 ml Output Total 700 ml 1300 ml 100 ml Balance -200 ml -1170 ml 0 ml Physical Exam Physical Exam: Pt laying in bed in NAD SpO2 96% while on 32L vapotherm and 80% FiO2 General: Alert, Oriented X3, Cooperative, No acute distress Heart: Regular rate, Normal S1, Normal S2 Lungs: Clear Abdomen: Soft Extremities: No clubbing, No cyanosis Skin: No rashes, No breakdown, No significant lesion Assessment and Plan Assessmemt and Plan Problems Medical Problems: (1) Community acquired pneumonia Status: Acute (2) Hypokalemia Status: Acute (3) Hypoxia Status: Acute (4) Lab test positive for detection of COVID-19 virus Status: Acute Comment Review of Relevant I have reviewed the following items lenny (where applicable) has been applied. Justifications for Admission Other Justification COVID-19 positive test (U07.1, COVID-19) with Acute Pneumonia (J12.89, Other viral pneumonia) (If respiratory failure or sepsis present, add as separate assessment) ANGIE ROSAS MD Nov 30, 2020 12:47
[2020-11-30 15:04] VITALS: BP 118/85
[2020-11-30 19:31] VITALS: BP 140/88
[2020-11-30] MEDS: ENOXAPARIN 40 MG/0.4 ML SYRINGE. SQ SCH (20:36)
--- NOTE | 2020-11-30 20:37 | NUR ---
Refusing HS Vit C dose claiming it upsets her stomach.
[2020-11-30 22:52] VITALS: BP 134/82
[2020-12-01] MEDS: ONDANSETRON PF 4 MG/2 ML VIAL. IVP PRN ×2 (00:14→16:47)
[2020-12-01] MEDS: ACETAMINOPHEN 325 MG TABLET. PO PRN ×3 (01:13→08:43)
[2020-12-01 02:37] VITALS: BP 117/82
[2020-12-01] MEDS: PIPERACILLIN/TAZOBACTAM 3.375 GM in IV NORMAL SALINE 50ML 50 ML IV SCH ×2 (05:11→11:07)
[2020-12-01] MEDS: CLOTRIMAZOLE 10 MG TROCHE. MM SCH ×5 (05:12→21:21)
[2020-12-01 07:00] VITALS: BP 144/88
[2020-12-01] MEDS ORDERED: STERILE WATER for RESP 2,000 ML BAG. INH PRN (07:15)
--- NOTE | 2020-12-01 08:20 | PDOC ---
PULMONARY PROGRESS NOTES DATE: 12/01/20 TIME: 08:20 Subjective No new events Feels better, down to 25 L flow 70% FiO2 Vitals Vital Signs Date Time Temp Pulse Resp B/P (MAP) Pulse Ox O2 Delivery O2 Flow Rate FiO2 12/01/20 07:43 95 VAPOTHERM 20.0 12/01/20 02:37 97.6 114 22 117/82 (94) 97.6 Comments On visual inspection, no distress nc at rrr no accessory muscle use no rash Lungs: Clear Medications Active Scripts Medications Dose Route/Sig Max Daily Dose Days Date Category No Known Medications Prior To Admisstion (Info) Each 1 Each 1X 11/13/20 Reported Impression . IMPRESSION: 1. Acute hypoxemic respiratory failure./ARDS received tocilizumab, remdesivir. 2. COVID-19 viral pneumonia. 3. Abnormal x-ray 4. Possible bacterial pneumonia. 5. Leukocytosis, 6. Elevated transaminases. Plan . Updated 12/01 Currently on 65% FiO2 20 L of oxygen JACK Berumen Discussed with RN and RT Steroids Received tocilizumab updated 11/30 Continue titrating FiO2 down Steroids DVT GI prophylax updated 11/29 Continue titrating oxygen down Continue current support Discussed with RT and RN Updated 11/28 Continue current oxygen support Steroids Received tocilizumab Nutritional support Received remdesivir Updated 11/27 Continue current support Steroids Status post tocilizumab Nutritional support JUNAID PISANO MD Dec 01, 2020 08:20
[2020-12-01] MEDS: NYSTATIN 100,000 UNITS/ML 5 ML ORAL.SUSP. SWSW SCH ×4 (08:40→20:49)
[2020-12-01] MEDS: DOXYCYCLINE HYCLATE 100 MG in IV DEXTROSE 5% 100ML 100 ML IV SCH (08:42)
[2020-12-01] MEDS: THIAMINE 100 MG TABLET. PO SCH (08:43)
[2020-12-01] MEDS: MULTIVITAMIN with MINERAL TABLET. PO SCH (08:43)
[2020-12-01] MEDS: ZINC SULFATE 220 MG CAPSULE. PO SCH (08:44)
[2020-12-01] MEDS: LACTOBACILLUS RHAMNOSUS GG 1 CAPSULE. PO SCH ×2 (08:44→20:49)
[2020-12-01] MEDS: PANTOPRAZOLE 40 MG TABLET.DR. PO SCH (08:44)
[2020-12-01] MEDS: DEXAMETHASONE SOD PHOS 4 MG/ML VIAL IVP SCH (08:44)
[2020-12-01] MEDS: ASPIRIN CHEWABLE 81 MG TABLET. PO SCH (08:44)
[2020-12-01] MEDS: MAGNESIUM OXIDE 400 MG TABLET PO SCH (08:44)
[2020-12-01] MEDS: FLUTICASONE 50MCG/NASAL SPRAY 16GM BOTTLE. NS SCH (08:45)
[2020-12-01] MEDS: ASCORBIC ACID 1,000 MG TABLET PO SCH ×3 (08:45→20:49)
[2020-12-01 11:00] VITALS: BP 121/73
--- NOTE | 2020-12-01 11:50 | NUR ---
SS following up with discharge planning. SS reviewed pt chart and discussed with pt RN. Pt is currently on Vapotherm at 20 liters and 65%. COVID19 positive. PT/OT ordered. Pt on IV Decadron, IV Zosyn, and IV Doxycycline. Self pay. Med Assist following. SS will continue to follow for discharge planning .
--- NOTE | 2020-12-01 12:57 | PDOC ---
[facility] PROGRESS NOTE Date of Service DOS: DATE: 12/01/20 TIME: 12:55 Chief Complaint Chief Complaint A/P: Acute hypoxic respiratory failure continue broad-spectrum antibiotic COVID-19 pneumonia - s/p remdesivir, tocilizumab. Continuing on steroids Elevated creatinine concerning for rhabdomyolysis versus myopathy Lymphopenia Transaminitis Hypokalemia Moderate protein malnutrition Thrush -on swish and spit nystatin History of Present Illness History of Present Illness 12/01 Patient evaluated and examined at bedside. Still on Vapotherm requested to start weaning as tolerated. Continue COVID treatments with antibiotics and steroids. PT OT as tolerated. Can probably be discharged once O2 weaned down to a more tolerable level. 11/30 Patient evaluated and examined at bedside. Was still requiring Vapotherm saturating in the mid 90s. She was eating lunch when I saw her. Continuing treatment for Covid with antibiotics and steroids. Wean O2 as tolerated. Plan of care discussed with bedside RN. 11/29/2020: Pt was seen and examined in ICU SpO2 96% while on 32L vapotherm and 80% FiO2 Tolerating PO with potato chips at bedside. Resting in NAD Chart reviewed. Discussed with RN. 11/28/2020: Pt was seen in ICU Resting with no apparent distress SpO2 98% while on 40L vapotherm. Chart reviewed. Discussed with RN. 30 MIN PT exam, chart review. > 50% of time spent with exam, chart review, pt care coordination. 11/27/2020 Patient seen and examined in the ICU she is still on Vapotherm 40 L 100% FiO2 discussed with RN chart reviewed Despite diuresis and good urine output back on 40 L/min 100% FiO2 Vapotherm with supplemental facemask O2. Discussed with patient she has been getting ICU level care her entire hospital stay and an ICU bed may be available. Discussed with pulmonology she requires ICU. She is asking if she can just go home instead. Advised of the risks of . Discussed with her and her significant other Orion on the phone, she is amenable to ICU transfer. 11/25: WBC 23.8 metabolic panel within normal limits. Afebrile. Now requiring 40 L/min Vapotherm, had a bad night, overheated, anxious. CXR worse, given lasix. 11/24: Afebrile. Sore throat today, appears to be thrush. O2 saturations 91% on 30 l/min 100 FiO2 vapotherm. Berumen out. 11/23: Afebrile. Slept again overnight. O2 saturations 91% on 30 L/min 100% FiO2. She is much more alert today less anxious. Eating a little more. Wants to get up to chair and have Berumen catheter removed today and start with therapy. 11/22: Afebrile. Slept overnight. O2 saturations minimally improved now on 30 L/min 100% FiO2 Vapotherm with saturations 91 to 93%. She is a little less anxious. Still eating very little. Very weak. 11/21: Overnight with desaturations still requiring 40 L/min 100% FiO2 Vapotherm with supplemental facemask O2 15 L. Significant desaturations with movement. Not eating much at all. Intermittently confused when she takes off her O2 11/20: Overnight was chewing on her oxygen to try to increase the levels. She is seen with O2 saturations 92% on 40 L/min 100% FiO2 Vapotherm. She is able to transition to chair but has significant O2 desaturations. Is eating but not 1% of her meals. No diarrhea at this time. 11/19/2020: Pt seen and examined. Discussed with RN. Chart reviewed. On Vapotherm 40L 100% FiO2. On 15L O2 per non-rebreather. O2 saturation at 98%. Pt up in chair and reports feeling better today. 11/18/2020: Pt seen and examined. Discussed with RN. Chart reviewed. On Vapotherm 40L 100% FiO2. On 15L O2 per non-rebreather. Pt resting, NAD. Nurse reports pt was able to sit on edge of bed and eat breakfast without desaturation of O2. 11/17/2020: Pt seen and examined. Chart reviewed. Discussed with RN. On Vapotherm 40L 100% FiO2. On 15L O2 per non-rebreather. Pt reports increased appetite, feeling better. 11/16/2020: Pt seen and examined. Discussed with RN. Chart reviewed. On Vapotherm 40L 100% FiO2. 11/15/2020: Pt seen and examined. Discussed with RN. Chart reviewed. On Vapotherm 40L 100% FiO2. 11/14/2020: Pt seen and examined. Discussed with RN. Chart reviewed. On 4 L O2 per NC. Vitals/I&O Vitals/I&O: Vital Signs Date Time Temp Pulse Resp B/P (MAP) Pulse Ox O2 Delivery O2 Flow Rate FiO2 12/01/20 11:49 92 VAPOTHERM 20.0 12/01/20 11:00 96.8 112 22 121/73 (89) 96.8 I & O 11/30/20 11/30/20 12/01/20 15:00 23:00 07:00 Intake Total 540 ml 1250 ml 100 ml Output Total 1450 ml 1200 ml Balance 540 ml -200 ml -1100 ml Physical Exam Physical Exam: Pt laying in bed in NAD SpO2 96% while on 32L vapotherm and 80% FiO2 General: Alert, Oriented X3, Cooperative, No acute distress Heart: Regular rate, Normal S1, Normal S2 Lungs: Clear Abdomen: Soft Extremities: No clubbing, No cyanosis Skin: No rashes, No breakdown, No significant lesion Assessment and Plan Assessmemt and Plan Problems Medical Problems: (1) Community acquired pneumonia Status: Acute (2) Hypokalemia Status: Acute (3) Hypoxia Status: Acute (4) Lab test positive for detection of COVID-19 virus Status: Acute Comment Review of Relevant I have reviewed the following items lenny (where applicable) has been applied. Justifications for Admission Other Justification COVID-19 positive test (U07.1, COVID-19) with Acute Pneumonia (J12.89, Other viral pneumonia) (If respiratory failure or sepsis present, add as separate assessment) ANGIE ROSAS MD Dec 01, 2020 12:57
[2020-12-01 15:00] VITALS: BP 151/91
[2020-12-01 19:55] VITALS: BP 168/103
[2020-12-01] MEDS: ENOXAPARIN 40 MG/0.4 ML SYRINGE. SQ SCH (20:48)
[2020-12-01 22:27] VITALS: BP 133/90
[2020-12-02] MEDS: CLOTRIMAZOLE 10 MG TROCHE. MM SCH ×5 (05:42→21:42)
[2020-12-02] MEDS: PANTOPRAZOLE 40 MG TABLET.DR. PO SCH (06:34)
[2020-12-02 07:00] VITALS: BP 127/86
[2020-12-02] MEDS: NYSTATIN 100,000 UNITS/ML 5 ML ORAL.SUSP. SWSW SCH ×4 (07:32→21:00)
[2020-12-02] MEDS: ACETAMINOPHEN 325 MG TABLET. PO PRN ×2 (07:33→17:19)
[2020-12-02] MEDS: ZINC SULFATE 220 MG CAPSULE. PO SCH (07:33)
[2020-12-02] MEDS: MAGNESIUM OXIDE 400 MG TABLET PO SCH (07:33)
[2020-12-02] MEDS: DEXAMETHASONE SOD PHOS 4 MG/ML VIAL IVP SCH (07:33)
[2020-12-02] MEDS: LACTOBACILLUS RHAMNOSUS GG 1 CAPSULE. PO SCH ×2 (07:33→21:41)
[2020-12-02] MEDS: MULTIVITAMIN with MINERAL TABLET. PO SCH (07:33)
[2020-12-02] MEDS: ASPIRIN CHEWABLE 81 MG TABLET. PO SCH (07:33)
[2020-12-02] MEDS: THIAMINE 100 MG TABLET. PO SCH (07:33)
[2020-12-02] MEDS: ASCORBIC ACID 1,000 MG TABLET PO SCH ×3 (09:00→21:00)
[2020-12-02] MEDS: FLUTICASONE 50MCG/NASAL SPRAY 16GM BOTTLE. NS SCH (09:00)
[2020-12-02 11:00] VITALS: BP 129/91
--- NOTE | 2020-12-02 11:44 | PDOC ---
[facility] PROGRESS NOTE Date of Service DOS: DATE: 12/02/20 TIME: 11:43 Chief Complaint Chief Complaint A/P: Acute hypoxic respiratory failure continue broad-spectrum antibiotic COVID-19 pneumonia - s/p remdesivir, tocilizumab. Continuing on steroids Elevated creatinine concerning for rhabdomyolysis versus myopathy Lymphopenia Transaminitis Hypokalemia Moderate protein malnutrition Thrush -on swish and spit nystatin History of Present Illness History of Present Illness 12/02 Patient evaluated and examined at bedside. Able to wean off Vapotherm yesterday today now on 10 L nasal cannula. Still on antibiotics and steroids for Covid treatment. Continue weaning oxygen. Notable improvement. 12/01 Patient evaluated and examined at bedside. Still on Vapotherm requested to sta rt weaning as tolerated. Continue COVID treatments with antibiotics and steroids. PT OT as tolerated. Can probably be discharged once O2 weaned down to a more tolerable level. 11/30 Patient evaluated and examined at bedside. Was still requiring Vapotherm saturating in the mid 90s. She was eating lunch when I saw her. Continuing treatment for Covid with antibiotics and steroids. Wean O2 as tolerated. Plan of care discussed with bedside RN. 11/29/2020: Pt was seen and examined in ICU SpO2 96% while on 32L vapotherm and 80% FiO2 Tolerating PO with potato chips at bedside. Resting in NAD Chart reviewed. Discussed with RN. 11/28/2020: Pt was seen in ICU Resting with no apparent distress SpO2 98% while on 40L vapotherm. Chart reviewed. Discussed with RN. 30 MIN PT exam, chart review. > 50% of time spent with exam, chart review, pt care coordination. 11/27/2020 Patient seen and examined in the ICU she is still on Vapotherm 40 L 100% FiO2 discussed with RN chart reviewed Despite diuresis and good urine output back on 40 L/min 100% FiO2 Vapotherm with supplemental facemask O2. Discussed with patient she has been getting ICU level care her entire hospital stay and an ICU bed may be available. Discussed with pulmonology she requires ICU. She is asking if she can just go home instead. Advised of the risks of . Discussed with her and her significant other Orion on the phone, she is amenable to ICU transfer. 11/25: WBC 23.8 metabolic panel within normal limits. Afebrile. Now requiring 40 L/min Vapotherm, had a bad night, overheated, anxious. CXR worse, given lasix. 11/24: Afebrile. Sore throat today, appears to be thrush. O2 saturations 91% on 30 l/min 100 FiO2 vapotherm. Berumen out. 11/23: Afebrile. Slept again overnight. O2 saturations 91% on 30 L/min 100% FiO2. She is much more alert today less anxious. Eating a little more. Wants to get up to chair and have Berumen catheter removed today and start with therapy. 11/22: Afebrile. Slept overnight. O2 saturations minimally improved now on 30 L/min 100% FiO2 Vapotherm with saturations 91 to 93%. She is a little less anxious. Still eating very little. Very weak. 11/21: Overnight with desaturations still requiring 40 L/min 100% FiO2 Vapotherm with supplemental facemask O2 15 L. Significant desaturations with movement. Not eating much at all. Intermittently confused when she takes off her O2 11/20: Overnight was chewing on her oxygen to try to increase the levels. She is seen with O2 saturations 92% on 40 L/min 100% FiO2 Vapotherm. She is able to transition to chair but has significant O2 desaturations. Is eating but not 1% of her meals. No diarrhea at this time. 11/19/2020: Pt seen and examined. Discussed with RN. Chart reviewed. On Vapotherm 40L 100% FiO2. On 15L O2 per non-rebreather. O2 saturation at 98%. Pt up in chair and reports feeling better today. 11/18/2020: Pt seen and examined. Discussed with RN. Chart reviewed. On Vapotherm 40L 100% FiO2. On 15L O2 per non-rebreather. Pt resting, NAD. Nurse reports pt was able to sit on edge of bed and eat breakfast without desaturation of O2. 11/17/2020: Pt seen and examined. Chart reviewed. Discussed with RN. On Vapotherm 40L 100% FiO2. On 15L O2 per non-rebreather. Pt reports increased appetite, feeling better. 11/16/2020: Pt seen and examined. Discussed with RN. Chart reviewed. On Vapotherm 40L 100% FiO2. 11/15/2020: Pt seen and examined. Discussed with RN. Chart reviewed. On Vapotherm 40L 100% FiO2. 11/14/2020: Pt seen and examined. Discussed with RN. Chart reviewed. On 4 L O2 per NC. Vitals/I&O Vitals/I&O: Vital Signs Date Time Temp Pulse Resp B/P (MAP) Pulse Ox O2 Delivery O2 Flow Rate FiO2 12/02/20 11:00 96.5 103 18 129/91 (104) 98 Nasal Cannula 10.0 96.5 I & O 12/01/20 12/01/20 12/02/20 15:00 23:00 07:00 Intake Total 770 ml 710 ml 0 ml Output Total 1850 ml 100 ml Balance -1080 ml 610 ml 0 ml Physical Exam Physical Exam: Pt laying in bed in NAD SpO2 96% while on 32L vapotherm and 80% FiO2 General: Alert, Oriented X3, Cooperative, No acute distress Heart: Regular rate, Normal S1, Normal S2 Lungs: Clear Abdomen: Soft Extremities: No clubbing, No cyanosis Skin: No rashes, No breakdown, No significant lesion Assessment and Plan Assessmemt and Plan Problems Medical Problems: (1) Community acquired pneumonia Status: Acute (2) Hypokalemia Status: Acute (3) Hypoxia Status: Acute (4) Lab test positive for detection of COVID-19 virus Status: Acute Comment Review of Relevant I have reviewed the following items lenny (where applicable) has been applied. Justifications for Admission Other Justification COVID-19 positive test (U07.1, COVID-19) with Acute Pneumonia (J12.89, Other viral pneumonia) (If respiratory failure or sepsis present, add as separate assessment) ANGIE ROSAS MD Dec 02, 2020 11:44
[2020-12-02 15:00] VITALS: BP 121/79
[2020-12-02 19:46] VITALS: BP 131/83
[2020-12-02] MEDS: ENOXAPARIN 40 MG/0.4 ML SYRINGE. SQ SCH (21:43)
[2020-12-02 23:10] VITALS: BP 148/76
[2020-12-03] MEDS: ACETAMINOPHEN 325 MG TABLET. PO PRN ×2 (02:51→08:27)
[2020-12-03 03:01] VITALS: BP 137/76
[2020-12-03 06:06] LABS: CALCIUM 8.7 mg/dL (8.5-10.1); CREATININE 0.6 mg/dL (0.6-1.0); GFR 107.2; POTASSIUM 3.8 mmol/L (3.5-5.1)
[2020-12-03] MEDS: CLOTRIMAZOLE 10 MG TROCHE. MM SCH ×5 (06:12→20:13)
[2020-12-03 07:00] VITALS: BP 124/80
[2020-12-03] MEDS: THIAMINE 100 MG TABLET. PO SCH (08:27)
[2020-12-03] MEDS: MAGNESIUM OXIDE 400 MG TABLET PO SCH (08:27)
[2020-12-03] MEDS: ASPIRIN CHEWABLE 81 MG TABLET. PO SCH (08:27)
[2020-12-03] MEDS: LACTOBACILLUS RHAMNOSUS GG 1 CAPSULE. PO SCH ×2 (08:27→20:13)
[2020-12-03] MEDS: ASCORBIC ACID 1,000 MG TABLET PO SCH ×4 (08:27→20:13)
[2020-12-03] MEDS: PANTOPRAZOLE 40 MG TABLET.DR. PO SCH (08:27)
[2020-12-03] MEDS: NYSTATIN 100,000 UNITS/ML 5 ML ORAL.SUSP. SWSW SCH ×4 (08:28→20:15)
[2020-12-03] MEDS: MULTIVITAMIN with MINERAL TABLET. PO SCH (08:28)
[2020-12-03] MEDS: ZINC SULFATE 220 MG CAPSULE. PO SCH (08:28)
[2020-12-03] MEDS: DEXAMETHASONE SOD PHOS 4 MG/ML VIAL IVP SCH (08:28)
[2020-12-03] MEDS: FLUTICASONE 50MCG/NASAL SPRAY 16GM BOTTLE. NS SCH (08:30)
[2020-12-03] MEDS: SENNOSIDES 8.6 MG TABLET PO PRN (08:44)
[2020-12-03 11:00] VITALS: BP 123/80
--- NOTE | 2020-12-03 12:30 | PDOC ---
[facility] PROGRESS NOTE Date of Service DOS: DATE: 12/03/20 TIME: 12:29 Chief Complaint Chief Complaint A/P: Acute hypoxic respiratory failure continue broad-spectrum antibiotic COVID-19 pneumonia - s/p remdesivir, tocilizumab. Continuing on steroids Elevated creatinine concerning for rhabdomyolysis versus myopathy Lymphopenia Transaminitis Hypokalemia Moderate protein malnutrition Thrush -on swish and spit nystatin History of Present Illness History of Present Illness 12/03 Patient evaluated examined at bedside. She is on 10 L nasal cannula I reduced it to 8 and she tolerated well. She was somewhat tearful during exam regarding the length of this illness. Told her that she was definitely improving it really just was taking time to heal this was normal. Hoping to aggressively wean oxygen today. We will go ahead and order 6-minute walk for tomorrow morning in anticipation of possible discharge. 12/02 Patient evaluated and examined at bedside. Able to wean off Vapotherm yesterday today now on 10 L nasal cannula. Still on antibiotics and steroids for Covid treatment. Continue weaning oxygen. Notable improvement. 12/01 Patient evaluated and examined at bedside. Still on Vapotherm requested to start weaning as tolerated. Continue COVID treatments with antibiotics and steroids. PT OT as tolerated. Can probably be discharged once O2 weaned down to a more tolerable level. 11/30 Patient evaluated and examined at bedside. Was still requiring Vapotherm saturating in the mid 90s. She was eating lunch when I saw her. Continuing treatment for Covid with antibiotics and steroids. Wean O2 as tolerated. Plan of care discussed with bedside RN. 11/29/2020: Pt was seen and examined in ICU SpO2 96% while on 32L vapotherm and 80% FiO2 Tolerating PO with potato chips at bedside. Resting in NAD Chart reviewed. Discussed with RN. 11/28/2020: Pt was seen in ICU Resting with no apparent distress SpO2 98% while on 40L vapotherm. Chart reviewed. Discussed with RN. 30 MIN PT exam, chart review. > 50% of time spent with exam, chart review, pt care coordination. 11/27/2020 Patient seen and examined in the ICU she is still on Vapotherm 40 L 100% FiO2 discussed with RN chart reviewed Despite diuresis and good urine output back on 40 L/min 100% FiO2 Vapotherm with supplemental facemask O2. Discussed with patient she has been getting ICU level care her entire hospital stay and an ICU bed may be available. Discussed with pulmonology she requires ICU. She is asking if she can just go home instead. Advised of the risks of . Discussed with her and her significant other Orion on the phone, she is amenable to ICU transfer. 11/25: WBC 23.8 metabolic panel within normal limits. Afebrile. Now requiring 40 L/min Vapotherm, had a bad night, overheated, anxious. CXR worse, given lasix. 11/24: Afebrile. Sore throat today, appears to be thrush. O2 saturations 91% on 30 l/min 100 FiO2 vapotherm. Berumen out. 11/23: Afebrile. Slept again overnight. O2 saturations 91% on 30 L/min 100% FiO2. She is much more alert today less anxious. Eating a little more. Wants to get up to chair and have Berumen catheter removed today and start with therapy. 11/22: Afebrile. Slept overnight. O2 saturations minimally improved now on 30 L/min 100% FiO2 Vapotherm with saturations 91 to 93%. She is a little less anxious. Still eating very little. Very weak. 11/21: Overnight with desaturations still requiring 40 L/min 100% FiO2 Vapotherm with supplemental facemask O2 15 L. Significant desaturations with movement. Not eating much at all. Intermittently confused when she takes off her O2 11/20: Overnight was chewing on her oxygen to try to increase the levels. She is seen with O2 saturations 92% on 40 L/min 100% FiO2 Vapotherm. She is able to transition to chair but has significant O2 desaturations. Is eating but not 1% of her meals. No diarrhea at this time. 11/19/2020: Pt seen and examined. Discussed with RN. Chart reviewed. On Vapotherm 40L 100% FiO2. On 15L O2 per non-rebreather. O2 saturation at 98%. Pt up in chair and reports feeling better today. 11/18/2020: Pt seen and examined. Discussed with RN. Chart reviewed. On Vapotherm 40L 100% FiO2. On 15L O2 per non-rebreather. Pt resting, NAD. Nurse reports pt was able to sit on edge of bed and eat breakfast without desaturation of O2. 11/17/2020: Pt seen and examined. Chart reviewed. Discussed with RN. On Vapotherm 40L 100% FiO2. On 15L O2 per non-rebreather. Pt reports increased appetite, feeling better. 11/16/2020: Pt seen and examined. Discussed with RN. Chart reviewed. On Vapotherm 40L 100% FiO2. 11/15/2020: Pt seen and examined. Discussed with RN. Chart reviewed. On Vapotherm 40L 100% FiO2. 11/14/2020: Pt seen and examined. Discussed with RN. Chart reviewed. On 4 L O2 per NC. Vitals/I&O Vitals/I&O: Vital Signs Date Time Temp Pulse Resp B/P (MAP) Pulse Ox O2 Delivery O2 Flow Rate FiO2 12/03/20 08:00 Nasal Cannula 10.0 12/03/20 07:00 96.6 111 18 124/80 (95) 97 96.6 I & O 12/02/20 12/02/20 12/03/20 15:00 23:00 07:00 Intake Total 350 ml 490 ml 200 ml Output Total 100 ml 420 ml 450 ml Balance 250 ml 70 ml -250 ml Physical Exam Physical Exam: Pt laying in bed in NAD SpO2 96% while on 32L vapotherm and 80% FiO2 General: Alert, Oriented X3, Cooperative, No acute distress Heart: Regular rate, Normal S1, Normal S2 Lungs: Clear Abdomen: Soft Extremities: No clubbing, No cyanosis Skin: No rashes, No breakdown, No significant lesion Labs Labs: Laboratory Tests Test 12/03/20 05:15 Sodium Level 143 mmol/L (136-145) Potassium Level 3.8 mmol/L (3.5-5.1) Chloride Level 105 mmol/L (98-107) Carbon Dioxide Level 31 mmol/L (21-32) Anion Gap 7 (6-14) Blood Urea Nitrogen 14 mg/dL (7-20) Creatinine 0.6 mg/dL (0.6-1.0) Estimated GFR (Cockcroft-Gault) 107.2 Glucose Level 120 mg/dL (70-99) Calcium Level 8.7 mg/dL (8.5-10.1) Assessment and Plan Assessmemt and Plan Problems Medical Problems: (1) Community acquired pneumonia Status: Acute (2) Hypokalemia Status: Acute (3) Hypoxia Status: Acute (4) Lab test positive for detection of COVID-19 virus Status: Acute Comment Review of Relevant I have reviewed the following items lenny (where applicable) has been applied. Justifications for Admission Other Justification COVID-19 positive test (U07.1, COVID-19) with Acute Pneumonia (J12.89, Other viral pneumonia) (If respiratory failure or sepsis present, add as separate assessment) ANGIE ROSAS MD Dec 03, 2020 12:30
[2020-12-03 15:00] VITALS: BP 134/88
[2020-12-03] MEDS ORDERED: SIMETHICONE 80 MG TAB.CHEW PO PRN (16:45)
[2020-12-03] MEDS: CALCIUM CARBONATE 500 MG TAB.CHEW PO PRN (17:54)
[2020-12-03] MEDS: ALPRAZolam 1 MG TABLET PO PRN (17:54)
[2020-12-03 19:26] VITALS: BP 125/93
[2020-12-03] MEDS: ENOXAPARIN 40 MG/0.4 ML SYRINGE. SQ SCH (20:13)
[2020-12-03] MEDS: BENZOCAINE/MENTHOL LOZENGE. PO PRN (20:15)
[2020-12-03 22:57] VITALS: BP 130/90
[2020-12-04 03:02] VITALS: BP 118/75
[2020-12-04] MEDS: CLOTRIMAZOLE 10 MG TROCHE. MM SCH ×4 (05:23→16:50)
[2020-12-04] MEDS: BENZOCAINE/MENTHOL LOZENGE. PO PRN (05:23)
[2020-12-04 07:00] VITALS: BP 130/88
[2020-12-04] MEDS: ZINC SULFATE 220 MG CAPSULE. PO SCH (08:23)
[2020-12-04] MEDS: ASPIRIN CHEWABLE 81 MG TABLET. PO SCH (08:23)
[2020-12-04] MEDS: THIAMINE 100 MG TABLET. PO SCH (08:23)
[2020-12-04] MEDS: LACTOBACILLUS RHAMNOSUS GG 1 CAPSULE. PO SCH (08:23)
[2020-12-04] MEDS: NYSTATIN 100,000 UNITS/ML 5 ML ORAL.SUSP. SWSW SCH ×3 (08:23→16:50)
[2020-12-04] MEDS: MULTIVITAMIN with MINERAL TABLET. PO SCH (08:23)
[2020-12-04] MEDS: MAGNESIUM OXIDE 400 MG TABLET PO SCH (08:24)
[2020-12-04] MEDS: PANTOPRAZOLE 40 MG TABLET.DR. PO SCH (08:24)
[2020-12-04] MEDS: DEXAMETHASONE SOD PHOS 4 MG/ML VIAL IVP SCH (08:24)
[2020-12-04] MEDS: ASCORBIC ACID 1,000 MG TABLET PO SCH ×2 (08:25→14:00)
[2020-12-04] MEDS: FLUTICASONE 50MCG/NASAL SPRAY 16GM BOTTLE. NS SCH (08:25)
[2020-12-04] MEDS: ACETAMINOPHEN 325 MG TABLET. PO PRN (08:32)
--- NOTE | 2020-12-04 09:36 | PDOC ---
PULMONARY PROGRESS NOTES DATE: 12/04/20 TIME: 09:36 Subjective Patient feels better currently on nasal cannula oxygen Vitals Vital Signs Date Time Temp Pulse Resp B/P (MAP) Pulse Ox O2 Delivery O2 Flow Rate FiO2 12/04/20 07:00 97.5 135 16 130/88 (102) 95 Nasal Cannula 6.0 97.5 Comments On visual inspection, no distress nc at rrr no accessory muscle use no rash Lungs: Clear Labs Laboratory Tests Test 12/03/20 05:15 Sodium Level 143 mmol/L (136-145) Potassium Level 3.8 mmol/L (3.5-5.1) Chloride Level 105 mmol/L (98-107) Carbon Dioxide Level 31 mmol/L (21-32) Anion Gap 7 (6-14) Blood Urea Nitrogen 14 mg/dL (7-20) Creatinine 0.6 mg/dL (0.6-1.0) Estimated GFR (Cockcroft-Gault) 107.2 Glucose Level 120 mg/dL (70-99) Calcium Level 8.7 mg/dL (8.5-10.1) Medications Active Scripts Medications Dose Route/Sig Max Daily Dose Days Date Category No Known Medications Prior To Admisstion (Info) Each 1 Each MC 1X 11/13/20 Reported Impression . IMPRESSION: 1. Acute hypoxemic respiratory failure./ARDS received tocilizumab, remdesivir. 2. COVID-19 viral pneumonia. 3. Abnormal x-ray 4. Possible bacterial pneumonia. 5. Leukocytosis, 6. Elevated transaminases. Plan . Updated 12/[address] Chas Foote to discharge updated 12/01 Currently on 65% FiO2 20 L of oxygen JACK Berumen Discussed with RN and RT Steroids Received tocilizumab JUNAID PISANO MD Dec 04, 2020 09:36
[2020-12-04 11:00] VITALS: BP 127/89
--- NOTE | 2020-12-04 11:00 | PDOC ---
[employer] PROGRESS NOTE Date of Service DOS: DATE: 12/04/20 TIME: 10:59 Chief Complaint Chief Complaint A/P: Acute hypoxic respiratory failure continue broad-spectrum antibiotic COVID-19 pneumonia - s/p remdesivir, tocilizumab. Continuing on steroids Elevated creatinine concerning for rhabdomyolysis versus myopathy Lymphopenia Transaminitis Hypokalemia Moderate protein malnutrition Thrush -on swish and spit nystatin History of Present Illness History of Present Illness 12/04: Afebrile, currently breathing on 6 L nasal cannula. S/P Tocilizumab and remdesivir. We will continue Decadron. Will obtain chest x-ray today. Continue supportive care, continue to wean oxygen. Will obtain 6-minute walk and anticipate discharge today if chest x-ray consistent with clinical impro vement. Greater than 30 minutes was spent managing managing the discharge of this patient. 12/03 Patient evaluated examined at bedside. She is on 10 L nasal cannula I reduced it to 8 and she tolerated well. She was somewhat tearful during exam regarding the length of this illness. Told her that she was definitely improving it really just was taking time to heal this was normal. Hoping to aggressively wean oxygen today. We will go ahead and order 6-minute walk for tomorrow morning in anticipation of possible discharge. 12/02 Patient evaluated and examined at bedside. Able to wean off Vapotherm yesterday today now on 10 L nasal cannula. Still on antibiotics and steroids for Covid treatment. Continue weaning oxygen. Notable improvement. 12/01 Patient evaluated and examined at bedside. Still on Vapotherm requested to start weaning as tolerated. Continue COVID treatments with antibiotics and steroids. PT OT as tolerated. Can probably be discharged once O2 weaned down to a more tolerable level. 11/30 Patient evaluated and examined at bedside. Was still requiring Vapotherm saturating in the mid 90s. She was eating lunch when I saw her. Continuing treatment for Covid with antibiotics and steroids. Wean O2 as tolerated. Plan of care discussed with bedside RN. 11/29/2020: Pt was seen and examined in ICU SpO2 96% while on 32L vapotherm and 80% FiO2 Tolerating PO with potato chips at bedside. Resting in NAD Chart reviewed. Discussed with RN. 11/28/2020: Pt was seen in ICU Resting with no apparent distress SpO2 98% while on 40L vapotherm. Chart reviewed. Discussed with RN. 30 MIN PT exam, chart review. > 50% of time spent with exam, chart review, pt care coordination. 11/27/2020 Patient seen and examined in the ICU she is still on Vapotherm 40 L 100% FiO2 discussed with RN chart reviewed Despite diuresis and good urine output back on 40 L/min 100% FiO2 Vapotherm with supplemental facemask O2. Discussed with patient she has been getting ICU level care her entire hospital stay and an ICU bed may be available. Discussed with pulmonology she requires ICU. She is asking if she can just go home instead. Advised of the risks of . Discussed with her and her significant other Orion on the phone, she is amenable to ICU transfer. 11/25: WBC 23.8 metabolic panel within normal limits. Afebrile. Now requiring 40 L/min Vapotherm, had a bad night, overheated, anxious. CXR worse, given lasix. 11/24: Afebrile. Sore throat today, appears to be thrush. O2 saturations 91% on 30 l/min 100 FiO2 vapotherm. Berumen out. 11/23: Afebrile. Slept again overnight. O2 saturations 91% on 30 L/min 100% FiO2. She is much more alert today less anxious. Eating a little more. Wants to get up to chair and have Berumen catheter removed today and start with therapy. 11/22: Afebrile. Slept overnight. O2 saturations minimally improved now on 30 L/min 100% FiO2 Vapotherm with saturations 91 to 93%. She is a little less anxious. Still eating very little. Very weak. 11/21: Overnight with desaturations still requiring 40 L/min 100% FiO2 Vapotherm with supplemental facemask O2 15 L. Significant desaturations with movement. Not eating much at all. Intermittently confused when she takes off her O2 11/20: Overnight was chewing on her oxygen to try to increase the levels. She is seen with O2 saturations 92% on 40 L/min 100% FiO2 Vapotherm. She is able to transition to chair but has significant O2 desaturations. Is eating but not 1% of her meals. No diarrhea at this time. 11/19/2020: Pt seen and examined. Discussed with RN. Chart reviewed. On Vapotherm 40L 100% FiO2. On 15L O2 per non-rebreather. O2 saturation at 98%. Pt up in chair and reports feeling better today. 11/18/2020: Pt seen and examined. Discussed with RN. Chart reviewed. On Vapotherm 40L 100% FiO2. On 15L O2 per non-rebreather. Pt resting, NAD. Nurse reports pt was able to sit on edge of bed and eat breakfast without desaturation of O2. 11/17/2020: Pt seen and examined. Chart reviewed. Discussed with RN. On Vapotherm 40L 100% FiO2. On 15L O2 per non-rebreather. Pt reports increased appetite, feeling better. 11/16/2020: Pt seen and examined. Discussed with RN. Chart reviewed. On Vapotherm 40L 100% FiO2. 11/15/2020: Pt seen and examined. Discussed with RN. Chart reviewed. On Vapotherm 40L 100% FiO2. 11/14/2020: Pt seen and examined. Discussed with RN. Chart reviewed. On 4 L O2 per NC. Vitals/I&O Vitals/I&O: Vital Signs Date Time Temp Pulse Resp B/P (MAP) Pulse Ox O2 Delivery O2 Flow Rate FiO2 12/04/20 08:00 Nasal Cannula 6.0 12/04/20 07:00 97.5 135 16 130/88 (102) 95 97.5 I & O 12/03/20 12/03/20 12/04/20 15:00 23:00 07:00 Intake Total 120 ml 0 ml Balance 120 ml 0 ml Physical Exam Physical Exam: Pt laying in bed in NAD SpO2 96% while on 32L vapotherm and 80% FiO2 General: Alert, Oriented X3, Cooperative, No acute distress Heart: Regular rate, Normal S1, Normal S2 Lungs: Clear Abdomen: Soft Extremities: No clubbing, No cyanosis Skin: No rashes, No breakdown, No significant lesion Assessment and Plan Assessmemt and Plan Problems Medical Problems: (1) Community acquired pneumonia Status: Acute (2) Hypokalemia Status: Acute (3) Hypoxia Status: Acute (4) Lab test positive for detection of COVID-19 virus Status: Acute Comment Review of Relevant I have reviewed the following items lenny (where applicable) has been applied. Medications: Current Medications Medications (Trade) Dose Ordered Sig/Mona Route PRN Reason Start Time Stop Time Status Last Admin Dose Admin Simethicone (Gas-X) 80 mg PRN AFTMEALHC PRN PO GAS / BLOATING 12/03/20 16:45 12/03/20 17:54 Justifications for Admission Other Justification COVID-19 positive test (U07.1, COVID-19) with Acute Pneumonia (J12.89, Other viral pneumonia) (If respiratory failure or sepsis present, add as separate assessment) MATTHEW ZIMMERMAN MD Dec 04, 2020 11:00
[2020-12-04] MEDS: CALCIUM CARBONATE 500 MG TAB.CHEW PO PRN (12:11)
--- NOTE | 2020-12-04 12:37 | RAD ---
EXAMINATION: XR CHEST 1V CLINICAL HISTORY: COVID-19, respiratory failure EXAM DATE/TIME: 12/04/2020 11:06 AM COMPARISON: 11/25/2020 FINDINGS: Lines, Tubes, and Devices: Right upper extremity PICC remains in similar position. Cardiomediastinal Silhouette: Stable heart size. Lungs and Pleura: Persistent pulmonary hypoexpansion with diffuse hazy opacities and multifocal patch y opacities bilaterally. Questionable small left pleural effusion. Elevation of the right hemidiaphra gm. Bones and Soft Tissues: No acute osseous abnormality. IMPRESSION: Slightly improved aeration of bilateral lungs with persistent bilateral airspace disease. Questionable small left pleural effusion. Electronically signed by: Negro Dietz DO (12/04/2020 12:35 PM) JUSTYNA
--- NOTE | 2020-12-04 13:37 | NUR ---
SS following up with discharge planning. SS reviewed pt chart and discussed with pt RN. Pt is currently requiring oxygen at six liters nasal canula. COVID19 recovered. Pt has no home oxygen. PT recommended home. Six minute walk ordered. SS met with pt and discussed probable need for home oxygen. Self pay. [facility], ; fax [phone], oxygen cost is approximately $120/month. Pt agreeable to self pay cost for oxygen. Clinical phoned and faxed to [facility]. SS currently awaiting six minute walk results. SS will continue to follow for discharge planning. Addendum: 12/04/20 at 1439 by GIANLUCA SOLIS SS Script received for oxygen. Script and clinical phoned and faxed to [employer], ; fax [phone]. Oxygen tank provided to pt for home. Pt's RN notified.
[2020-12-04 15:00] VITALS: BP 125/90
== END 2020-12-04 19:00 | disposition home or self-care (01) | DRG 871 ==
LOC: ER 10:17 → 6 SOUTH 14:35 → 1 WEST ICU 11-26 16:45 → 6 SOUTH 11-29 16:22
PROVIDERS: ADMIT Internal Medicine; ATTEND Internal Medicine
PROC: XW033E5 Introduction of Remdesivir Anti-infective into Peripheral Vein, Percutaneous Approach, New Technology Group 5 (ICD-10-PCS; principal; 2020-11-14)
PROC: XW033H5 Introduction of Tocilizumab into Peripheral Vein, Percutaneous Approach, New Technology Group 5 (ICD-10-PCS; 2020-11-14)
PROC: 02HV33Z Insertion of Infusion Device into Superior Vena Cava, Percutaneous Approach (ICD-10-PCS; 2020-11-15)
PROC: 5A0935A Assistance with Respiratory Ventilation, Less than 24 Consecutive Hours, High Flow/Velocity Cannula (ICD-10-PCS; 2020-11-25)
PROC: 5A0935A Assistance with Respiratory Ventilation, Less than 24 Consecutive Hours, High Flow/Velocity Cannula (ICD-10-PCS; 2020-12-02)
DX: A41.89 Other specified sepsis (principal); J12.82 Pneumonia due to coronavirus disease 2019; J96.01 Acute respiratory failure with hypoxia; U07.1 COVID-19; E44.0 Moderate protein-calorie malnutrition; M62.82 Rhabdomyolysis; B37.9 Candidiasis, unspecified; D72.810 Lymphocytopenia; E87.6 Hypokalemia; T38.0X5A Adverse effect of glucocorticoids and synthetic analogues, initial encounter; R74.01 Elevation of levels of liver transaminase levels; Z68.31 Body mass index [BMI] 31.0-31.9, adult; Y92.89 Other specified places as the place of occurrence of the external cause
CPT/HCPCS: 36415; 36569; 36600; 71045; 71275; 80048; 80053; 81001; 82550; 82553; 82805; 83735; 83880; 84100; 84145; 84484; 85007; 85025; 85379; 86140; 87040; 87426; 94618; 94760; 96365; 96375; G0238; J0456; J0696; J0780; J1100; J1650; J1940; J2405; J2543; J2920; J3262; J3480; J3490; J7050; J7060; Q9967; 97530-GP; 99285-25; G0378; J7030